=== PATIENT | male | born 1965 | race Caucasian/White ===

== ENCOUNTER 2017-06-22 17:29 | Emergency (ER) | payer MEDICARE, MEDICAID ==
[2017-06-22] MEDS ORDERED: ASPIRIN 81 MG TABLET, CHEWABLE PO ONE (17:43)
--- NOTE | 2017-06-22 17:44 | ER Document Report ---
ED Medical Screen (RME) - General Chief Complaint: Shortness Of Breath Stated Complaint: SHORTNESS OF BREATH TRAVEL OUTSIDE OF THE [place] IN LAST 30 DAYS: No - HPI Notes: 06/22/17 17:44 History of CHF progressive shortness of breath for 3 weeks now with productive cough yellow sputum - Related Data Allergies/Adverse Reactions: fluoxetine [From Prozac] Allergy (Verified 06/22/17 17:37) Past Medical History Renal/ Medical History: Denies: Hx Peritoneal Dialysis Review of Systems - Review of Systems Respiratory: Short of breath Physical Exam - Vital signs Vitals: Temp Pulse Resp BP Pulse Ox 98.3 F 107 H 18 142/62 H 95 06/22/17 17:31 06/22/17 17:31 06/22/17 17:31 06/22/17 17:31 06/22/17 17:31 - Respiratory Breath sounds: Rales, Rhonchi Course - Vital Signs Vital signs: Temp Pulse Resp BP Pulse Ox 98.3 F 107 H 18 142/62 H 95 06/22/17 17:31 06/22/17 17:31 06/22/17 17:31 06/22/17 17:31 06/22/17 17:31
[2017-06-22 18:10] LABS: ABSOLUTE BASOPHILS # (AUTO) 0.1 10^3/uL (0.0-0.2); ABSOLUTE EOSINOPHILS # (AUTO) 0.4 10^3/uL (0.0-0.6); ABSOLUTE LYMPHOCYTES (AUTO) 2.3 10^3/uL (0.5-4.7); ABSOLUTE MONOCYTES (AUTO) 0.6 10^3/uL (0.1-1.4); ABSOLUTE NEUT (AUTO) 3.1 10^3/uL (1.7-8.2); BASOPHILS % (AUTO) 1.2 % (0-2); EOSINOPHILS % (AUTO) 6.4 % (0-6); HEMATOCRIT 40.2 % (37.9-51.0); HGB HCT DIFFERENCE 1.8; LYMPHOCYTES % (AUTO) 35.2 % (13-45); MEAN CORPUSCULAR HEMOGLOBIN 32.1 pg (27.0-33.4); MEAN CORPUSCULAR HGB CONC 34.7 g/dL (32.0-36.0); MEAN CORPUSCULAR VOLUME 92 fl (80-97); MONOCYTES % (AUTO) 9.4 % (3-13); RED BLOOD COUNT 4.35 10^6/uL (4.35-5.55); RED CELL DISTRIBUTION WIDTH 14.3 % (11.5-14.0); SEGMENTED NEUTROPHILS % (AUTO) 47.8 % (42-78); WHITE BLOOD COUNT 6.5 10^3/uL (4.0-10.5)
[2017-06-22 18:28] LABS: ALANINE AMINOTRANSFERASE 79 U/L (21-72); ALBUMIN 3.9 g/dL (3.5-5.0); ALKALINE PHOSPHATASE 85 U/L (38-126); ANION GAP 12 (5-19); ASPARTATE AMINO TRANSFERASE 74 U/L (17-59); BILIRUBIN,DIRECT 0.4 mg/dL (0.0-0.4); BILIRUBIN,TOTAL 0.7 mg/dL (0.2-1.3); BLOOD UREA NITROGEN 23 mg/dL (7-20); CALCIUM 9.7 mg/dL (8.4-10.2); CARBON DIOXIDE 28 mmol/L (22-30); CHLORIDE 98 mmol/L (98-107); CREATINE KINASE 416 U/L (55-170); CREATININE RESULT 1.21 mg/dL (0.52-1.25); GLUCOSE 206 mg/dL (75-110); POTASSIUM 3.9 mmol/L (3.6-5.0); SODIUM 137.9 mmol/L (137-145); TOTAL PROTEIN 7.4 g/dL (6.3-8.2)
[2017-06-22 18:40] LABS: CREATINE KINASE MB 9.73 ng/mL (<4.55); TROPONIN I < 0.012 ng/mL
--- NOTE | 2017-06-22 19:27 | RADIOLOGY REPORT (SQ) ---
EXAM DESCRIPTION: CHEST PA/LAT COMPLETED DATE/TIME: 06/22/2017 7:12 pm REASON FOR STUDY: sob COMPARISON: None. NUMBER OF VIEWS: Two view. TECHNIQUE: Frontal and lateral radiographic views of the chest acquired. LIMITATIONS: None. FINDINGS: LUNGS AND PLEURA: No opacities, masses or pneumothorax. No pleural effusion. MEDIASTINUM AND HILAR STRUCTURES: No masses. No contour abnormalities. HEART AND VASCULAR STRUCTURES: Heart enlarged without failure. Aorta normal for age. BONES: No acute findings. HARDWARE: None in the chest. OTHER: No other significant finding. IMPRESSION: CARDIAC ENLARGEMENT WITHOUT FAILURE. TECHNICAL DOCUMENTATION: JOB ID: [id number] [employer]- All Rights Reserved
--- NOTE | 2017-06-22 19:37 | ER Document Report ---
ED General <CORNEL STERN - Last Filed: 06/22/17 19:43> - General Mode of Arrival: Wheelchair Information source: Patient TRAVEL OUTSIDE OF THE [place] IN LAST 30 DAYS: No - HPI Similar symptoms previously: Yes Recently seen / treated by doctor: No <YEIMYGRISELDA - Last Filed: 06/22/17 20:28> - General Chief Complaint: Shortness Of Breath Stated Complaint: SHORTNESS OF BREATH Time Seen by Provider: 06/22/17 17:35 Notes: Patient is a 52 year old male presenting to the emergency department for intermittent shortness of breath x3 weeks. Patient also complains of productive cough with yellow phlegm which occurs 4-5 times a day. Patient states his lower extremity edema is less than normal. Patient's PCP is in [place] and he still sees that provider since he moved here in October 2016 after his . Patient has a history of insulin dependent diabetes mellitus, hypertension, arthritis, CAD, COPD, depression, and had a IA in 2008 or 2009 with a stent placed. Patient does not have his medications or list of medicines with him but states he takes Lasix, Lisinopril, Lyrica, Novalog (50 units x3 per day), Levemir (60 units x3 per day), Percocet, arthritis medications, and inhalers x2 (steroid and Albuterol). Patient also has sleep apnea and uses BiPAP at night. Patient is a former smoker and states he drinks moonshine about 1-2 times per month. (GRISELDA GAFFNEY) - Related Data Allergies/Adverse Reactions: fluoxetine [From Prozac] Allergy (Verified 06/22/17 17:37) Past Medical History - General Information source: Patient - Social History Smoking Status: Former Smoker Cigarette use (# per day): No Chew tobacco use (# tins/day): No Smoking Education Provided: No Frequency of alcohol use: [place] x 1-2 times per month Drug Abuse: None Family History: None Patient has suicidal ideation: No Patient has homicidal ideation: No - Past Medical History Cardiac Medical History: Reports: Hx Congestive Heart Failure, Hx Coronary Artery Disease, Hx Heart Attack - x1 2008 or 2010, Hx Hypertension Pulmonary Medical History: Reports: Hx COPD Endocrine Medical History: Reports: 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 Musculoskeltal Medical History: Reports Hx Arthritis Psychiatric Medical History: Reports: Hx Depression Past Surgical History: Reports: Hx Cardiac Catheterization - w/ stent x1 (2008 or 2009) <GRISELDA GAFFNEY - Last Filed: 06/22/17 20:28> Review of Systems - Review of Systems Constitutional: No symptoms reported EENT: No symptoms reported Cardiovascular: No symptoms reported Respiratory: See HPI, Cough, Short of breath, Sputum Gastrointestinal: No symptoms reported Genitourinary: No symptoms reported Male Genitourinary: No symptoms reported Musculoskeletal: No symptoms reported Skin: No symptoms reported Hematologic/Lymphatic: No symptoms reported Neurological/Psychological: No symptoms reported -: Yes All other systems reviewed and negative <GRISELDA GAFFNEY - Last Filed: 06/22/17 20:28> Physical Exam <CORNEL STERN - Last Filed: 06/22/17 19:43> - Vital signs Interpretation: Normal <GRISELDA GAFFNEY - Last Filed: 06/22/17 20:28> - Vital signs Vitals: Temp Pulse Resp BP Pulse Ox 98.3 F 107 H 18 142/62 H 95 06/22/17 17:31 06/22/17 17:31 06/22/17 17:31 06/22/17 17:31 06/22/17 17:31 - Notes Notes: GENERAL: Alert, interacts well. No acute distress. HEAD: Normocephalic, atraumatic. EYES: Appear normal. Pupils equal, round, and reactive to light. ENT: Moist mucus membranes, tongue midline. NECK: Full range of motion. Supple. Trachea midline. LUNGS: Clear to auscultation bilaterally, no wheezes, rales, or rhonchi. No respiratory distress. HEART: Regular rate and rhythm. No murmurs, gallops, or rubs. ABDOMEN: Morbidly obese, non-tender. Non-distended. Normal bowel sounds. EXTREMITIES: Moves all 4 extremities spontaneously. Normal strength. Trace edema to the bilateral lower extremities. NEUROLOGICAL: Alert and oriented x3. Normal speech. No focal neurological deficits. GCS 15. PSYCH: Normal affect, normal mood. SKIN: Warm, dry, normal turgor. No rashes or lesions noted. (GRISELDA GAFFNEY) Course - Laboratory Result Diagrams: 06/22/17 17:55 06/22/17 17:55 - Diagnostic Test Radiology reviewed: Image reviewed, Reports reviewed - Chest x-ray shows cardiomegaly without failure or infiltrate - EKG Interpretation by Me EKG shows normal: Sinus rhythm, [place], Intervals. abnormal: QRS Complexes - Borderline anterior R-wave progression, ST-T Waves - Borderline anterolateral T abnormality Rate: Normal - 97 Rhythm: NSR Voltage: Decreased voltage, Throughout When compared to previous EKG there are: Previous EKG unavailable <CORNEL STERN - Last Filed: 06/22/17 19:43> - Laboratory Result Diagrams: 06/22/17 17:55 06/22/17 17:55 <GRISELDA GAFFNEY - Last Filed: 06/22/17 20:28> - Vital Signs Vital signs: Temp Pulse Resp BP Pulse Ox 98.3 F 107 H 16 139/84 H 96 06/22/17 17:31 06/22/17 17:31 06/22/17 19:16 06/22/17 19:16 06/22/17 19:16 - Laboratory Laboratory results interpreted by me: 06/22/17 06/22/17 06/22/17 17:55 17:55 17:55 RDW 14.3 H Plt Count 146 L Eosinophils % 6.4 H BUN 23 H Glucose 206 H AST 74 H ALT 79 H Creatine Kinase 416 H CK-MB (CK-2) 9.73 H Discharge <CORNEL STERN - Last Filed: 06/22/17 19:43> <GRISELDA GAFFNEY - Last Filed: 06/22/17 20:28> - Discharge Clinical Impression: Bronchitis Condition: Stable Disposition: HOME, SELF-CARE Additional Instructions: Bronchitis: You have acute bronchitis. This disease is an infection or inflammation of the air passageways in your lungs. Symptoms usually include cough, low grade fever, shortness of breath, and wheezing. The cough usually persists for a couple of weeks. Most cases of bronchitis get better without antibiotics. We prescribe antibiotics when we believe bacteria are damaging your airways, or if there's high risk the bronchitis will worsen into pneumonia. Increase your fluid intake. A cool mist humidifier may make your lungs more comfortable. An expectorant (cough medicine that loosens phlegm) can help. If you smoke, STOP!!! Recovery from bronchitis can be somewhat slow, but you should see improvement within a day or two. Repeated episodes of bronchitis may result in lung damage -- for example, chronic bronchitis, recurrent pneumonias, or emphysema. Call the doctor if you develop increasing fever, shortness of breath, chest pain, bloody sputum, or otherwise worsen. If you have not improved at all after several days, contact the physician. TAKE THE MEDICATION PRESCRIBED. FOLLOW UP WITH A LOCAL MEDICAL DOCTOR IF NOT IMPROVING. RETURN TO THE EMERGENCY ROOM IF ANY NEW OR WORSENING SYMPTOMS. Prescriptions: Doxycycline Hyclate 100 mg PO BID #20 tablet Scribe Attestation: 06/22/17 19:42 I personally performed the services described in the documentation, reviewed and edited the documentation which was dictated to the scribe in my presence, and it accurately records my words and actions. (CORNEL STERN) Scribe Documentation - Scribe Written by Adama:: Adama Tanner 06/22/2017 19:46 acting as scribe for :: Art <GRISELDA GAFFNEY - Last Filed: 06/22/17 20:28>
[2017-06-22] MEDS ORDERED: DOXYCYCLINE HYCLATE 100 MG TABLET PO ONE (19:45)
[2017-06-22 20:17] VITALS: BP 145/73
--- NOTE | 2017-06-22 22:02 | EKG REPORT ---
SEVERITY:- ABNORMAL ECG - SINUS RHYTHM LOW VOLTAGE THROUGHOUT CONSIDER INFERIOR INFARCT BORDERLINE R WAVE PROGRESSION, ANTERIOR LEADS BORDERLINE T ABNORMALITIES, ANT-LAT LEADS : Confirmed by: Javier Molina 22-Jun-2017 22:01:41
== END 2017-06-22 20:15 | disposition home or self-care (01) ==
LOC: ER 17:29
DX: J40 Bronchitis, not specified as acute or chronic (principal); R06.02 Shortness of breath; E10.9 Type 1 diabetes mellitus without complications; J44.9 Chronic obstructive pulmonary disease, unspecified; I50.9 Heart failure, unspecified; I25.10 Atherosclerotic heart disease of native coronary artery without angina pectoris; I11.0 Hypertensive heart disease with heart failure; Z79.4 Long term (current) use of insulin; Z87.891 Personal history of nicotine dependence; I25.2 Old myocardial infarction
CPT/HCPCS: 93005; 99285; 36415; 87070; 87205; 82553; 82550; 85025; 80053; 84484; 83880; 71020; 93010; A9270 ×2

== ENCOUNTER 2018-09-19 14:15 | Emergency (ER) | payer MEDICARE ==
[2018-09-19] MEDS ORDERED: KETOROLAC TROMETHAMINE INJ/PF 30 MG/1 ML SDV IM ONE (14:38)
--- NOTE | 2018-09-19 14:40 | ER Document Report ---
ED GI/ - General Chief Complaint: Flank Pain Stated Complaint: LEFT FLANK PAIN Time Seen by Provider: 09/19/18 14:35 Mode of Arrival: Ambulatory Information source: Patient Notes: History of Present Illness Time: [ ] Chief Complaint: [flank pain] [ ] History obtained from [patient] 53 years old male with a history of diabetes presents today with left flank pain, going on since yesterday. Associated with frequency of urination no dysuria denies any hematuria. Pain is constant with on and off exacerbation. Sharp in nature. No fever chills or other constitutional symptoms. Symptoms began: [today] Onset: [gradual] Timing: [intermittent] Quality: [``pain] Intensity: [severe] Location: [flank] Migration: [none] Radiation: [none] Mechanism: [none] Aggravating factors: [none] Relieving factors: [none] Denies significant traumatic injury Denies weakness, numbness, incontinence Denies IV drug use Denies trouble with urination Review of Systems All other systems negative as reviewed. CONSTITUTIONAL No fever. EYES No eye pain. ENT No URI symptoms, No sore throat, No ear pain. CARDIOVASCULAR No chest pain, No palpitations, No edema. RESPIRATORY No Cough, No SOB, No wheezing. GASTROINTESTINAL No abdominal pain, No diarrhea, No vomiting, No constipation, No melena, No rectal bleeding. GENITOURINARY No UTI symptoms, No bleeding. MUSCULOSKELETAL + flank pain. SKIN No Rash. NEUROLOGIC No Headache, No recent seizures, No paralysis, No parathesias. Physical Exam CONSTITUTIONAL Vital signs reviewed, comfortable, Alert and oriented X 3. Morbid obesity HEAD Atraumatic, Normal cephalic. EYES No discharge from eyes, Sclera are not injected, Extraocular muscles intact, Conjunctiva are normal. ENT Ears normal to inspection, Nose examination normal, Oropharynx normal, Mucous membranes pink, moist, normal in color. NECK Normal ROM, No jugular venous distention, No meningeal signs, No carotid bruit. RESPIRATORY/CHEST Chest is non-tender, Breath sounds normal, No respiratory distress. CARDIOVASCULAR RRR, Heart sounds normal. ABDOMEN Abdomen is non-tender, No masses, Bowel sounds normal, No distension, No peritoneal signs. BACK Left flank tenderness. Normal inspection. no focal bony tenderness, no CVA tenderness, no soft tissue tenderness, negative straight leg test bilaterally, bilateral 2+ knee deep tendon reflexes. UPPER EXTREMITY Inspection normal, No cyanosis/clubbing/edema, 2+ radial pulses. LOWER EXTREMITY Inspection normal, No cyanosis/clubbing/edema, 2+ femoral pulses. NEURO Motor exam normal, Sensory exam normal. SKIN Skin is warm and dry, No rash. PSYCHIATRIC Normal affect. TRAVEL OUTSIDE OF THE [place] IN LAST 30 DAYS: No - HPI Notes: 09/19/18 14:40 Dictated - Related Data Allergies/Adverse Reactions: fluoxetine [From Prozac] Allergy (Verified 09/19/18 14:17) Past Medical History - Social History Smoking Status: Never Smoker Cigarette use (# per day): No Chew tobacco use (# tins/day): No Smoking Education Provided: No Frequency of alcohol use: Rare Drug Abuse: None Lives with: Family Family History: None, Reviewed & Not Pertinent - Past Medical History Cardiac Medical History: Reports: Hx Congestive Heart Failure, Hx Coronary Artery Disease, Hx Heart Attack - x1 2008 or 2009, Hx Hypertension Pulmonary Medical History: Reports: Hx COPD Endocrine Medical History: Reports: 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 Renal/ Medical History: Denies: Hx Peritoneal Dialysis Musculoskeletal Medical History: Reports Hx Arthritis Psychiatric Medical History: Reports: Hx Depression Past Surgical History: Reports: Hx Cardiac Catheterization - w/ stent x1 (2008 or 2009) Review of Systems - Review of Systems Notes: Dictated Physical Exam - Vital signs Vitals: Temp Pulse Resp BP Pulse Ox 98.0 F 71 16 143/62 H 98 09/19/18 14:20 09/19/18 14:20 09/19/18 14:20 09/19/18 14:20 09/19/18 14:20 - Notes Notes: Dictated Course - Vital Signs Vital signs: Temp Pulse Resp BP Pulse Ox 98.0 F 71 16 143/62 H 98 09/19/18 14:20 09/19/18 14:20 09/19/18 14:20 09/19/18 14:20 09/19/18 14:20 - Laboratory Result Diagrams: 09/19/18 15:10 09/19/18 15:10 Laboratory results interpreted by me: 09/19/18 09/19/18 09/19/18 15:10 15:10 15:10 RBC 4.24 L RDW 14.5 H Plt Count 115 L Seg Neutrophils % 36.5 L Eosinophils % 9.9 H BUN 38 H Creatinine 1.41 H Est GFR (Non-Af Amer) 52 L Glucose 233 H AST 67 H ALT 77 H Urine Glucose (UA) 50 H Ur Leukocyte Esterase LARGE H - Diagnostic Test Radiology reviewed: Reports reviewed - Renal stone CT reported by radiologist as unremarkable. Discharge - Discharge Clinical Impression: Acute left flank pain UTI (urinary tract infection) Qualifiers: Urinary tract infection type: acute cystitis Hematuria presence: without hematuria Qualified Code(s): N30.00 - Acute cystitis without hematuria Condition: Fair Disposition: HOME, SELF-CARE Instructions: Urinary Tract Infection ([facility]) Prescriptions: Ciprofloxacin HCl [Cipro 500 mg Tablet] 500 mg PO BID #20 tablet
[2018-09-19 15:24] LABS: ABSOLUTE BASOPHILS # (AUTO) 0.1 10^3/uL (0.0-0.2); ABSOLUTE EOSINOPHILS # (AUTO) 0.6 10^3/uL (0.0-0.6); ABSOLUTE LYMPHOCYTES (AUTO) 2.6 10^3/uL (0.5-4.7); ABSOLUTE MONOCYTES (AUTO) 0.4 10^3/uL (0.1-1.4); ABSOLUTE NEUT (AUTO) 2.1 10^3/uL (1.7-8.2); BASOPHILS % (AUTO) 1.3 % (0-2); EOSINOPHILS % (AUTO) 9.9 % (0-6); HEMATOCRIT 39.9 % (37.9-51.0); HEMOGLOBIN 13.7 g/dL (13.5-17.0); MEAN CORPUSCULAR HEMOGLOBIN 32.4 pg (27.0-33.4); MEAN CORPUSCULAR HGB CONC 34.5 g/dL (32.0-36.0); MEAN CORPUSCULAR VOLUME 94 fl (80-97); MONOCYTES % (AUTO) 7.3 % (3-13); PLATELET COUNT 115 10^3/uL (150-450); RED BLOOD COUNT 4.24 10^6/uL (4.35-5.55); RED CELL DISTRIBUTION WIDTH 14.5 % (11.5-14.0); SEGMENTED NEUTROPHILS % (AUTO) 36.5 % (42-78); TOTAL CELLS COUNTED % (AUTO) 100 %; WHITE BLOOD COUNT 5.7 10^3/uL (4.0-10.5)
[2018-09-19 15:33] LABS: APPEARANCE,URINE CLEAR; BILIRUBIN,URINE NEGATIVE (NEGATIVE); COLOR,URINE YELLOW; GLUCOSE, URINE 50 mg/dL (NEGATIVE); KETONES,URINE NEGATIVE (NEGATIVE); LEUKOCYTE ESTERASE,URINE LARGE (NEGATIVE); NITRITE,URINE NEGATIVE (NEGATIVE); PROTEIN,URINE NEGATIVE (NEGATIVE); URINE SPECIFIC GRAVITY 1.014; UROBILINOGEN,URINE NEGATIVE mg/dL (<2.0)
[2018-09-19 15:39] LABS: ALANINE AMINOTRANSFERASE 77 U/L (21-72); ALBUMIN 3.8 g/dL (3.5-5.0); ALKALINE PHOSPHATASE 119 U/L (38-126); ANION GAP 9 (5-19); ASPARTATE AMINO TRANSFERASE 67 U/L (17-59); BILIRUBIN,DIRECT 0.2 mg/dL (0.0-0.4); BILIRUBIN,TOTAL 0.4 mg/dL (0.2-1.3); BLOOD UREA NITROGEN 38 mg/dL (7-20); CARBON DIOXIDE 27 mmol/L (22-30); CHLORIDE 102 mmol/L (98-107); GLUCOSE 233 mg/dL (75-110); POTASSIUM 4.7 mmol/L (3.6-5.0); SODIUM 137.8 mmol/L (137-145)
--- NOTE | 2018-09-19 15:44 | RADIOLOGY REPORT (SQ) ---
EXAM DESCRIPTION: CT LTD RENAL STONE PROTOCOL ON COMPLETED DATE/TIME: 09/19/2018 3:24 pm REASON FOR STUDY: Right flank pain COMPARISON: None. TECHNIQUE: CT scan of the abdomen and pelvis performed without intravenous or oral contrast. Images reviewed with lung, soft tissue, and bone windows. Reconstructed coronal and sagittal MPR images revi ewed. All images stored on PACS. All CT scanners at this facility use dose modulation, iterative reconstruction, and/or weight based d osing when appropriate to reduce radiation dose to as low as reasonably achievable (ALARA). [facility]: Dose Right [facility]: CareDose [facility]: Dose Right [facility]: Teradose 4D [facility]: Novariant RADIATION DOSE: CT Rad equipment meets quality standard of care and radiation dose reduction techniq ues were employed. CTDIvol: 19.2 mGy. DLP: 1094 mGy-cm.mGy. LIMITATIONS: None. FINDINGS: LOWER CHEST: No significant findings. No nodules or infiltrates. NON-CONTRASTED LIVER, SPLEEN, ADRENALS: Mild hepatosplenomegaly with fatty infiltration of the liver. No focal liver masses. No adrenal masses PANCREAS: No masses. No peripancreatic inflammatory changes. GALLBLADDER: No identified stones by CT criteria. No inflammatory changes to suggest cholecystitis. RIGHT KIDNEY AND URETER: No suspicious masses. Assessment limited by lack of IV contrast. No signif icant calcifications. No hydronephrosis or hydroureter. LEFT KIDNEY AND URETER: No suspicious masses. Assessment limited by lack of IV contrast. No signifi cant calcifications. No hydronephrosis or hydroureter. AORTA AND RETROPERITONEUM: No aneurysm. No retroperitoneal masses or adenopathy. BOWEL AND PERITONEAL CAVITY: No obvious masses or inflammatory changes. No free fluid. APPENDIX: Not identified. No right lower quadrant inflammatory change PELVIS, BLADDER, AND ABDOMINAL WALL:No abnormal masses. No free fluid. Bladder normal. BONES: Lower lumbar central stenosis from degenerative disc changes OTHER: No other significant finding. IMPRESSION: No CT findings to explain history of bilateral flank pain COMMENT: Quality ID # [id number]: Final reports with documentation of one or more dose reduction techniques (e.g., Automated exposure control, adjustment of the mA and/or kV according to patient size, use of iterative reconstruction technique) TECHNICAL DOCUMENTATION: JOB ID: [id number] [employer]- All Rights Reserved Reading location - IP/workstation name: [facility]
[2018-09-19 17:51] VITALS: BP 123/87
== END 2018-09-19 18:00 | disposition home or self-care (01) ==
LOC: ER 14:15
DX: N30.00 Acute cystitis without hematuria (principal); R10.9 Unspecified abdominal pain; J44.9 Chronic obstructive pulmonary disease, unspecified; E10.9 Type 1 diabetes mellitus without complications; Z79.4 Long term (current) use of insulin; I50.9 Heart failure, unspecified; I25.10 Atherosclerotic heart disease of native coronary artery without angina pectoris; I25.2 Old myocardial infarction
CPT/HCPCS: 99284; 96372; 36415; 85025; 80053; 81001; 76380; J1885

== ENCOUNTER 2019-02-22 20:09 | Emergency (ER) | payer MEDICARE, MEDICAID ==
[2019-02-22] MEDS ORDERED: ASPIRIN 81 MG TABLET, CHEWABLE PO ONE (20:40)
--- NOTE | 2019-02-22 20:40 | ER Document Report ---
ED Medical Screen (RME) - General Chief Complaint: Chest Pain > 30 Stated Complaint: DIFFICULTY BREATHING,RIGHT SIDED CHEST PAIN Time Seen by Provider: 02/22/19 20:35 Primary Care Provider: KIRK BEAULIEU MD [Primary Care Provider] - Follow up as needed Mode of Arrival: Wheelchair Information source: Patient Notes: Patient presents to the emergency department with complaints of midsternal chest pain with fluttering on the right side of his chest for the past week. Reports history of cardiac disease CHF stents. Patient reports he has had an upset stomach all week with cold sweats. Denies vomiting diarrhea. Reports use BiPAP. Reports he peripheral edema. I have greeted and performed a rapid initial assessment of this patient. A comprehensive ED assessment and evaluation of the patient, analysis of test results and completion of the medical decision making process will be conducted by additional ED providers. Dictation of this chart was performed using voice recognition software; therefore, there may be some unintended grammatical errors. TRAVEL OUTSIDE OF THE [place] IN LAST 30 DAYS: No - Related Data Allergies/Adverse Reactions: fluoxetine [From Prozac] Allergy (Verified 09/19/18 14:17) Past Medical History - Past Medical History Cardiac Medical History: Reports: Hx Congestive Heart Failure, Hx Coronary Artery Disease, Hx Heart Attack - x1 2008 or 2009, Hx Hypertension Pulmonary Medical History: Reports: Hx COPD Endocrine Medical History: Reports: 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 Renal/ Medical History: Denies: Hx Peritoneal Dialysis Musculoskeltal Medical History: Reports Hx Arthritis Psychiatric Medical History: Reports: Hx Depression Past Surgical History: Reports: Hx Cardiac Catheterization - w/ stent x1 (2008 or 2009) Physical Exam - Vital signs Vitals: Temp Pulse Resp BP Pulse Ox 98.0 F 80 22 H 117/51 L 95 02/22/19 20:16 02/22/19 20:16 02/22/19 20:16 02/22/19 20:16 02/22/19 20:16 Course - Vital Signs Vital signs: Temp Pulse Resp BP Pulse Ox 98.0 F 80 22 H 117/51 L 95 02/22/19 20:16 02/22/19 20:16 02/22/19 20:16 02/22/19 20:16 02/22/19 20:16 Doctor's Discharge - Discharge Referrals: KIRK BEAULIEU MD [Primary Care Provider] - Follow up as needed
[2019-02-22 21:06] LABS: ABSOLUTE BASOPHILS # (AUTO) 0.1 10^3/uL (0.0-0.2); ABSOLUTE EOSINOPHILS # (AUTO) 0.3 10^3/uL (0.0-0.6); ABSOLUTE MONOCYTES (AUTO) 0.7 10^3/uL (0.1-1.4); ABSOLUTE NEUT (AUTO) 4.1 10^3/uL (1.7-8.2); BASOPHILS % (AUTO) 0.7 % (0-2); EOSINOPHILS % (AUTO) 3.3 % (0-6); HEMATOCRIT 40.6 % (37.9-51.0); HEMOGLOBIN 13.6 g/dL (13.5-17.0); LYMPHOCYTES % (AUTO) 36.9 % (13-45); MEAN CORPUSCULAR HEMOGLOBIN 31.6 pg (27.0-33.4); MEAN CORPUSCULAR HGB CONC 33.6 g/dL (32.0-36.0); MEAN CORPUSCULAR VOLUME 94 fl (80-97); MONOCYTES % (AUTO) 8.4 % (3-13); PLATELET COUNT 152 10^3/uL (150-450); RED BLOOD COUNT 4.31 10^6/uL (4.35-5.55); SEGMENTED NEUTROPHILS % (AUTO) 50.7 % (42-78); TOTAL CELLS COUNTED % (AUTO) 100 %; WHITE BLOOD COUNT 8.1 10^3/uL (4.0-10.5)
[2019-02-22 21:20] LABS: ALANINE AMINOTRANSFERASE 30 U/L (21-72); ALBUMIN 4.2 g/dL (3.5-5.0); ALKALINE PHOSPHATASE 65 U/L (38-126); ANION GAP 13 (5-19); ASPARTATE AMINO TRANSFERASE 28 U/L (17-59); BILIRUBIN,DIRECT 0.3 mg/dL (0.0-0.4); BILIRUBIN,TOTAL 0.6 mg/dL (0.2-1.3); BLOOD UREA NITROGEN 53 mg/dL (7-20); CARBON DIOXIDE 24 mmol/L (22-30); CHLORIDE 105 mmol/L (98-107); CREATINE KINASE 317 U/L (55-170); GLUCOSE 85 mg/dL (75-110); LIPASE 166.2 U/L (23-300); POTASSIUM 4.1 mmol/L (3.6-5.0); SODIUM 142.3 mmol/L (137-145); TOTAL PROTEIN 7.8 g/dL (6.3-8.2)
--- NOTE | 2019-02-22 21:31 | RADIOLOGY REPORT (SQ) ---
XR CHEST 2 VIEWS HISTORY: Chest pain. COMPARISON: 06/22/2017 FINDINGS: The heart size is enlarged, unchanged from prior study. No pulmonary vascular congestion is seen. No consolidation, pleural effusion, or pneumothorax is seen. There are no acute bony findings. IMPRESSION: No evidence of acute cardiopulmonary disease.
--- NOTE | 2019-02-22 22:23 | ER Document Report ---
ED General - General Chief Complaint: Chest Pain > 30 Stated Complaint: DIFFICULTY BREATHING,RIGHT SIDED CHEST PAIN Time Seen by Provider: 02/22/19 20:35 Primary Care Provider: KIRK BEAULIEU MD [Primary Care Provider] - Follow up tomorrow Mode of Arrival: Wheelchair Notes: Patient is a 53-year-old morbidly obese male who presents the emergency department with a chief complaint of shortness of breath, chest pain, cold sweats, and diarrhea. He describes his chest pain as a fluttering feeling, similar to the feeling that he had when he had an DC in the early 1999. He states he started not feeling well about 2 weeks ago, but today started to have the fluttering feeling. Patient does have a history of CHF, COPD, neuropathy, degenerative joint disease, and diabetes. He states that he has been taking his medications as prescribed, but cannot recall all of his medications. He has history of a stent placement. He has not had a stress test or a cath since his DC in early . He states he also has not seen his primary care provider in the past 2 years. TRAVEL OUTSIDE OF THE [place] IN LAST 30 DAYS: No - Related Data Allergies/Adverse Reactions: fluoxetine [From Prozac] Allergy (Verified 09/19/18 14:17) Past Medical History - General Information source: Patient - Social History Smoking Status: Never Smoker Frequency of alcohol use: Occasional Drug Abuse: None Family History: None, Reviewed & Not Pertinent Patient has suicidal ideation: No Patient has homicidal ideation: No - Past Medical History Cardiac Medical History: Reports: Hx Congestive Heart Failure, Hx Coronary Artery Disease, Hx Heart Attack - x1 2008 or 2009, Hx Hypercholesterolemia, Hx Hypertension Pulmonary Medical History: Reports: Hx COPD Endocrine Medical History: Reports: 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 Renal/ Medical History: Denies: Hx Peritoneal Dialysis Musculoskeletal Medical History: Reports Hx Arthritis Psychiatric Medical History: Reports: Hx Depression Past Surgical History: Reports: Hx Cardiac Catheterization - w/ stent x1 (2008 or 2009) Review of Systems - Review of Systems Notes: REVIEW OF SYSTEMS: CONSTITUTIONAL : Denies recent illness. Denies recent unintentional weight loss. Denies fever, chills, or sweats. EENT: Denies eye, ear, throat, or mouth pain, discharge, or symptoms. Denies nasal or sinus congestion. CARDIOVASCULAR: See HPI RESPIRATORY: See HPI GASTROINTESTINAL: See HPI GENITOURINARY: Denies difficulty urinating, burning, blood in urine, urgency or frequency. MUSCULOSKELETAL: Denies neck and back pain. Denies joint pain or swelling. SKIN: Denies rash, itchiness, or lesions HEMATOLOGIC : Denies easy bruising or bleeding. LYMPHATIC: Denies swollen, painful, enlarged glands. NEUROLOGICAL: Denies no numbness or tingling denies weakness. Denies headache. Denies altered mental status. Denies alteration in speech. PSYCHIATRIC: Denies stress, anxiety, alteration in sleep patterns, or depression. All other systems reviewed and negative. Physical Exam - Vital signs Vitals: Temp Pulse Resp BP Pulse Ox 98.0 F 80 22 H 117/51 L 95 02/22/19 20:16 02/22/19 20:16 02/22/19 20:16 02/22/19 20:16 02/22/19 20:16 - Notes Notes: PHYSICAL EXAMINATION: GENERAL: Morbidly obese, no acute distress. HEAD: Normocephalic, atraumatic. EYES: PERRL, conjunctiva normal, all extraocular movements intact, sclera nonicteric ENT: Moist mucous membranes. NECK: Supple, no noticeable swelling, redness, rash. Normal range of motion. LUNGS: Equal breath sounds bilaterally and clear to auscultation. No wheezes rales or rhonchi. CARDIOVASCULAR: S1-S2, regular rate, regular rhythm. Radial pulses 2+, normal. ABDOMEN: Normoactive bowel sounds. Soft, nontender, no guarding, no rebound tenderness, and no masses palpated. EXTREMITIES: Normal strength and range of motion, no pitting or edema. No cyanosis. NEUROLOGICAL: Moves all extremities upon command. Strength 5/5 in all extremities. PSYCH: Normal mood, normal affect. SKIN: Warm, dry. No rash, lesions, ulcerations noted. Normal skin turgor. Course - Re-evaluation Re-evalutation: 02/22/19 21:45 Patient's initial troponin is 0.14. I am concerned due to the patient's risk factors that he may be having a cardiac event. I have spoke to him about his risk factors and he states that he does not want to stay because he has some things to take care of at home. I have discussed with him that if he does not state that he may . He states that he is okay with that, as he does not have any immediate family in town. He is willing to pay for a second troponin and have a BNP drawn. I discussed all risks and benefits with the patient. 02/22/19 23:56 I have spoke to the patient again and he is adamant about not being admitted to the hospital. I discussed the risk factors. And told him he would be leaving AGAINST MEDICAL ADVICE. He is aware of the risks of leaving. - Vital Signs Vital signs: Temp Pulse Resp BP Pulse Ox 98.0 F 80 18 152/60 H 97 02/22/19 20:16 02/22/19 20:16 02/23/19 00:02 02/23/19 00:02 02/23/19 00:02 - Laboratory Result Diagrams: 02/22/19 20:55 02/22/19 20:55 Laboratory results interpreted by me: 02/22/19 02/22/19 20:55 20:55 RBC 4.31 L RDW 15.0 H BUN 53 H Creatinine 2.46 H Est GFR ( Amer) 33 L Est GFR (Non-Af Amer) 27 L Creatine Kinase 317 H - EKG Interpretation by Me Additional EKG results interpreted by me: 02/22/19 His rhythm with first-degree AV block. NE 224; QRS 110; QT 384; QTC 438. No ST elevations or depressions noted. No significant change from previous EKG done on 06/22/2017. Discharge - Discharge Clinical Impression: Shortness of breath Chest pain Qualifiers: Chest pain type: other chest pain Qualified Code(s): R07.89 - Other chest pain Diarrhea Qualifiers: Diarrhea type: unspecified type Qualified Code(s): R19.7 - Diarrhea, unspecified Condition: Stable Disposition: AGAINST MEDICAL ADVICE Additional Instructions: You are seen today in the emergency department for chest pain, diarrhea, shortness of breath, cold sweats. You are choosing to leave AGAINST MEDICAL ADVICE. I highly recommend that you admitted into the hospital for further cardiac studies, but you do not want to be hospitalized. There is a possibility you could . We have discussed her risk factors and they are high for a heart attack. If you develop chest pain, shortness of breath, difficulty breathing, or have any symptoms that are worrisome to you, please return to the emergency department immediately. Please see your master sheet clerk this week. See your primary care provider tomorrow. Referrals: KIRK BEAULIEU MD [Primary Care Provider] - Follow up tomorrow
--- NOTE | 2019-02-22 23:45 | EKG REPORT ---
SEVERITY:- ABNORMAL ECG - SINUS RHYTHM FIRST DEGREE AV BLOCK LOW VOLTAGE THROUGHOUT CONSIDER INFERIOR INFARCT BORDERLINE R WAVE PROGRESSION, ANTERIOR LEADS NO CHANGE FROM 06/22/17 EKG. : Confirmed by: Hipolito Wells MD 22-Feb-2019 23:45:23
[2019-02-23 01:28] VITALS: BP 156/88
== END 2019-02-23 01:28 | disposition left against medical advice (07) ==
LOC: ER 20:09
DX: R07.9 Chest pain, unspecified (principal); J44.9 Chronic obstructive pulmonary disease, unspecified; R06.02 Shortness of breath; R61 Generalized hyperhidrosis; R19.7 Diarrhea, unspecified; I44.0 Atrioventricular block, first degree; I25.2 Old myocardial infarction; E11.40 Type 2 diabetes mellitus with diabetic neuropathy, unspecified; I25.10 Atherosclerotic heart disease of native coronary artery without angina pectoris; I10 Essential (primary) hypertension; E66.01 Morbid (severe) obesity due to excess calories; Z95.5 Presence of coronary angioplasty implant and graft; Z88.8 Allergy status to other drugs, medicaments and biological substances; Z53.29 Procedure and treatment not carried out because of patient's decision for other reasons
CPT/HCPCS: 93005; 99285; 36415; 82550; 83690; 83735; 85025; 80053; 84484; 83880; 71046; 93010; A9270

== ENCOUNTER 2019-04-28 14:30 | Inpatient (IN) | payer MEDICARE, MEDICAID ==
[2019-04-28] MEDS ORDERED: ASPIRIN 81 MG TABLET, CHEWABLE PO ONE (15:14)
--- NOTE | 2019-04-28 15:14 | ER Document Report ---
ED Medical Screen (RME) - General Chief Complaint: Shortness Of Breath Stated Complaint: DIFFICULTY BREATHING Time Seen by Provider: 04/28/19 15:07 Primary Care Provider: KIRK BEAULIEU MD [Primary Care Provider] - Follow up as needed Mode of Arrival: Wheelchair Information source: Patient Notes: Patient is a 54-year-old male with a history of CHF, COPD and heart attacks with multiple stents placed who presents to the ER today for shortness of breath that has been "going on for a while" but worsened a few days ago, worse with getting up and walking around. He denies any swelling to his legs, states that he has been taking his Lasix. Patient has tried his inhalers for COPD but states that it has not been helping. He describes chest pain as a "tightness" in the center of his chest. He states the chest pain is "not bad." He did take one baby aspirin today. TRAVEL OUTSIDE OF THE [place] IN LAST 30 DAYS: No - Related Data Allergies/Adverse Reactions: fluoxetine [From Prozac] Allergy (Verified 04/28/19 14:33) Past Medical History - General Information source: Patient - Past Medical History Cardiac Medical History: Reports: Hx Congestive Heart Failure, Hx Coronary Artery Disease, Hx Heart Attack - x1 2008 or 2010, Hx Hypercholesterolemia, Hx Hypertension Pulmonary Medical History: Reports: Hx COPD Endocrine Medical History: Reports: 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 Renal/ Medical History: Denies: Hx Peritoneal Dialysis Musculoskeltal Medical History: Reports Hx Arthritis Psychiatric Medical History: Reports: Hx Depression Past Surgical History: Reports: Hx Cardiac Catheterization - w/ stent x1 (2008 or 2009) Review of Systems - Review of Systems Cardiovascular: See HPI Respiratory: See HPI Physical Exam - Vital signs Vitals: Temp Pulse Resp BP Pulse Ox 98.5 F 57 L 19 105/71 96 04/28/19 14:39 04/28/19 14:39 04/28/19 14:39 04/28/19 14:39 04/28/19 14:39 - Notes Notes: PHYSICAL EXAMINATION: GENERAL: Well-appearing and in no acute distress. LUNGS: CTAB and equal. No wheezes rales or rhonchi. HEART: Regular rate and rhythm without murmurs Course - Vital Signs Vital signs: Temp Pulse Resp BP Pulse Ox 98.5 F 57 L 19 105/71 96 07/23/19 14:39 04/28/19 14:39 04/28/19 14:39 04/28/19 14:39 04/28/19 14:39 Doctor's Discharge - Discharge Referrals: KIRK BEAULIEU MD [Primary Care Provider] - Follow up as needed
[2019-04-28 16:07] LABS: ABSOLUTE BASOPHILS # (AUTO) 0.1 10^3/uL (0.0-0.2); ABSOLUTE EOSINOPHILS # (AUTO) 0.2 10^3/uL (0.0-0.6); ABSOLUTE LYMPHOCYTES (AUTO) 2.2 10^3/uL (0.5-4.7); ABSOLUTE MONOCYTES (AUTO) 0.5 10^3/uL (0.1-1.4); BASOPHILS % (AUTO) 0.8 % (0-2); EOSINOPHILS % (AUTO) 2.2 % (0-6); HEMATOCRIT 42.8 % (37.9-51.0); HEMOGLOBIN 14.2 g/dL (13.5-17.0); LYMPHOCYTES % (AUTO) 32.1 % (13-45); MEAN CORPUSCULAR HEMOGLOBIN 30.9 pg (27.0-33.4); MEAN CORPUSCULAR HGB CONC 33.3 g/dL (32.0-36.0); MEAN CORPUSCULAR VOLUME 93 fl (80-97); MONOCYTES % (AUTO) 6.8 % (3-13); PLATELET COUNT 152 10^3/uL (150-450); RED BLOOD COUNT 4.61 10^6/uL (4.35-5.55); SEGMENTED NEUTROPHILS % (AUTO) 58.1 % (42-78); TOTAL CELLS COUNTED % (AUTO) 100 %; WHITE BLOOD COUNT 6.9 10^3/uL (4.0-10.5)
[2019-04-28 16:25] LABS: ANION GAP 10 (5-19); BLOOD UREA NITROGEN 23 mg/dL (7-20); CALCIUM 8.8 mg/dL (8.4-10.2); CARBON DIOXIDE 23 mmol/L (22-30); CHLORIDE 106 mmol/L (98-107); CREATINE KINASE 270 U/L (55-170); GLUCOSE 116 mg/dL (75-110); POTASSIUM 4.4 mmol/L (3.6-5.0)
[2019-04-28] MEDS ORDERED: DILTIAZEM HCL INJ 25 MG/5 ML VIAL ONE (16:27)
--- NOTE | 2019-04-28 16:29 | RADIOLOGY REPORT (SQ) ---
EXAM DESCRIPTION: CHEST 2 VIEWS COMPLETED DATE/TIME: 04/28/2019 3:32 pm REASON FOR STUDY: sob, cp COMPARISON: 02/22/2019 TECHNIQUE: Frontal and lateral radiographic views of the chest acquired. NUMBER OF VIEWS: Two view. LIMITATIONS: None. FINDINGS: LUNGS AND PLEURA: No pneumothorax. No consolidation. Small right pleural effusion. MEDIASTINUM AND HILAR STRUCTURES: Stable. HEART AND VASCULAR STRUCTURES: Stable. BONES: No acute findings. HARDWARE: None in the chest. OTHER: No other significant finding. IMPRESSION: No consolidation. Small right pleural effusion. TECHNICAL DOCUMENTATION: JOB ID: [id number] [place]-72 2010 [employer]- All Rights Reserved Reading location - IP/workstation name: [employer]
[2019-04-28] MEDS ORDERED: DILTIAZEM HCL INJ 25 MG/5 ML VIAL IV ONE (16:32)
[2019-04-28 16:36] LABS: CREATINE KINASE MB 7.38 ng/mL (<4.55)
[2019-04-28 16:37] LABS: TROPONIN I < 0.012 ng/mL
[2019-04-28] MEDS: DILTIAZEM HCL/D5W 125 MG/125 ML RTUINJ IV PRN (16:45)
[2019-04-28 19:05] LABS: ALANINE AMINOTRANSFERASE 26 U/L (21-72); ALBUMIN 4.1 g/dL (3.5-5.0); ALKALINE PHOSPHATASE 77 U/L (38-126); ASPARTATE AMINO TRANSFERASE 24 U/L (17-59); BILIRUBIN,DIRECT 0.4 mg/dL (0.0-0.4); BILIRUBIN,TOTAL 0.9 mg/dL (0.2-1.3); INTERNATIONAL RATION (INR) 1.16; PARTIAL THROMBOPLASTIN TIME 29.3 SEC (23.5-35.8); PROTHROMBIN TIME 14.9 SEC (11.4-15.4); TOTAL PROTEIN 7.5 g/dL (6.3-8.2)
[2019-04-28 19:36] LABS: FREE T3 3.9 pg/mL (2.77-5.27); FREE T4 (FREE THYROXINE) 1.45 ng/dL (0.78-2.19)
[2019-04-28] MEDS ORDERED: NORMAL SALINE 500 ML IV ONE (19:41)
[2019-04-28 19:50] LABS: THYROID STIMULATING HORMONE 2.2 uIU/mL (0.47-4.68)
[2019-04-28] MEDS ORDERED: ENOXAPARIN SODIUM INJ 150 MG/1 ML DISP.SYRIN SUBCUT ONE (19:54)
[2019-04-28] MEDS ORDERED: DIGOXIN INJ 0.5 MG/2 ML AMPULE IV ONE (20:51)
--- NOTE | 2019-04-28 20:52 | ER Document Report ---
Entered by TESSA KILGORE SCRIBE 04/28/19 1829 Acting as scribe for:NORAH HENRY DO ED General - General Chief Complaint: Shortness Of Breath Stated Complaint: DIFFICULTY BREATHING Time Seen by Provider: 04/28/19 15:07 Primary Care Provider: KIRK BEAULIEU MD [Primary Care Provider] - Follow up as needed Mode of Arrival: Wheelchair Notes: Patient is a 54-year-old male with history of COPD and CHF presenting to the emergency department complaining of shortness of breath. Patient states he has been experiencing difficulty breathing for the last few days, and is only gotten worse and feels like a tightness or a squeezing sensation like there is a bowl of Jell-O around his chest. Patient denies using any oxygen at home or having history of CVA. Does admit to using BiPAP at night. Denies any history of atrial fibrillation. TRAVEL OUTSIDE OF THE [place] IN LAST 30 DAYS: No - Related Data Allergies/Adverse Reactions: fluoxetine [From [employer]] Allergy (Verified 04/28/19 14:33) Past Medical History - General Information source: Patient - Social History Smoking Status: Never Smoker Cigarette use (# per day): No Chew tobacco use (# tins/day): No Frequency of alcohol use: None Drug Abuse: None Family History: None, Reviewed & Not Pertinent Patient has suicidal ideation: No Patient has homicidal ideation: No - Past Medical History Cardiac Medical History: Reports: Hx Congestive Heart Failure, Hx Coronary Artery Disease, Hx Heart Attack - x1 2008 or 2010, Hx Hypercholesterolemia, Hx Hypertension Pulmonary Medical History: Reports: Hx COPD Endocrine Medical History: Reports: 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 Respiratory: See HPI, Short of breath Gastrointestinal: No symptoms reported Genitourinary: No symptoms reported Male Genitourinary: No symptoms reported Musculoskeletal: No symptoms reported Skin: No symptoms reported Hematologic/Lymphatic: No symptoms reported Neurological/Psychological: No symptoms reported -: Yes All other systems reviewed and negative Physical Exam - Vital signs Vitals: Temp Pulse Resp BP Pulse Ox 98.5 F 57 L 19 105/71 96 04/28/19 14:39 04/28/19 14:39 04/28/19 14:39 04/28/19 14:39 04/28/19 14:39 Notes: Initial heart rate of 57 appears to be entered in error. Patient has never been in a normal sinus rhythm at a normal rate since he arrived. - Notes Notes: PHYSICAL EXAM GENERAL: Alert, interacts well. No acute distress. Morbidly obese. HEAD: Normocephalic, atraumatic. EYES: Pupils equal, round, and reactive to light. Extraocular movements intact. ENT: Oral mucosa moist, tongue midline. NECK: Full range of motion. Supple. Trachea midline. LUNGS: Clear to auscultation bilaterally, no wheezes, rales, or rhonchi. No respiratory distress. HEART: Faint irregularly irregular, tachycardic. No murmurs, gallops, or rubs. ABDOMEN: Soft, non-tender. Non-distended. Bowel sounds present in all 4 quadrants. No guarding, rigidity, or rebound. EXTREMITIES: Moves all 4 extremities spontaneously. No edema, radial and dorsalis pedis pulses 2/4 bilaterally. No cyanosis. NEUROLOGICAL: Alert and oriented x3. Normal speech. Biceps and patellar DTRs 2+ bilaterally. PSYCH: Normal affect, normal mood. SKIN: Warm, dry, normal turgor. No pallor. Course - Re-evaluation Re-evalutation: 04/28/19 19:45 CBC unremarkable, INR slightly prolonged at 1.16, CMP shows mild bump in the creatinine to 1.34, slight elevation of the BUN to 23, CK and CK-MB are both elevated but troponin is normal, chest x-ray shows small right pleural effusion but no signs of congestive heart failure, EKG does not show a STEMI. EKG on arrival showed A. fib with rapid ventricular response, patient given a bolus of Cardizem and started on a drip of 5 mg, this was eventually titrated up to 20 mg. Patient is tolerating this well, however his heart rate still remains tachycardic ranging between 106 and 130, blood pressure is currently 129/83. Patient did have a hypotensive episode however this was immediately after sitting up and then it resolved, this appears to have been orthostatic in nature. Patient denies any history of atrial fibrillation. This appears to be new onset A. fib with RVR. Will discuss with the hospitalist for admission. 04/28/19 19:46 Patient does state that he feels better while wearing oxygen, patient has not been hypoxic while he is been here, I was able to turn his oxygen completely off while leaving the nasal cannula on and the patient states he feels much better while wearing the nasal cannula. This is obviously placebo effect as he has not been hypoxic and is not actually receiving any additional oxygen via nasal cannula. Patient does use either CPAP or BiPAP at home, patient states he uses "BiPAP at 60" at home. We will attempt to clarify this. 04/28/19 20:51 Patient has been given a dose of digoxin. Discussed with Dr. Beaulieu, given an additional dose of Lovenox and will be admitted to Dr. Beaulieu service. - Vital Signs Vital signs: Temp Pulse Resp BP Pulse Ox 98.5 F 57 L 26 H 115/78 92 04/28/19 14:39 04/28/19 14:39 04/28/19 18:01 04/28/19 18:01 04/28/19 18:01 - Laboratory Result Diagrams: 04/28/19 15:40 04/28/19 15:40 Laboratory results interpreted by me: 04/28/19 04/28/19 15:40 15:40 BUN 23 H Creatinine 1.34 H Est GFR (Non-Af Amer) 55 L Glucose 116 H Creatine Kinase 270 H CK-MB (CK-2) 7.38 H - EKG Interpretation by Me Additional EKG results interpreted by me: 04/28/19 19:46 EKG shows atrial fibrillation at a rate of 146, rapid ventricular response, low voltage, poor R wave progression, no ST segment elevations or depressions per my interpretation. Critical Care Note - Critical Care Note Total time excluding time spent on procedures (mins): 60 Discharge - Discharge Clinical Impression: New onset atrial fibrillation, Atrial fibrillation with RVR, Morbid obesity Condition: Serious Disposition: ADMITTED INPATIENT Admitting Provider: Sonny Unit Admitted: [facility] Referrals: KIRK BEAULIEU MD [Primary Care Provider] - Follow up as needed I personally performed the services described in the documentation, reviewed and edited the documentation which was dictated to the scribe in my presence, and it accurately records my words and actions.
--- NOTE | 2019-04-28 23:16 | EKG REPORT ---
SEVERITY:- ABNORMAL ECG - ATRIAL FIBRILLATION LOW VOLTAGE THROUGHOUT BORDERLINE R WAVE PROGRESSION, ANTERIOR LEADS PROLONGED QT INTERVAL : Confirmed by: Javier Molina 28-Apr-2019 23:15:30
[2019-04-29] MEDS: DILTIAZEM HCL/D5W 125 MG/125 ML RTUINJ IV PRN ×4 (01:43→23:42)
[2019-04-29] MEDS ORDERED: DEXTROSE 40% GEL 15 GM TUBE PO PRN ×2 (08:12)
[2019-04-29] MEDS ORDERED: GLUCAGON,HUMAN RECOMB 1 MG INJ IM PRN (08:12)
[2019-04-29] MEDS ORDERED: DEXTROSE 50%-WATER 25 GM/50 ML DISP.SYRIN IV PRN ×2 (08:12)
[2019-04-29] MEDS ORDERED: DIGOXIN INJ 0.5 MG/2 ML AMPULE IV ONE ×2 (09:00→18:45)
[2019-04-29] MEDS: APIXABAN 5 MG TABLET PO SCH ×2 (09:26→17:36)
[2019-04-29] MEDS ORDERED: DILTIAZEM HCL INJ 25 MG/5 ML VIAL IV ONE (11:02)
[2019-04-29 12:32] LABS: APPEARANCE,URINE CLEAR; BILIRUBIN,URINE NEGATIVE (NEGATIVE); COLOR,URINE YELLOW; GLUCOSE, URINE NEGATIVE (NEGATIVE); KETONES,URINE TRACE mg/dL (NEGATIVE); LEUKOCYTE ESTERASE,URINE LARGE (NEGATIVE); NITRITE,URINE NEGATIVE (NEGATIVE); PROTEIN,URINE NEGATIVE (NEGATIVE); UROBILINOGEN,URINE NEGATIVE mg/dL (<2.0)
[2019-04-29] MEDS: INSULIN LISPRO 100 UNIT/ML 3 ML VIAL SUBCUT SCH ×3 (13:31→22:43)
[2019-04-29] MEDS ORDERED: NITROGLYCERIN 0.4 MG/TAB 25 TAB/BOTTLE SL PRN (18:21)
[2019-04-29] MEDS ORDERED: (PENDING PHARMACY ID) (Levalbuterol Tartrate [Levalbuterol Tartrate Hfa] 1 PUFF) IH PRN (18:21)
--- NOTE | 2019-04-29 19:02 | PDOC H&P ---
History of Present Illness Admission Date/PCP: 04/28/19 21:05 KIRK OSUNKOYA Patient complains of: Difficulty with breathing History of Present Illness: DAVID PHILLIPS is a 54 year old male patient known to my practice who [presented to the ED with few days history of progressive difficulty with breathing. He denied any definite chest pain but reported feeling of heaviness and tightness in his chest that prompted his ED visit. He denied any radiation of uneasy sensation in this upper extremities. No palpitation, diaphoresis, nausea or vomiting. He denied any fever or chills. No cigarette smoking, alcohol abuse or illicit drug usage. His initial evaluation in the E was significant for atrial fibrillation with rapid ventricular rate. He was managed with IV Cardizem bolus and eventually started on infusion drip therapy. He had IV Digoxin administration with slight improvement in his heart rate. There was associated difficulty with breathing that improved with CPAP support. Patient has history of SAMY and claimed compliance with BiPAP usage at home. His morbidities include Congestive Heart Failure, Coronary Artery Disease, old Myocardial infarction, Hypertension, Hyperlipidemia, COPD, Diabetes Mellitus Type 2, Osteoarthritis, and Depression. Past Medical History Cardiac Medical History: Reports: Congestive Heart Failure, Coronary Artery Disease, Myocardial Infarction - x1 2008 or 2009, Hyperlipidema, Hypertension Pulmonary Medical History: Reports: Chronic Obstructive Pulmonary Disease (COPD) Endocrine Medical History: Reports: Diabetes Mellitus Type 2 - insulin-dependent Musculoskeltal Medical History: Reports: Arthritis Psychiatric Medical History: Reports: Depression Past Surgical History Past Surgical History: Reports: Cardiac Catheterization - w/ stent x1 (2008 or 2009) Social History Smoking Status: Never Smoker - Advance Directive Resuscitation Status: Full Code Family History Family History: None, Reviewed & Not Pertinent Parental Family History Reviewed: Yes Children Family History Reviewed: Yes Sibling(s) Family History Reviewed.: Yes Medication/Allergy Home Medications: Allopurinol [Zyloprim 300 mg Tablet] 300 mg PO DAILY 04/29/19 Amlodipine Besylate [Norvasc 5 mg Tablet] 5 mg PO Q12 04/29/19 Aspirin [Ecotrin 81 mg EC Tablet] 81 mg PO DAILY 04/29/19 Clopidogrel Bisulfate [Plavix 75 mg Tablet] 75 mg PO DAILY 04/29/19 Colchicine [Colchicine 0.6 mg Tablet] 0.6 mg PO Q12 04/29/19 Dulaglutide [Trulicity] 1.5 mg SQ MO@1000 04/29/19 Insulin Aspart [Novolog Flexpen] 50 units SQ DAILY@1500 04/29/19 Insulin Detemir [Levemir] 60 unit SQ DAILY@1500 04/29/19 Irbesartan 150 mg PO DAILY 04/29/19 Levalbuterol Tartrate [Levalbuterol Tartrate Hfa] 1 puff IH Q6HP PRN 04/29/19 Lisinopril/Hydrochlorothiazide [Lisinopril-Hctz 10-12.5 mg Tab] 1 tab PO DAILY 04/29/19 Metoprolol Tartrate [Lopressor 25 mg Tablet] 25 mg PO Q12 04/29/19 Nitroglycerin [Nitrostat 0.4 mg (1/150 Gr) Tabs 25/Bottle] 1 tab SL Q5MP PRN MDD 3 tabs 04/29/19 Pregabalin [Lyrica 100 mg Capsule] 100 mg PO Q12 04/29/19 Spironolactone [Aldactone 25 mg Tablet] 25 mg PO DAILY 04/29/19 Umeclidinium Brm/Vilanterol Tr [Anoro Ellipta 62.5-25 Mcg INH] 1 puff IH DAILY 04/29/19 Allergies/Adverse Reactions: fluoxetine [From Prozac] Allergy (Verified 04/28/19 14:33) Review of Systems Constitutional: ABSENT: chills, fever(s), headache(s), weight gain, weight loss Eyes: ABSENT: visual disturbances Ears: ABSENT: hearing changes Nose, Mouth, and Throat: ABSENT: as per HPI, headache(s), mouth pain, sore throat, vertigo, other Cardiovascular: PRESENT: dyspnea on exertion Respiratory: PRESENT: dyspnea Gastrointestinal: ABSENT: abdominal pain, constipation, diarrhea, hematemesis, hematochezia, nausea, vomiting Musculoskeletal: ABSENT: joint swelling Integumentary: ABSENT: rash, wounds Neurological: ABSENT: abnormal gait, abnormal speech, confusion, dizziness, focal weakness, syncope Psychiatric: ABSENT: anxiety, depression, homidical ideation, suicidal ideation Endocrine: ABSENT: cold intolerance, heat intolerance, polydipsia, polyuria Hematologic/Lymphatic: ABSENT: easy bleeding, easy bruising, lymphadenopathy Allergic/Immunologic: ABSENT: seasonal rhinorrhea Physical Exam Vital Signs: Temp Pulse Resp BP Pulse Ox 97.7 F 119 H 23 H 114/63 96 04/29/19 04:53 04/29/19 04:53 04/29/19 07:23 04/29/19 07:31 04/29/19 07:31 Intake & Output 04/28/19 04/29/19 04/30/19 06:59 06:59 06:59 Intake Total 672 Balance 672 Weight 175.087 kg General appearance: PRESENT: mild distress - on supplemental oxygen via nasal cannula while awake and CPAP support while sleeping, morbidly obese Head exam: PRESENT: atraumatic, normocephalic Eye exam: PRESENT: conjunctiva pink, EOMI, PERRLA. ABSENT: scleral icterus Ear exam: PRESENT: normal external ear exam Mouth exam: PRESENT: moist Teeth exam: PRESENT: poor dentation Throat exam: ABSENT: post pharyngeal erythema, tonsillar erythema, tonsillar exudate, tonsillogmegaly, other Neck exam: PRESENT: full ROM. ABSENT: carotid bruit, JVD, lymphadenopathy, thyromegaly Respiratory exam: PRESENT: clear to auscultation laura, decreased breath sounds - at lung bases Cardiovascular exam: PRESENT: irregular rhythm, +S1, +S2, tachycardia. ABSENT: diastolic murmur, systolic murmur Pulses: PRESENT: +2 pedal pulses bilateral Vascular exam: ABSENT: pallor GI/Abdominal exam: PRESENT: normal bowel sounds, soft. ABSENT: distended, guarding, mass, organolmegaly, rebound, tenderness Rectal exam: PRESENT: deferred Extremities exam: ABSENT: pedal edema Musculoskeletal exam: PRESENT: deformity - relarted to multiple joints involvment with arthritis. ABSENT: tenderness Neurological exam: PRESENT: alert, awake, oriented to person, oriented to place, oriented to time, oriented to situation, CN II-XII grossly intact. ABSENT: motor sensory deficit Psychiatric exam: PRESENT: appropriate affect, normal mood. ABSENT: homicidal ideation, suicidal ideation Skin exam: PRESENT: dry, warm Results Laboratory Results: 04/28/19 15:40 04/28/19 15:40 04/28/19 04/28/19 04/28/19 15:40 15:40 15:40 WBC 6.9 RBC 4.61 Hgb 14.2 Hct 42.8 MCV 93 MCH 30.9 MCHC 33.3 RDW 14.0 Plt Count 152 Seg Neutrophils % 58.1 Lymphocytes % 32.1 Monocytes % 6.8 Eosinophils % 2.2 Basophils % 0.8 Absolute Neutrophils 4.0 Absolute Lymphocytes 2.2 Absolute Monocytes 0.5 Absolute Eosinophils 0.2 Absolute Basophils 0.1 Sodium 139.3 Potassium 4.4 Chloride 106 Carbon Dioxide 23 Anion Gap 10 BUN 23 H Creatinine 1.34 H Est GFR ( Amer) > 60 Est GFR (Non-Af Amer) 55 L Glucose 116 H Calcium 8.8 Total Bilirubin 0.9 AST 24 ALT 26 Alkaline Phosphatase 77 Total Protein 7.5 Albumin 4.1 TSH Free T4 Free T3 pg/mL 04/28/19 15:40 WBC RBC Hgb Hct MCV MCH MCHC RDW Plt Count Seg Neutrophils % Lymphocytes % Monocytes % Eosinophils % Basophils % Absolute Neutrophils Absolute Lymphocytes Absolute Monocytes Absolute Eosinophils Absolute Basophils Sodium Potassium Chloride Carbon Dioxide Anion Gap BUN Creatinine Est GFR ( Amer) Est GFR (Non-Af Amer) Glucose Calcium Total Bilirubin AST ALT Alkaline Phosphatase Total Protein Albumin TSH 2.20 Free T4 1.45 Free T3 pg/mL 3.90 04/28/19 04/28/19 15:40 15:40 Creatine Kinase 270 H CK-MB (CK-2) 7.38 H Troponin I < 0.012 Impressions: Chest X-Ray 04/28/19 15:08 IMPRESSION: No consolidation. Small right pleural effusion. Assessment & Plan - Diagnosis (1) Atrial fibrillation with RVR Is this a current diagnosis for this admission?: Yes Plan: See admitting attending physician orders for details of care plan. (2) HTN (hypertension) Qualifiers: Hypertension type: essential hypertension Qualified Code(s): I10 - Essential (primary) hypertension Is this a current diagnosis for this admission?: Yes Plan: See admitting attending physician orders for details of care plan. (3) Type 2 diabetes mellitus with obesity Is this a current diagnosis for this admission?: Yes Plan: See admitting attending physician orders for details of care plan. (4) HLD (hyperlipidemia) Qualifiers: Hyperlipidemia type: unspecified Qualified Code(s): E78.5 - Hyperlipidemia, unspecified Is this a current diagnosis for this admission?: Yes Plan: See admitting attending physician orders for details of care plan. (5) CAD S/P percutaneous coronary angioplasty Is this a current diagnosis for this admission?: Yes Plan: See admitting attending physician orders for details of care plan. (6) Old [place] (myocardial infarction) Is this a current diagnosis for this admission?: Yes Plan: See admitting attending physician orders for details of care plan. (7) Osteoarthritis involving multiple joints on both sides of body Is this a current diagnosis for this admission?: Yes Plan: See admitting attending physician orders for details of care plan. 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 (9) SAMY and COPD overlap syndrome Is this a current diagnosis for this admission?: Yes Plan: See admitting attending physician orders for details of care plan. (10) SAMY on CPAP Is this a current diagnosis for this admission?: Yes Plan: See admitting attending physician orders for details of care plan. (11) Morbid obesity with BMI of 50.0-59.9, adult Is this a current diagnosis for this admission?: Yes Plan: See admitting attending physician orders for details of care plan. - Time Time Spent: 50 to 70 Minutes Medications reviewed and adjusted accordingly: Yes Anticipated discharge: Home with Homehealth Within: Other - Inpatient Certification Based on my medical assessment, after consideration of the patient's comorbidities, presenting symptoms, or acuity I expect that the services needed warrant INPATIENT care.: Yes I certify that my determination is in accordance with my understanding of Medicare's requirements for reasonable and necessary INPATIENT services [42 CFR 412.3e].: Yes Medical Necessity: Significant Comorbidiites Make Outpatient Treatment Too Risky, Need Close Monitoring Due to Risk of Patient Decompensation, Need For Continuous Telemetry Monitoring, Need for Nebulizer Therapy and Monitoring of Response, Risk of Complication if Not Cared For in Hospital, Risk of Diagnosis Which Will Require Inpatient Eval/Care/Monitoring Post Hospital Care: D/C [employer] Worker Documentation - Plan Summary Plan Summary: See admitting attending physician orders for details of care plan.
[2019-04-29] MEDS: METOPROLOL TARTRATE 25 MG TABLET PO SCH (21:11)
[2019-04-29] MEDS: PREGABALIN 100 MG CAPSULE PO SCH (21:12)
[2019-04-29] MEDS ORDERED: COLCHICINE 0.6 MG TABLET PO SCH (22:00)
[2019-04-30] MEDS: DILTIAZEM HCL/D5W 125 MG/125 ML RTUINJ IV PRN ×2 (00:02→00:33)
[2019-04-30] MEDS: INSULIN LISPRO 100 UNIT/ML 3 ML VIAL SUBCUT SCH ×4 (08:28→21:02)
[2019-04-30] MEDS: METOPROLOL TARTRATE 25 MG TABLET PO SCH ×2 (09:42→21:09)
[2019-04-30] MEDS: ALLOPURINOL 300 MG TABLET PO SCH (09:42)
[2019-04-30] MEDS: ASPIRIN 81 MG TABLET, ENT COATED PO SCH (09:42)
[2019-04-30] MEDS: APIXABAN 5 MG TABLET PO SCH ×2 (09:42→17:12)
[2019-04-30] MEDS: SPIRONOLACTONE 25 MG TABLET PO SCH (09:43)
[2019-04-30] MEDS: PREGABALIN 100 MG CAPSULE PO SCH ×2 (09:43→21:10)
[2019-04-30] MEDS ORDERED: INSULIN DETEMIR 60 UNIT SQ SCH (15:00)
[2019-04-30] MEDS ORDERED: INSULIN GLARGINE,HUM.REC.ANLOG 1,000 UNIT/10 ML VIAL SUBCUT SCH ×2 (15:00→22:00)
[2019-04-30] MEDS: DILTIAZEM HCL 60 MG TABLET PO SCH (18:45)
--- NOTE | 2019-04-30 22:33 | PDOC PROGRESS REPORT ---
Subjective Progress Note for:: 04/30/19 Subjective:: No chest pain. Remain on supplemental oxygen via nasal cannula and CPAP support while sleeping. No nausea, vomiting, or abdominal pain. No fever or chills. monitor technician continue to display atrial fibrillation with rapid ventricular rate but improving on IV Cardizem infusion. Reason For Visit: ATRIAL FIBRILLATION WITH RVR,SAMY,DM TYPE,HTN,HLD Physical Exam Vital Signs: Temp Pulse Resp BP Pulse Ox 98.4 F 83 16 124/79 100 04/30/19 03:49 04/30/19 06:00 04/30/19 03:49 04/30/19 06:00 04/30/19 04:26 Intake & Output 04/29/19 04/30/19 05/01/19 06:59 06:59 06:59 Intake Total 672 913 Balance 672 913 Weight 175.087 kg 175 kg General appearance: PRESENT: no acute distress, morbidly obese Head exam: PRESENT: atraumatic, normocephalic Eye exam: PRESENT: conjunctiva pink. ABSENT: scleral icterus Ear exam: PRESENT: TM's normal bilaterally Mouth exam: PRESENT: moist Teeth exam: PRESENT: poor dentation Respiratory exam: PRESENT: clear to auscultation laura, decreased breath sounds - at lung bases Cardiovascular exam: PRESENT: irregular rhythm, +S1, +S2. ABSENT: diastolic murmur, systolic murmur Vascular exam: ABSENT: pallor GI/Abdominal exam: PRESENT: normal bowel sounds, soft. ABSENT: distended, guarding, mass, organolmegaly, rebound, tenderness Extremities exam: ABSENT: pedal edema Neurological exam: PRESENT: alert, awake, oriented to person, oriented to place, oriented to time, oriented to situation, CN II-XII grossly intact. ABSENT: motor sensory deficit Psychiatric exam: PRESENT: appropriate affect, normal mood. ABSENT: homicidal ideation, suicidal ideation Skin exam: PRESENT: dry, warm Results Laboratory Results: 04/28/19 15:40 04/28/19 15:40 04/29/19 12:20 Urine Color YELLOW Urine Appearance CLEAR Urine pH 5.0 Ur Specific [place] 1.020 Urine Protein NEGATIVE Urine Glucose (UA) NEGATIVE Urine Ketones TRACE H Urine Blood SMALL H Urine Nitrite NEGATIVE Ur Leukocyte Esterase LARGE H Urine WBC (Auto) 21 Urine RBC (Auto) 1 04/28/19 04/28/19 15:40 15:40 Creatine Kinase 270 H CK-MB (CK-2) 7.38 H Troponin I < 0.012 Impressions: Chest X-Ray 04/28/19 15:08 IMPRESSION: No consolidation. Small right pleural effusion. Assessment & Plan - Diagnosis (1) Atrial fibrillation with RVR Is this a current diagnosis for this admission?: Yes (2) HTN (hypertension) Qualifiers: Hypertension type: essential hypertension Qualified Code(s): I10 - Essenti al (primary) hypertension Is this a current diagnosis for this admission?: Yes (3) Type 2 diabetes mellitus with obesity Is this a current diagnosis for this admission?: Yes (4) HLD (hyperlipidemia) Qualifiers: Hyperlipidemia type: unspecified Qualified Code(s): E78.5 - Hyperlipidemia, unspecified Is this a current diagnosis for this admission?: Yes (5) CAD S/P percutaneous coronary angioplasty Is this a current diagnosis for this admission?: Yes (6) Old [place] (myocardial infarction) Is this a current diagnosis for this admission?: Yes (7) Osteoarthritis involving multiple joints on both sides of body Is this a current diagnosis for this admission?: Yes (8) 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 Is this a current diagnosis for this admission?: Yes (9) SAMY and COPD overlap syndrome Is this a current diagnosis for this admission?: Yes (10) SAMY on CPAP Is this a current diagnosis for this admission?: Yes (11) Morbid obesity with BMI of 50.0-59.9, adult Is this a current diagnosis for this admission?: Yes - Time Time Spent with patient: 25-34 minutes Medications reviewed and adjusted accordingly: Yes Anticipated discharge: Home with Homehealth Within: Other - Inpatient Certification Based on my medical assessment, after consideration of the patient's comorbidities, presenting symptoms, or acuity I expect that the services needed warrant INPATIENT care.: Yes I certify that my determination is in accordance with my understanding of Medicare's requirements for reasonable and necessary INPATIENT services [42 CFR 412.3e].: Yes Medical Necessity: Significant Comorbidiites Make Outpatient Treatment Too Risky, Need Close Monitoring Due to Risk of Patient Decompensation, Need For Continuous Telemetry Monitoring, Risk of Complication if Not Cared For in Hospital, Risk of Diagnosis Which Will Require Inpatient Eval/Care/Monitoring 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 Continue Eliquis 5 mg po bid. Maintain on all other current medication management. His recent Lexiscan stress test completed at this facility revealed LVEF in excess of 40 % without induced ischemic response.
[2019-05-01] MEDS: DILTIAZEM HCL 60 MG TABLET PO SCH ×4 (00:39→17:35)
[2019-05-01 06:47] LABS: ABSOLUTE EOSINOPHILS # (AUTO) 0.3 10^3/uL (0.0-0.6); ABSOLUTE LYMPHOCYTES (AUTO) 2.1 10^3/uL (0.5-4.7); ABSOLUTE MONOCYTES (AUTO) 0.4 10^3/uL (0.1-1.4); ABSOLUTE NEUT (AUTO) 2.8 10^3/uL (1.7-8.2); BASOPHILS % (AUTO) 0.8 % (0-2); EOSINOPHILS % (AUTO) 5.5 % (0-6); HEMATOCRIT 38.4 % (37.9-51.0); HEMOGLOBIN 13.1 g/dL (13.5-17.0); LYMPHOCYTES % (AUTO) 36.5 % (13-45); MEAN CORPUSCULAR HEMOGLOBIN 31.3 pg (27.0-33.4); MEAN CORPUSCULAR VOLUME 92 fl (80-97); MONOCYTES % (AUTO) 7.5 % (3-13); PLATELET COUNT 131 10^3/uL (150-450); RED BLOOD COUNT 4.18 10^6/uL (4.35-5.55); RED CELL DISTRIBUTION WIDTH 13.9 % (11.5-14.0); SEGMENTED NEUTROPHILS % (AUTO) 49.7 % (42-78); TOTAL CELLS COUNTED % (AUTO) 100 %; WHITE BLOOD COUNT 5.6 10^3/uL (4.0-10.5)
[2019-05-01 07:11] LABS: ALANINE AMINOTRANSFERASE 26 U/L (21-72); ALBUMIN 3.6 g/dL (3.5-5.0); ALKALINE PHOSPHATASE 75 U/L (38-126); ANION GAP 8 (5-19); ASPARTATE AMINO TRANSFERASE 26 U/L (17-59); BILIRUBIN,DIRECT 0.3 mg/dL (0.0-0.4); BILIRUBIN,TOTAL 0.6 mg/dL (0.2-1.3); BLOOD UREA NITROGEN 15 mg/dL (7-20); CALCIUM 8.7 mg/dL (8.4-10.2); CARBON DIOXIDE 25 mmol/L (22-30); CHLORIDE 107 mmol/L (98-107); CHOLESTEROL 191.47 mg/dL (0-200); GLUCOSE 119 mg/dL (75-110); POTASSIUM 4.2 mmol/L (3.6-5.0); TOTAL PROTEIN 6.9 g/dL (6.3-8.2); TRIGLYCERIDES 123 mg/dL (<150)
[2019-05-01 07:22] LABS: DIRECT LDL 135 mg/dL (<100)
[2019-05-01] MEDS: INSULIN LISPRO 100 UNIT/ML 3 ML VIAL SUBCUT SCH ×3 (08:48→17:31)
[2019-05-01] MEDS: METOPROLOL TARTRATE 25 MG TABLET PO SCH (09:20)
[2019-05-01] MEDS: APIXABAN 5 MG TABLET PO SCH ×2 (09:20→17:35)
[2019-05-01] MEDS: SPIRONOLACTONE 25 MG TABLET PO SCH (09:20)
[2019-05-01] MEDS: ALLOPURINOL 300 MG TABLET PO SCH (09:20)
[2019-05-01] MEDS: PREGABALIN 100 MG CAPSULE PO SCH (09:20)
[2019-05-01] MEDS: ASPIRIN 81 MG TABLET, ENT COATED PO SCH (09:20)
--- NOTE | 2019-05-01 17:09 | PDOC DISCHARGE SUMMARY ---
General - Admit/Disc Date/PCP Admission Date/Primary Care Provider: 04/28/19 21:05 KIRK BRITTNEE Discharge Date: 05/01/19 - Discharge Diagnosis (1) Atrial fibrillation with RVR Is this a current diagnosis for this admission?: Yes (2) HTN (hypertension) Is this a current diagnosis for this admission?: Yes (3) Type 2 diabetes mellitus with obesity Is this a current diagnosis for this admission?: Yes (4) HLD (hyperlipidemia) Is this a current diagnosis for this admission?: Yes (5) CAD S/P percutaneous coronary angioplasty Is this a current diagnosis for this admission?: Yes (6) Old [place] (myocardial infarction) Is this a current diagnosis for this admission?: Yes (7) Osteoarthritis involving multiple joints on both sides of body Is this a current diagnosis for this admission?: Yes (8) 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 Is this a current diagnosis for this admission?: Yes (9) SAMY and COPD overlap syndrome Is this a current diagnosis for this admission?: Yes (10) SAMY on CPAP Is this a current diagnosis for this admission?: Yes (11) Morbid obesity with BMI of 50.0-59.9, adult Is this a current diagnosis for this admission?: Yes - Additional Information Resuscitation Status: Full Code Prescriptions: Apixaban [Eliquis 5 mg Tablet] 5 mg PO BID #60 tablet Diltiazem HCl [Diltiazem 24Hr ER] 240 mg PO DAILY #30 cap.er.24h Home Medications: Allopurinol [Zyloprim 300 mg Tablet] 300 mg PO DAILY 04/29/19 Aspirin [Ecotrin 81 mg EC Tablet] 81 mg PO DAILY 04/29/19 Colchicine [Colchicine 0.6 mg Tablet] 0.6 mg PO Q12 04/29/19 Dulaglutide [Trulicity] 1.5 mg SQ MO@1000 04/29/19 Insulin Detemir [Levemir] 60 unit SQ DAILY@1500 04/29/19 Irbesartan 150 mg PO DAILY 04/29/19 Levalbuterol Tartrate [Levalbuterol Tartrate Hfa] 1 puff IH Q6HP PRN 04/29/19 Metoprolol Tartrate [Lopressor 25 mg Tablet] 25 mg PO Q12 04/29/19 Nitroglycerin [Nitrostat 0.4 mg (1/150 Gr) Tabs 25/Bottle] 1 tab SL Q5MP PRN MDD 3 tabs 04/29/19 Pregabalin [Lyrica 100 mg Capsule] 100 mg PO Q12 04/29/19 Spironolactone [Aldactone 25 mg Tablet] 25 mg PO DAILY 04/29/19 Umeclidinium Brm/Vilanterol Tr [Anoro Ellipta 62.5-25 Mcg INH] 1 puff IH DAILY 04/29/19 Apixaban [Eliquis 5 mg Tablet] 5 mg PO BID #60 tablet 05/01/19 Diltiazem HCl [Diltiazem 24Hr ER] 240 mg PO DAILY #30 cap.er.24h 05/01/19 Insulin Aspart [Novolog Flexpen] 50 units SQ TID #3 pkt 05/01/19 History of Present Illness Patient complains of: Difficulty with breathing History of Present Illness: DAVID PHILLIPS is a 54 year old male patient known to my practice who [presented to the ED with few days history of progressive difficulty with breathing. He denied any definite chest pain but reported feeling of heaviness and tightness in his chest that prompted his ED visit. He denied any radiation of uneasy sensation in this upper extremities. No palpitation, diaphoresis, nausea or vomiting. He denied any fever or chills. No cigarette smoking, alcohol abuse or illicit drug usage. His initial evaluation in the E was significant for atrial fibrillation with rapid ventricular rate. He was managed with IV Cardizem bolus and eventually started on infusion drip therapy. He had IV Digoxin administration with slight improvement in his heart rate. There was associated difficulty with breathing that improved with CPAP support. Patient has history of SAMY and claimed compliance with BiPAP usage at home. His morbidities include Diabetes Mellitus Type 2, Hypertension, Hyperlipidemia, Congestive Heart Failure, Coronary Artery Disease, old Myocardial infarction, COPD, Osteoa rthritis, and Depression. Hospital Course Hospital Course: Patient was admitted as case of new onset Atrial Fibrillation with rapid ventricular rate. he was initially treated with Lovenox in the ED and IV Cardizem infusion as well as several doses of IV Digoxin for rate control. He was eventually restarted on his home medication including oral metoprolol. He transition to oral Cardizem therapy and have remained in acceptable heart rate range. he was started on Eliquis for anticoagulation and he will remain on same. He will be discharged home today and follow up in the office as instructed upon discharge. Physical Exam Vital Signs: Temp Pulse Resp BP Pulse Ox 97.6 F 115 H 17 122/67 96 05/01/19 12:28 05/01/19 14:00 05/01/19 12:28 05/01/19 12:28 05/01/19 16:00 Intake & Output 04/30/19 05/01/19 05/02/19 06:59 06:59 06:59 Intake Total 913 1045 720 Output Total 500 Balance 913 545 720 Weight 175 kg 173 kg Physical Exam: General appearance: PRESENT: no acute distress, morbidly obese Head exam: PRESENT: atraumatic, normocephalic Eye exam: PRESENT: conjunctiva pink. ABSENT: pallor, scleral icterus Ear exam: PRESENT: TM's normal bilaterally Mouth exam: PRESENT: moist Teeth exam: PRESENT: poor dentition Respiratory exam: PRESENT: clear to auscultation laura, decreased breath sounds - at lung bases Cardiovascular exam: PRESENT: irregular rhythm, +S1, +S2. ABSENT: diastolic murmur, systolic murmur GI/Abdominal exam: PRESENT: normal bowel sounds, soft. ABSENT: distended, guarding, mass, organomegaly, rebound, tenderness Extremities exam: ABSENT: pedal edema Neurological exam: PRESENT: alert, awake, oriented to person, oriented to place, oriented to time, oriented to situation, CN II-XII grossly intact. ABSENT: motor sensory deficit Psychiatric exam: PRESENT: appropriate affect, normal mood. ABSENT: homicidal ideation, suicidal ideation Skin exam: PRESENT: dry, warm Results Laboratory Results: 05/01/19 06:14 05/01/19 06:14 05/01/19 05/01/19 06:14 06:14 WBC 5.6 RBC 4.18 L Hgb 13.1 L Hct 38.4 MCV 92 MCH 31.3 MCHC 34.0 RDW 13.9 Plt Count 131 L Seg Neutrophils % 49.7 Lymphocytes % 36.5 Monocytes % 7.5 Eosinophils % 5.5 Basophils % 0.8 Absolute Neutrophils 2.8 Absolute Lymphocytes 2.1 Absolute Monocytes 0.4 Absolute Eosinophils 0.3 Absolute Basophils 0.0 Sodium 139.9 Potassium 4.2 Chloride 107 Carbon Dioxide 25 Anion Gap 8 BUN 15 Creatinine 1.08 Est GFR ( Amer) > 60 Est GFR (Non-Af Amer) > 60 Glucose 119 H Calcium 8.7 Total Bilirubin 0.6 AST 26 ALT 26 Alkaline Phosphatase 75 Total Protein 6.9 Albumin 3.6 Triglycerides 123 Cholesterol 191.47 LDL Cholesterol Direct 135 H VLDL Cholesterol 25.0 HDL Cholesterol 30 L 04/28/19 04/28/19 15:40 15:40 Creatine Kinase 270 H CK-MB (CK-2) 7.38 H Troponin I < 0.012 Impressions: Chest X-Ray 04/28/19 15:08 IMPRESSION: No consolidation. Small right pleural effusion. Qualifiers - * PATIENT BEING DISCHARGED WITH ANY OF THE FOLLOWING DIAGNOSIS: No Acute Heart Failure - Is this a Heart Failure Patient?: No Plan Discharge Plan: D/C home today. Follow up in the office as instructed upon discharge.
[2019-05-01 17:57] VITALS: BP 134/71
--- NOTE | 2019-06-16 20:54 | Progress Note ---
Provider Note Provider Note: Diagnosis clarification on atrial fibrillation: New onset Atrial Fibrillation.
== END 2019-05-01 18:33 | disposition home or self-care (01) | DRG 309 ==
LOC: ER 14:30 → EH 21:05 → 3S 04-29 12:36
PROVIDERS: ADMIT Internal Medicine Geriatric Medicine; ATTEND Internal Medicine Geriatric Medicine
PROC: 5A09457 Assistance with Respiratory Ventilation, 24-96 Consecutive Hours, Continuous Positive Airway Pressure (ICD-10-PCS; principal; 2019-04-28)
DX: I48.91 Unspecified atrial fibrillation (principal); Z68.43 Body mass index [BMI] 50.0-59.9, adult; G47.33 Obstructive sleep apnea (adult) (pediatric); E11.9 Type 2 diabetes mellitus without complications; E78.5 Hyperlipidemia, unspecified; I25.10 Atherosclerotic heart disease of native coronary artery without angina pectoris; M15.3 Secondary multiple arthritis; M1A.9XX0 Chronic gout, unspecified, without tophus (tophi); J44.9 Chronic obstructive pulmonary disease, unspecified; E66.01 Morbid (severe) obesity due to excess calories; F32.9 Major depressive disorder, single episode, unspecified; I10 Essential (primary) hypertension; E78.00 Pure hypercholesterolemia, unspecified; I25.2 Old myocardial infarction; Z79.899 Other long term (current) drug therapy; Z79.82 Long term (current) use of aspirin; Z79.4 Long term (current) use of insulin; Z95.5 Presence of coronary angioplasty implant and graft; Z88.8 Allergy status to other drugs, medicaments and biological substances
CPT/HCPCS: 36415; 71046; 80048; 80053; 80061; 80076; 81001; 82550; 82553; 82962; 83036; 84439; 84443; 84481; 84484; 85025; 85610; 85730; 93005; 93010; 94660; 96365; 96366; 99291; J1160; J1650; J1815; J3490; J7040

== ENCOUNTER 2019-05-16 19:48 | Inpatient (IN) | payer MEDICAID, MEDICARE ==
[2019-05-16] MEDS ORDERED: ASPIRIN 81 MG TABLET, CHEWABLE PO ONE (20:13)
--- NOTE | 2019-05-16 20:42 | ER Document Report ---
ED Respiratory Problem - General Chief Complaint: Breathing Difficulty Stated Complaint: SHORTNESS OF BREATH Time Seen by Provider: 05/16/19 20:12 Primary Care Provider: KIRK BEAULIEU MD [Primary Care Provider] - Follow up as needed Notes: Patient is a 54-year-old male morbidly obese presents to the emergency dep artment for respiratory distress. Patient was recently diagnosed with atrial fibrillation rapid ventricular rate on 04/28/2019. He was admitted to ICU and inevitably discharged on 05/01/2019. Patient states he was placed on Eliquis, Cardizem, spironolactone upon his discharge. Patient states he was unable to get his spironolactone filled but is recently gotten it filled and started taking on Saturday. States he is taken 1 dose Saturday and 1 dose on Saturday. Patient states he is continue with generalized respiratory distress since his discharge. States it is worse upon exertion and when he tries to talk in long sentences. Patient also was initially complaining of a generalized tightness in the center of his chest. Upon my examination patient was currently sitting on the side of the bed. He does have oxygen in place via nasal cannula 2 L/min. Patient states he overall feels a lot better on oxygen. Patient voices concern that he wants to go home on oxygen but his doctor will not let him. States he no longer has any chest tightness. States the only time he becomes short of breath is when he exerts himself. Patient states he also felt as on the hospital he was urinating more. States he had a bedside commode which made it easier for him to urinate. Patient voices that he would like a bedside commode at home. Patient is denying any fevers, nausea, vomiting, abdominal pain, dysuria. Patient does have a home health nurse who told him that "your lungs are full of fluid." On patient's discharge paperwork there is a handwritten note that patient takes Lasix 40 mg daily. Patient is unsure if he still takes Lasix. States he did take it at one time and now takes "whatever is on that paper." Medications: Spironolactone, Eliquis, Cardizem, NovoLog, metoprolol, nitrog lycerin, colchicine Allergies: Prozac TRAVEL OUTSIDE OF THE [place] IN LAST 30 DAYS: No - Related Data Allergies/Adverse Reactions: fluoxetine [From Prozac] Allergy (Verified 04/28/19 14:33) Past Medical History - General Information source: Patient - Social History Smoking Status: Never Smoker Chew tobacco use (# tins/day): No Frequency of alcohol use: None Drug Abuse: None Family History: None, Reviewed & Not Pertinent Patient has suicidal ideation: No Patient has homicidal ideation: No - Past Medical History Cardiac Medical History: Reports: Hx Congestive Heart Failure, Hx Coronary Artery Disease, Hx Heart Attack - x1 2008 or 2009, Hx Hypercholesterolemia, Hx Hypertension Pulmonary Medical History: Reports: Hx COPD Endocrine Medical History: Reports: 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, Hx Diabetes Mellitus Type 2 - insulin-dependent Renal/ Medical History: Denies: Hx Peritoneal Dialysis Musculoskeletal Medical History: Reports Hx Arthritis Psychiatric Medical History: Reports: Hx Depression Past Surgical History: Reports: Hx Cardiac Catheterization - w/ stent x1 (2008 or 2009) Review of Systems - Review of Systems Constitutional: denies: Fever EENT: No symptoms reported Cardiovascular: See HPI Respiratory: See HPI Gastrointestinal: See HPI Genitourinary: See HPI Male Genitourinary: No symptoms reported Musculoskeletal: No symptoms reported Skin: No symptoms reported Hematologic/Lymphatic: No symptoms reported Neurological/Psychological: No symptoms reported Physical Exam - Vital signs Vitals: Resp Pulse Ox 30 H 96 05/16/19 19:56 05/16/19 19:56 - Notes Notes: GENERAL: Morbidly obese, alert, interacts well. No acute distress at rest. HEAD: Normocephalic, atraumatic. EYES: Pupils equal, round, and reactive to light. Extraocular movements intact. ENT: Oral mucosa moist, tongue midline. NECK: Full range of motion. Supple. Trachea midline. LUNGS: Clear to auscultation bilaterally apices. no wheezes, rales, or rhonchi. Diminished bilateral bases. No respiratory distress noted at rest. When josé luis ent starts speaking he becomes tachypneic. HEART: Irregular rate and rhythm ranging from 90-116. ABDOMEN: Soft, non-tender. Non-distended. Bowel sounds present in all 4 quadrants. EXTREMITIES: Moves all 4 extremities spontaneously. No edema, normal radial and dorsalis pedis pulses bilaterally. No cyanosis. BACK: no cervical, thoracic, lumbar midline tenderness. No saddle anesthesia, normal distal neurovascular exam. NEUROLOGICAL: Alert and oriented x3. Normal speech. cranial nerves II through X II grossly intact PSYCH: Normal affect, normal mood. SKIN: Warm, dry, normal turgor. Course - Re-evaluation Re-evalutation: 05/16/19 23:03 Laboratory 05/16/19 05/16/19 05/16/19 20:20 20:53 20:53 WBC 6.3 RBC 4.22 L Hgb 12.9 L Hct 39.0 MCV 93 MCH 30.6 MCHC 33.1 RDW 13.8 Plt Count 143 L Seg Neutrophils % 71.8 Lymphocytes % 17.9 Monocytes % 6.5 Eosinophils % 2.9 Basophils % 0.9 Absolute Neutrophils 4.5 Absolute Lymphocytes 1.1 Absolute Monocytes 0.4 Absolute Eosinophils 0.2 Absolute Basophils 0.1 PT 16.4 H INR 1.32 Sodium Potassium Chloride Carbon Dioxide Anion Gap BUN Creatinine Est GFR ( Amer) Est GFR (Non-Af Amer) Glucose Lactic Acid Calcium Total Bilirubin Direct Bilirubin Neonat Total Bilirubin Neonat Direct Bilirubin Neonat Indirect Bili AST ALT Alkaline Phosphatase Creatine Kinase CK-MB (CK-2) Troponin I NT-Pro-B Natriuret Pep Total Protein Albumin Urine Color YELLOW Urine Appearance CLOUDY Urine pH 5.0 Ur Specific [place] 1.021 Urine Protein 30 H Urine Glucose (UA) NEGATIVE Urine Ketones NEGATIVE Urine Blood MODERATE H Urine Nitrite NEGATIVE Urine Bilirubin NEGATIVE Urine Urobilinogen NEGATIVE Ur Leukocyte Esterase LARGE H Urine WBC (Auto) >182 Urine RBC (Auto) 22 Urine WBC Clumps FEW Squamous Epi Cells Auto 1 Urine Mucus (Auto) RARE Urine Ascorbic Acid NEGATIVE 05/16/19 05/16/19 05/16/19 20:53 20:53 21:46 WBC RBC Hgb Hct MCV MCH MCHC RDW Plt Count Seg Neutrophils % Lymphocytes % Monocytes % Eosinophils % Basophils % Absolute Neutrophils Absolute Lymphocytes Absolute Monocytes Absolute Eosinophils Absolute Basophils PT INR Sodium 138.9 Potassium 4.4 Chloride 104 Carbon Dioxide 25 Anion Gap 10 BUN 21 H Creatinine 1.17 Est GFR ( Amer) > 60 Est GFR (Non-Af Amer) > 60 Glucose 167 H Lactic Acid 1.1 Calcium 9.0 Total Bilirubin 0.6 Direct Bilirubin 0.3 Neonat Total Bilirubin Not Reportable Neonat Direct Bilirubin Not Reportable Neonat Indirect Bili Not Reportable AST 30 ALT 24 Alkaline Phosphatase 108 Creatine Kinase 274 H CK-MB (CK-2) 6.65 H Troponin I < 0.012 NT-Pro-B Natriuret Pep 1750 H Total Protein 7.4 Albumin 4.1 Urine Color Urine Appearance Urine pH Ur Specific [place] Urine Protein Urine Glucose (UA) Urine Ketones Urine Blood Urine Nitrite Urine Bilirubin Urine Urobilinogen Ur Leukocyte Esterase Urine WBC (Auto) Urine RBC (Auto) Urine WBC Clumps Squamous Epi Cells Auto Urine Mucus (Auto) Urine Ascorbic Acid Chest X-Ray 05/16/19 20:13 IMPRESSION: Cardiomegaly, pleural effusions and pulmonary edema. I have discussed this case with my attending Dr. Whipple who is suggesting one SL nitro and starting the pt. on BIPAP. Patient is Evangelista been given 40 mg of IV Lasix and initial dose of antibiotics for urinary tract infection. Urine sent for culture. Patient's chest x-ray is significantly worse from patient's recent admission to the hospital with bilateral pleural effusions and pulmonary congestion. BNP went from 51 to 1750. Patient has remained at 97% room air. Nasal cannula was kept in place for patient's comfort but oxygen was stopped by myself. Patient's heart rate on the monitor reads anywhere from 90-113 atrial fibrillation. EKG shows atrial fibrillation rate of 118, no ST segment elevations or depressions noted. I discussed this case with admitting hospitalist Dr. Hayes. He is wishing for an ABG at this time and also suggesting another 20 mg of IV Lasix. We have discussed admitting the patient to [facility] for continued care. Dr. Hayes is the accepting physician. - Vital Signs Vital signs: Temp Pulse Resp BP Pulse Ox 97.9 F 18 125/84 97 05/16/19 20:00 05/16/19 20:01 05/16/19 20:00 05/16/19 20:13 - Laboratory Result Diagrams: 05/16/19 20:53 05/16/19 20:53 Laboratory results interpreted by me: 05/16/19 05/16/19 05/16/19 20:20 20:53 20:53 RBC 4.22 L Hgb 12.9 L Plt Count 143 L PT 16.4 H BUN Glucose Creatine Kinase CK-MB (CK-2) NT-Pro-B Natriuret Pep Urine Protein 30 H Urine Blood MODERATE H Ur Leukocyte Esterase LARGE H 05/16/19 05/16/19 20:53 20:53 RBC Hgb Plt Count PT BUN 21 H Glucose 167 H Creatine Kinase 274 H CK-MB (CK-2) 6.65 H NT-Pro-B Natriuret Pep 1750 H Urine Protein Urine Blood Ur Leukocyte Esterase Discharge - Discharge Clinical Impression: Pleural effusion due to CHF (congestive heart failure) Congestive heart failure (CHF) Qualifiers: Heart failure type: unspecified Heart failure chronicity: unspecified Qualified Code(s): I50.9 - Heart failure, unspecified Condition: Stable Disposition: ADMITTED INPATIENT Admitting Provider: Hayes Unit Admitted: IMCU Referrals: KIRK BEAULIEU MD [Primary Care Provider] - Follow up as needed
[2019-05-16 21:01] LABS: ABSOLUTE BASOPHILS # (AUTO) 0.1 10^3/uL (0.0-0.2); ABSOLUTE EOSINOPHILS # (AUTO) 0.2 10^3/uL (0.0-0.6); ABSOLUTE LYMPHOCYTES (AUTO) 1.1 10^3/uL (0.5-4.7); ABSOLUTE MONOCYTES (AUTO) 0.4 10^3/uL (0.1-1.4); ABSOLUTE NEUT (AUTO) 4.5 10^3/uL (1.7-8.2); BASOPHILS % (AUTO) 0.9 % (0-2); EOSINOPHILS % (AUTO) 2.9 % (0-6); HEMOGLOBIN 12.9 g/dL (13.5-17.0); LYMPHOCYTES % (AUTO) 17.9 % (13-45); MEAN CORPUSCULAR HEMOGLOBIN 30.6 pg (27.0-33.4); MEAN CORPUSCULAR HGB CONC 33.1 g/dL (32.0-36.0); MEAN CORPUSCULAR VOLUME 93 fl (80-97); MONOCYTES % (AUTO) 6.5 % (3-13); PLATELET COUNT 143 10^3/uL (150-450); RED BLOOD COUNT 4.22 10^6/uL (4.35-5.55); RED CELL DISTRIBUTION WIDTH 13.8 % (11.5-14.0); SEGMENTED NEUTROPHILS % (AUTO) 71.8 % (42-78); TOTAL CELLS COUNTED % (AUTO) 100 %; WHITE BLOOD COUNT 6.3 10^3/uL (4.0-10.5)
[2019-05-16 21:20] LABS: APPEARANCE,URINE CLOUDY; BILIRUBIN,URINE NEGATIVE (NEGATIVE); COLOR,URINE YELLOW; GLUCOSE, URINE NEGATIVE (NEGATIVE); KETONES,URINE NEGATIVE (NEGATIVE); LEUKOCYTE ESTERASE,URINE LARGE (NEGATIVE); NITRITE,URINE NEGATIVE (NEGATIVE); PROTEIN,URINE 30 mg/dL (NEGATIVE); URINE SPECIFIC GRAVITY 1.021; UROBILINOGEN,URINE NEGATIVE mg/dL (<2.0)
--- NOTE | 2019-05-16 21:21 | RADIOLOGY REPORT (SQ) ---
EXAM DESCRIPTION: XR CHEST 1 VIEW COMPLETED DATE/TME: 05/16/2019 20:13 CLINICAL HISTORY: 54 years, Male, SOB COMPARISON: EXAM DESCRIPTION: CLINICAL HISTORY: SOB COMPARISON: 06/22/2017 FINDINGS: Single view of the chest is submitted. Cardiac silhouette is markedly enlarged. There is bilateral pulmonary edema with atelectasis at both lung bases and bilateral pleural effusions. Habitus significantly limits detail. IMPRESSION: Cardiomegaly, pleural effusions and pulmonary edema.
[2019-05-16 21:22] LABS: ALBUMIN 4.1 g/dL (3.5-5.0); ALKALINE PHOSPHATASE 108 U/L (38-126); ANION GAP 10 (5-19); ASPARTATE AMINO TRANSFERASE 30 U/L (17-59); BILIRUBIN,DIRECT 0.3 mg/dL (0.0-0.4); BILIRUBIN,TOTAL 0.6 mg/dL (0.2-1.3); BLOOD UREA NITROGEN 21 mg/dL (7-20); CARBON DIOXIDE 25 mmol/L (22-30); CHLORIDE 104 mmol/L (98-107); CREATINE KINASE 274 U/L (55-170); GLUCOSE 167 mg/dL (75-110); POTASSIUM 4.4 mmol/L (3.6-5.0); TOTAL PROTEIN 7.4 g/dL (6.3-8.2)
[2019-05-16 21:23] LABS: INTERNATIONAL RATION (INR) 1.32; PROTHROMBIN TIME 16.4 SEC (11.4-15.4)
[2019-05-16] MEDS ORDERED: FUROSEMIDE INJ/PF 40 MG/4 ML SDV IV ONE ×2 (21:30→23:00)
[2019-05-16] MEDS ORDERED: CEFTRIAXONE 1 GM/D5W RTU 1 GM/50 ML RTUPB IV ONE ×2 (21:31→22:04)
[2019-05-16 21:34] LABS: CREATINE KINASE MB 6.65 ng/mL (<4.55); NT PRO BNP 1750 pg/mL (5-900); TROPONIN I < 0.012 ng/mL
[2019-05-16] MEDS ORDERED: NITROGLYCERIN 0.4 MG/TAB 25 TAB/BOTTLE SL ONE (22:45)
[2019-05-16] MEDS ORDERED: IPRATROPIUM/ALBUTEROL 0.5-2.5 MG/3 ML AMPUL NEB PRN (22:56)
[2019-05-16] MEDS ORDERED: ACETAMINOPHEN 325 MG TABLET PO PRN (22:56)
[2019-05-16] MEDS ORDERED: DEXTROSE 50%-WATER 25 GM/50 ML DISP.SYRIN IV PRN ×2 (23:05)
[2019-05-16] MEDS ORDERED: GLUCAGON,HUMAN RECOMB 1 MG INJ IM PRN (23:05)
[2019-05-16] MEDS ORDERED: DEXTROSE 40% GEL 15 GM TUBE PO PRN ×2 (23:05)
[2019-05-17] MEDS ORDERED: NITROGLYCERIN 0.4 MG/TAB 25 TAB/BOTTLE SL PRN (02:18)
[2019-05-17] MEDS ORDERED: DILTIAZEM HCL 120 MG CAP.SR.24H PO PRN (02:47)
[2019-05-17] MEDS ORDERED: METOPROLOL TARTRATE 50 MG TABLET PO ONE (03:00)
--- NOTE | 2019-05-17 03:09 | PDOC H&P ---
History of Present Illness Admission Date/PCP: 05/16/19 23:17 KIRK BEAULIEU Patient complains of: Shortness of the breath History of Present Illness: DAVID PHILLIPS is a 54 year old male This is a 54-year-old male patient of Dr. Beaulieu came to the emergency de partment with a respiratory distressed Patient was recently diagnosed with atrial fibrillation with rapid ventricular rate on April 2019 he was admitting in the ICU and discharged on Patient was placed on Eliquis Cardizem and Spironolactone upon discharge Patient stated he was unable to get his Spironolactone filled but recently got it filled and started taking on Saturday. He take 1 dose Saturday and 1 dose Saturday at patient is status continues to be generalized respiratory distress since his discharge it got more worse on exertion's when he tried to talk a long sentence. Patient's denied any chest pain Patient was put on 2 L nasal cannula in the ER and patient's overall feels better and patient's was put on BiPAP Chest x-ray shows left pleural effusion and pulmonary edema and giving IV Lasix When I saw the patient on the floor in IMCU patient is feeling much better Is denied any chest pain to than any shortness of the breath Patient also having some positive urine giving Rocephin IV in the ER Past Medical History Cardiac Medical History: Reports: Atrial Fibrillation, Congestive Heart Failure, Coronary Artery Disease, Myocardial Infarction - x1 2008 or 2009, Hyperlipidema, Hypertension Pulmonary Medical History: Reports: Chronic Obstructive Pulmonary Disease (COPD), Sleep Apnea Endocrine Medical History: Reports: Diabetes Mellitus Type 2 - insulin-dependent GI Medical History: Reports: Gastroesophageal Reflux Disease Musculoskeltal Medical History: Reports: Arthritis Psychiatric Medical History: Reports: Depression Past Surgical History Past Surgical History: Reports: Cardiac Catheterization - w/ stent x1 (2008 or 2009) Social History Information Source: Patient Smoking Status: Never Smoker Frequency of Alcohol Use: Occasional Hx Recreational Drug Use: No Drugs: None Hx Prescription Drug Abuse: No - Advance Directive Resuscitation Status: Full Code Family History Family History: None, Reviewed & Not Pertinent Parental Family History Reviewed: No Children Family History Reviewed: Unknown Sibling(s) Family History Reviewed.: Unknown Medication/Allergy Home Medications: Allopurinol [Zyloprim 300 mg Tablet] 300 mg PO DAILY 04/29/19 Aspirin [Ecotrin 81 mg EC Tablet] 81 mg PO DAILY 04/29/19 Colchicine [Colchicine 0.6 mg Tablet] 0.6 mg PO Q12 04/29/19 Dulaglutide [Trulicity] 1.5 mg SQ MO@1000 04/29/19 Insulin Detemir [Levemir] 60 unit SQ DAILY@1500 04/29/19 Irbesartan 150 mg PO DAILY 04/29/19 Levalbuterol Tartrate [Levalbuterol Tartrate Hfa] 1 puff IH Q6HP PRN 04/29/19 Metoprolol Tartrate [Lopressor 25 mg Tablet] 25 mg PO Q12 04/29/19 Nitroglycerin [Nitrostat 0.4 mg (1/150 Gr) Tabs 25/Bottle] 1 tab SL Q5MP PRN MDD 3 tabs 04/29/19 Pregabalin [Lyrica 100 mg Capsule] 100 mg PO Q12 04/29/19 Spironolactone [Aldactone 25 mg Tablet] 25 mg PO DAILY 04/29/19 Umeclidinium Brm/Vilanterol Tr [Anoro Ellipta 62.5-25 Mcg INH] 1 puff IH DAILY 04/29/19 Apixaban [Eliquis 5 mg Tablet] 5 mg PO BID #60 tablet 05/01/19 Diltiazem HCl [Diltiazem 24Hr ER] 240 mg PO DAILY #30 cap.er.24h 05/01/19 Insulin Aspart [Novolog Flexpen] 50 units SQ DAILY 05/17/19 Allergies/Adverse Reactions: fluoxetine [From Prozac] Allergy (Verified 04/28/19 14:33) Review of Systems Constitutional: PRESENT: fatigue. ABSENT: chills, fever(s), headache(s), weight gain, weight loss Eyes: ABSENT: visual disturbances Ears: ABSENT: hearing changes Cardiovascular: PRESENT: dyspnea on exertion. ABSENT: chest pain, edema, orthropnea, palpitations Respiratory: ABSENT: cough, hemoptysis Gastrointestinal: ABSENT: abdominal pain, constipation, diarrhea, hematemesis, hematochezia, nausea, vomiting Genitourinary: ABSENT: dysuria, hematuria Musculoskeletal: ABSENT: joint swelling Integumentary: ABSENT: rash, wounds Neurological: ABSENT: abnormal gait, abnormal speech, confusion, dizziness, focal weakness, syncope Psychiatric: ABSENT: anxiety, depression, homidical ideation, suicidal ideation Endocrine: ABSENT: cold intolerance, heat intolerance, menstrual abnormalities, polydipsia, polyuria Hematologic/Lymphatic: ABSENT: easy bleeding, easy bruising, lymphadenopathy Physical Exam Vital Signs: Temp Pulse Resp BP Pulse Ox 97.8 F 123 H 24 H 132/85 H 98 05/17/19 01:39 05/17/19 01:39 05/17/19 02:47 05/17/19 01:39 05/17/19 02:47 Intake & Output 05/15/19 05/16/19 05/17/19 06:59 06:59 06:59 Intake Total 50 Balance 50 Weight 166.922 kg General appearance: PRESENT: mild distress, well-developed, well-nourished Head exam: PRESENT: atraumatic, normocephalic Eye exam: PRESENT: conjunctiva pink, EOMI, PERRLA. ABSENT: scleral icterus Ear exam: PRESENT: normal external ear exam Mouth exam: PRESENT: moist, tongue midline Neck exam: PRESENT: full ROM. ABSENT: carotid bruit, JVD, lymphadenopathy, thyromegaly Respiratory exam: PRESENT: decreased breath sounds Cardiovascular exam: PRESENT: RRR. ABSENT: diastolic murmur, rubs, systolic murmur Pulses: PRESENT: normal dorsalis pedis pul, +2 pedal pulses bilateral Vascular exam: PRESENT: normal capillary refill GI/Abdominal exam: PRESENT: normal bowel sounds, soft. ABSENT: distended, guarding, mass, organolmegaly, rebound, tenderness Rectal exam: PRESENT: deferred Extremities exam: PRESENT: pedal edema Musculoskeletal exam: PRESENT: ambulatory Neurological exam: PRESENT: alert, awake, oriented to person, oriented to place, oriented to time, oriented to situation, CN II-XII grossly intact. ABSENT: motor sensory deficit Psychiatric exam: PRESENT: appropriate affect, normal mood. ABSENT: homicidal ideation, suicidal ideation Skin exam: PRESENT: dry, intact, warm. ABSENT: cyanosis, rash Results Laboratory Results: 05/16/19 20:53 05/16/19 20:53 05/16/19 05/16/19 05/16/19 20:20 20:53 20:53 WBC 6.3 RBC 4.22 L Hgb 12.9 L Hct 39.0 MCV 93 MCH 30.6 MCHC 33.1 RDW 13.8 Plt Count 143 L Seg Neutrophils % 71.8 Lymphocytes % 17.9 Monocytes % 6.5 Eosinophils % 2.9 Basophils % 0.9 Absolute Neutrophils 4.5 Absolute Lymphocytes 1.1 Absolute Monocytes 0.4 Absolute Eosinophils 0.2 Absolute Basophils 0.1 Sodium 138.9 Potassium 4.4 Chloride 104 Carbon Dioxide 25 Anion Gap 10 BUN 21 H Creatinine 1.17 Est GFR ( Amer) > 60 Est GFR (Non-Af Amer) > 60 Glucose 167 H Lactic Acid Calcium 9.0 Total Bilirubin 0.6 AST 30 Alkaline Phosphatase 108 Total Protein 7.4 Albumin 4.1 Urine Color YELLOW Urine Appearance CLOUDY Urine pH 5.0 Ur Specific [place] 1.021 Urine Protein 30 H Urine Glucose (UA) NEGATIVE Urine Ketones NEGATIVE Urine Blood MODERATE H Urine Nitrite NEGATIVE Ur Leukocyte Esterase LARGE H Urine WBC (Auto) >182 Urine RBC (Auto) 22 05/16/19 21:46 WBC RBC Hgb Hct MCV MCH MCHC RDW Plt Count Seg Neutrophils % Lymphocytes % Monocytes % Eosinophils % Basophils % Absolute Neutrophils Absolute Lymphocytes Absolute Monocytes Absolute Eosinophils Absolute Basophils Sodium Potassium Chloride Carbon Dioxide Anion Gap BUN Creatinine Est GFR ( Amer) Est GFR (Non-Af Amer) Glucose Lactic Acid 1.1 Calcium Total Bilirubin AST Alkaline Phosphatase Total Protein Albumin Urine Color Urine Appearance Urine pH Ur Specific [place] Urine Protein Urine Glucose (UA) Urine Ketones Urine Blood Urine Nitrite Ur Leukocyte Esterase Urine WBC (Auto) Urine RBC (Auto) 05/16/19 05/16/19 05/17/19 20:53 20:53 00:04 Creatine Kinase 274 H CK-MB (CK-2) 6.65 H Troponin I < 0.012 < 0.012 NT-Pro-B Natriuret Pep 1750 H Impressions: Chest X-Ray 05/16/19 20:13 IMPRESSION: Cardiomegaly, pleural effusions and pulmonary edema. Assessment & Plan - Diagnosis (1) Congestive heart failure (CHF) Qualifiers: Heart failure type: unspecified Heart failure chronicity: acute on chronic Qualified Code(s): I50.9 - Heart failure, unspecified Is this a current diagnosis for this admission?: Yes Plan: Start the patient on IV Lasix consult the cardiology with this pulmonary edema (2) Pleural effusion due to CHF (congestive heart failure) Is this a current diagnosis for this admission?: Yes Plan: Start the patient on IV Lasix patient already feel better (3) Atrial fibrillation with RVR Is this a current diagnosis for this admission?: Yes Plan: Continues to beta-kay and Cardizem and continues to Eliquis (4) CAD S/P percutaneous coronary angioplasty Is this a current diagnosis for this admission?: Yes Plan: We will do the serial cardiac enzymes to rule out any acute coronary syndromes (5) HLD (hyperlipidemia) Qualifiers: Hyperlipidemia type: unspecified Is this a current diagnosis for this admission?: Yes (6) HTN (hypertension) Qualifiers: Qualified Code(s): I10 - Essential (primary) hypertension Is this a current diagnosis for this admission?: Yes (7) Morbid obesity Is this a current diagnosis for this admission?: Yes (8) SAMY on CPAP Is this a current diagnosis for this admission?: Yes Plan: put on a CPAP (9) Type 2 diabetes mellitus with obesity Is this a current diagnosis for this admission?: Yes Plan: Sliding scale's - Time Time Spent: 30 to 50 Minutes Medications reviewed and adjusted accordingly: Yes Anticipated discharge: Home, Other Within: Other - Inpatient Certification Based on my medical assessment, after consideration of the patient's comorbidities, presenting symptoms, or acuity I expect that the services needed warrant INPATIENT care.: Yes I certify that my determination is in accordance with my understanding of Medicare's requirements for reasonable and necessary INPATIENT services [42 CFR 412.3e].: Yes Medical Necessity: Significant Comorbidiites Make Outpatient Treatment Too Risky Post Hospital Care: D/C Bulk Receiver Documentation - Plan Summary Plan Summary: See other MD orders Patients does not have any immediate close family member have some friends will inform friends
[2019-05-17] MEDS ORDERED: FUROSEMIDE INJ/PF 20 MG/2 ML SDV IV SCH (06:00)
[2019-05-17 06:49] LABS: ABSOLUTE EOSINOPHILS # (AUTO) 0.3 10^3/uL (0.0-0.6); ABSOLUTE MONOCYTES (AUTO) 0.4 10^3/uL (0.1-1.4); ABSOLUTE NEUT (AUTO) 3.4 10^3/uL (1.7-8.2); BASOPHILS % (AUTO) 0.3 % (0-2); EOSINOPHILS % (AUTO) 4.2 % (0-6); HEMATOCRIT 38.8 % (37.9-51.0); LYMPHOCYTES % (AUTO) 32.9 % (13-45); MEAN CORPUSCULAR HEMOGLOBIN 30.7 pg (27.0-33.4); MEAN CORPUSCULAR HGB CONC 33.5 g/dL (32.0-36.0); MEAN CORPUSCULAR VOLUME 92 fl (80-97); MONOCYTES % (AUTO) 6.3 % (3-13); PLATELET COUNT 134 10^3/uL (150-450); RED BLOOD COUNT 4.23 10^6/uL (4.35-5.55); RED CELL DISTRIBUTION WIDTH 13.6 % (11.5-14.0); SEGMENTED NEUTROPHILS % (AUTO) 56.3 % (42-78); TOTAL CELLS COUNTED % (AUTO) 100 %; WHITE BLOOD COUNT 6.1 10^3/uL (4.0-10.5)
[2019-05-17 07:08] LABS: ANION GAP 10 (5-19); BLOOD UREA NITROGEN 19 mg/dL (7-20); CALCIUM 9.1 mg/dL (8.4-10.2); CARBON DIOXIDE 26 mmol/L (22-30); CHLORIDE 103 mmol/L (98-107); CREATINE KINASE 270 U/L (55-170); GLUCOSE 148 mg/dL (75-110); POTASSIUM 4.1 mmol/L (3.6-5.0)
[2019-05-17 07:17] LABS: CREATINE KINASE MB 7.42 ng/mL (<4.55); NT PRO BNP 1740 pg/mL (5-900)
[2019-05-17 07:21] LABS: TROPONIN I < 0.012 ng/mL
[2019-05-17] MEDS: INSULIN LISPRO 100 UNIT/ML 3 ML VIAL SUBCUT SCH ×4 (08:31→22:59)
--- NOTE | 2019-05-17 09:27 | EKG REPORT ---
SEVERITY:- ABNORMAL ECG - A FIB WITH CVR. ANTERIOR INFARCT, AGE INDETERMINATE LOW VOLTAGE EKG : Confirmed by: Hipolito Wells MD 17-May-2019 09:27:05
[2019-05-17] MEDS ORDERED: (PENDING PHARMACY ID) (Umeclidinium Brm/Vilanterol Tr [Anoro Ellipta 62.5-25 Mcg Inh] 1 PU IH SCH (10:00)
[2019-05-17] MEDS ORDERED: DILTIAZEM HCL 240 MG CAPSULE.CR PO SCH (10:00)
[2019-05-17] MEDS ORDERED: LOSARTAN POTASSIUM 50 MG TABLET PO SCH (10:00)
[2019-05-17] MEDS ORDERED: CEFTRIAXONE 1 GM/D5W RTU 1 GM/50 ML RTUPB IV SCH (10:00)
[2019-05-17] MEDS ORDERED: METOPROLOL TARTRATE 25 MG TABLET PO SCH (10:00)
[2019-05-17] MEDS ORDERED: ENOXAPARIN SODIUM INJ 40 MG/0.4 ML DISP.SYRIN SUBCUT SCH (10:00)
[2019-05-17] MEDS: SPIRONOLACTONE 25 MG TABLET PO SCH (10:22)
[2019-05-17] MEDS: ASPIRIN 81 MG TABLET, ENT COATED PO SCH (10:23)
[2019-05-17] MEDS: ALLOPURINOL 300 MG TABLET PO SCH (10:23)
[2019-05-17] MEDS: COLCHICINE 0.6 MG TABLET PO SCH ×2 (10:23→21:24)
[2019-05-17] MEDS: PREGABALIN 100 MG CAPSULE PO SCH ×2 (10:23→21:24)
[2019-05-17] MEDS: APIXABAN 5 MG TABLET PO SCH ×2 (10:23→17:38)
[2019-05-17] MEDS: CEFTRIAXONE SODIUM 1,000 MG in DEXTROSE 5%-WATER 50 ML IV SCH (12:35)
[2019-05-17] MEDS ORDERED: INSULIN DETEMIR 60 UNIT SQ SCH (15:00)
[2019-05-17] MEDS ORDERED: INSULIN LISPRO 100 UNIT/ML 3 ML VIAL SUBCUT SCH (15:00)
[2019-05-17] MEDS: INSULIN GLARGINE,HUM.REC.ANLOG 1,000 UNIT/10 ML VIAL SUBCUT SCH (15:50)
[2019-05-17] MEDS: FUROSEMIDE 20 MG TABLET PO SCH (17:38)
--- NOTE | 2019-05-17 20:27 | PDOC CONSULTATION ---
Consultation-Blank Consultation: CARDIOLOGY CONSULTATION by Dr. clark S1 on 05/17/2019. Patient seen at 9:30 AM on . REASON FOR CONSULTATION: Congestive heart failure. CONSULT REQUESTING PHYSICIAN: Dr. Manju Hayes. HISTORY PRESENT ILLNESS: Patient is a morbidly obese, 54-year-old male with known history of hypertension, congestive heart failure, sleep apnea on BiPAP, coronary artery disease and history of myocardial infarction in the past, and diabetes mellitus type 2 insulin-dependent, admitted with 2 weeks history of increasing shortness of breath at rest shortness of breath. PND and orthopnea. He also has been having increasing leg edema. He came to the emergency room was found to be in congestive heart failure. He states he has been compliant with medication although he states that he did not have spironolactone to take until recently. The patient was admitted in April 2019 with heart failure, and atrial fibrillation and was placed on Eliquis and CARMEN inhibitor. He was seen in the office by me and I ordered records from [facility] and also the patient to get an echocardiogram, but the patient missed his appointment, and I did not get his cardiac catheterization report. The patient since his admission to the ER and to the floor he is feeling much better after he received IV Lasix. His leg edema is also improved. But he continues to have orthopnea. There is no chest pain or discomfort. There is no palpitations. Past Medical History Cardiac Medical History: Reports: Atrial Fibrillation, Congestive Heart Failure, Coronary Artery Disease, Myocardial Infarction - x1 2008 or 2009, Hyperlipidema, Hypertension Pulmonary Medical History: Reports: Chronic Obstructive Pulmonary Disease (COPD), Sleep Apnea, on CPAP. Endocrine Medical History: Reports: Diabetes Mellitus Type 2 - insulin- dependent. No thyroid disease. GI Medical History: Reports: Gastroesophageal Reflux Disease. No history of GI bleed. Musculoskeltal Medical History: Reports: Arthritis Psychiatric Medical History: Reports: Depression. Genitourinary: Denies history of chronic kidney disease. REGIONAL COORDINATOR: No history of TIA CVA. Past Surgical History Past Surgical History: Reports: Cardiac Catheterization - w/ stent x1 (2008 or 2009) Social History Information Source: Patient Smoking Status: Never Smoker Frequency of Alcohol Use: Occasional Hx Recreational Drug Use: No Drugs: None Hx Prescription Drug Abuse: No - Advance Directive Resuscitation Status: Full Code the patient states his friend "Bill" is a surrogate healthcare decision maker. Family History Family History: Positive for coronary artery disease, diabetes mellitus, and hypertension. Medication/Allergy Home Medications: Allopurinol [Zyloprim 300 mg Tablet] 300 mg PO DAILY 04/29/19 Aspirin [Ecotrin 81 mg EC Tablet] 81 mg PO DAILY 04/29/19 Colchicine [Colchicine 0.6 mg Tablet] 0.6 mg PO Q12 04/29/19 Dulaglutide [Trulicity] 1.5 mg SQ MO@1000 04/29/19 Insulin Detemir [Levemir] 60 unit SQ DAILY@1500 04/29/19 Irbesartan 150 mg PO DAILY 04/29/19 Levalbuterol Tartrate [Levalbuterol Tartrate Hfa] 1 puff IH Q6HP PRN 04/29/19 Metoprolol Tartrate [Lopressor 25 mg Tablet] 25 mg PO Q12 04/29/19 Nitroglycerin [Nitrostat 0.4 mg (1/150 Gr) Tabs 25/Bottle] 1 tab SL Q5MP PRN MDD 3 tabs 04/29/19 Pregabalin [Lyrica 100 mg Capsule] 100 mg PO Q12 04/29/19 Spironolactone [Aldactone 25 mg Tablet] 25 mg PO DAILY 04/29/19 Umeclidinium Brm/Vilanterol Tr [Anoro Ellipta 62.5-25 Mcg INH] 1 puff IH DAILY 04/29/19 Apixaban [Eliquis 5 mg Tablet] 5 mg PO BID #60 tablet 05/01/19 Diltiazem HCl [Diltiazem 24Hr ER] 240 mg PO DAILY #30 cap.er.24h 05/01/19 Insulin Aspart [Novolog Flexpen] 50 units SQ DAILY 05/17/19 Allergies/Adverse Reactions: fluoxetine [From Prozac] Review of Systems Constitutional: PRESENT: fatigue. ABSENT: chills, fever(s), headache(s), weight gain, weight loss Eyes: ABSENT: visual disturbances Ears: ABSENT: hearing changes Cardiovascular: PRESENT: dyspnea on exertion. ABSENT: chest pain, edema, orthropnea, palpitations Respiratory: ABSENT: cough, hemoptysis Gastrointestinal: ABSENT: abdominal pain, constipation, diarrhea, hematemesis, hematochezia, nausea, vomiting Genitourinary: ABSENT: dysuria, hematuria Musculoskeletal: ABSENT: joint swelling Integumentary: ABSENT: rash, wounds Neurological: ABSENT: abnormal gait, abnormal speech, confusion, dizziness, focal weakness, syncope Psychiatric: ABSENT: anxiety, depression, homidical ideation, suicidal ideation Endocrine: ABSENT: cold intolerance, heat intolerance, menstrual abnormalities, polydipsia, polyuria Hematologic/Lymphatic: ABSENT: easy bleeding, easy bruising, lymphadenopathy. PHYSICAL EXAMINATION: The patient is morbidly obese. In no acute distress he is well-groomed. 05/17/19 08:09 Temperature 97.4 F Temperature Oral Source Pulse Rate 115 H Respiratory 10 L Rate Blood Pressure 124/85 Blood Pressure 98 Mean BP Location Right Arm BP Position Sitting O2 Sat by Pulse 97 Oximetry Oxygen Delivery Bipap Method Percent of 40 Oxygen HEAD: Is atraumatic normocephalic. EYES: Equal round regular reactive to light and accommodation. Extraocular movements are normal. There is no conjunctival pallor. There is no scleral icterus. EARS: Tympanic membranes are intact. External auditory canals are clear.. NOSE: There is no deviated nasal septum. There is no inflammation nasal mucous membrane MOUTH: Mucous membranes of the mouth are moist. There is no ulcers. THROAT: There is no redness of the oropharynx. There is no exudates. NECK: Is supple. There is no JVD. Carotids equal there is no bruit. There is no lymphadenopathy there is no goiter. There is no accessory muscle respiration use. Trachea central there is no goiter. LUNGS: Shows diminished air entry prolonged expiration with no rhonchi or wheezing. There is few bibasilar rales of CHF. Heart S1-S2 is heard. S1 is of variable intensity. There is no S3 gallop. There is no S4 gallop. There is systolic murmur left sternal border and the apex there is no rub. ABDOMEN: Is morbidly obese. There is no hepatosplenomegaly. Bowel sounds are well heard. EXTREMITIES: Femorals are very deep. Femorals are diminished. There is no femoral bruits. Leg pulses are difficult to palpate. There is 1+ pedal edema bilaterally. There is no DVT or cellulitis. There is no calf tenderness. There is no cyanosis or clubbing. REGIONAL COORDINATOR: The patient is conscious awake alert oriented x3 with no focal deficits. PSYCHIATRIC: The patient judgment insight are intact his affect is normal. He does not appear to be depressed at present. Current Medications Generic Name Dose Route Start Last Admin Trade Name Freq PRN Reason Stop Dose Admin Acetaminophen 650 mg 05/16/19 22:56 Tylenol 325 Mg Tablet PO 06/15/19 22:55 Q4HP PRN FOR PAIN OR TEMP Albuterol/Ipratropium 3 ml 05/16/19 22:56 05/17/19 08:30 Duoneb 3 Ml Ampul NEB 06/15/19 22:55 3 ml RTQ6HP PRN Administration SHORTNESS OF BREATH Allopurinol 300 mg 05/17/19 10:00 05/17/19 10:23 Zyloprim 300 Mg Tablet PO 06/16/19 09:59 300 mg DAILY ALEKSANDRA Administration Apixaban 5 mg 05/17/19 10:00 05/17/19 17:38 Eliquis 5 Mg Tablet PO 06/16/19 09:59 5 mg BID ALEKSANDRA Administration Aspirin 81 mg 05/17/19 10:00 05/17/19 10:23 Ecotrin 81 Mg Ec Tablet PO 06/16/19 09:59 81 mg DAILY ALEKSANDRA Administration Colchicine 0.6 mg 05/17/19 10:00 05/17/19 10:23 Colcrys 0.6 Mg Tablet PO 06/16/19 09:59 0.6 mg Q12 ALEKSANDRA Administration Dextrose 12.5 gm 05/16/19 23:05 Dextrose Inj 50% Syringe (25 Gm/50 Ml) IV 06/15/19 23:04 PRN PRN FOR BG 50-69 IN ALERT PATIENT Protocol Dextrose 25 gm 05/16/19 23:05 Dextrose Inj 50% Syringe (25 Gm/50 Ml) IV 06/15/19 23:04 PRN PRN PER PROTOCOL Protocol Diltiazem HCl 240 mg 05/17/19 10:00 05/17/19 10:23 Cardizem Cd 240 Mg Capsule.Cr PO 06/16/19 09:59 240 mg DAILY ALEKSANDRA Administration Diltiazem HCl 240 mg 05/17/19 02:47 Cardizem Cd 120 Mg Capsule PO 06/16/19 02:46 ONCEP PRN INEFFECTIVE HR REDUCTION Furosemide 20 mg 05/17/19 18:00 05/17/19 17:38 Lasix 20 Mg Tablet PO 06/16/19 17:59 20 mg BID ALEKSANDRA Administration Glucagon 1 mg 05/16/19 23:05 Glucagen Inj 1 Mg Vial IM 06/15/19 23:04 PRN PRN Evaluate for BG < 70 Protocol Glucose 15 gm 05/16/19 23:05 Glutose 40% Gel 15 Gm Tube PO 06/15/19 23:04 PRN PRN FOR BG 50-69 IN ALERT PATIENT Protocol Glucose 30 gm 05/16/19 23:05 Glutose 40% Gel 15 Gm Tube PO 06/15/19 23:04 PRN PRN FOR BG < 50 IN ALERT PATIENT Protocol Ceftriaxone Sodium 1,000 mg/ 50 mls @ 100 mls/hr 05/17/19 12:00 05/17/19 13:05 Dextrose IV 05/24/19 11:59 Infused DAILY ALEKSANDRA Infusion Insulin Glargine 60 unit 05/17/19 15:00 05/17/19 15:50 Lantus Insulin 100 Unit/1 Ml 10 Ml SUBCUT 06/16/19 14:59 60 unit DAILY@1500 ALEKSANDRA Administration Insulin Human Lispro 0 - 12 unit 05/17/19 08:00 05/17/19 19:36 Humalog Insulin 100 Unit/1 Ml 3 Ml Vial SUBCUT 06/16/19 07:59 Not Given ACHS [facility] Protocol Losartan Potassium 50 mg 05/17/19 10:00 05/17/19 10:23 Cozaar 50 Mg Tablet PO 06/16/19 09:59 50 mg DAILY ALEKSANDRA Administration Metoprolol Tartrate 25 mg 05/17/19 10:00 05/17/19 10:22 Lopressor 25 Mg Tablet PO 06/16/19 09:59 25 mg Q12 ALEKSANDRA Administration Nitroglycerin 1 tab 05/17/19 02:18 Nitrostat 0.4 Mg (1/150 Gr) Tabs 25/Bottle SL 06/16/19 02:17 Q5MP PRN chest pain Patient Own Medication 1.5 mg 05/18/19 10:00 Dulaglutide [Trulicity] SQ 06/17/19 09:59 MO@1000 [facility] Patient Own Medication 1 puff 05/17/19 10:00 Umeclidinium Brm/Vilanterol Tr [Anoro Ellipta 62.5-25 Mcg Inh] IH 06/16/19 09:59 DAILY ALEKSANDRA Pregabalin 100 mg 05/17/19 10:00 05/17/19 10:23 Lyrica 100 Mg Capsule PO 06/16/19 09:59 100 mg Q12 ALEKSANRDA Administration Spironolactone 25 mg 05/17/19 10:00 05/17/19 10:22 Aldactone 25 Mg Tablet PO 06/16/19 09:59 25 mg DAILY ALEKSANDRA Administration Discontinued Medications Generic Name Dose Route Start Last Admin Trade Name [place] PRN Reason Stop Dose Admin Aspirin 324 mg 05/16/19 20:13 05/16/19 20:38 Aspirin 81 Mg Chewable Tablet PO 05/16/19 20:14 Not Given NOW ONE Enoxaparin Sodium 40 mg 05/17/19 10:00 Lovenox Inj 40 Mg/0.4 Ml Disp.Syrin SUBCUT 06/16/19 09:59 DAILY ALEKSANDRA Furosemide 40 mg 05/16/19 21:30 05/16/19 21:56 Lasix Inj/Pf 40 Mg/4 Ml Sdv IV 05/16/19 21:31 40 mg NOW ONE Administration Furosemide 20 mg 05/16/19 23:00 05/16/19 23:56 Lasix Inj/Pf 40 Mg/4 Ml Sdv IV 05/16/19 23:01 20 mg NOW ONE Administration Furosemide 20 mg 05/17/19 06:00 05/17/19 05:33 Lasix Inj/Pf 20 Mg/2 Ml Sdv IV 06/16/19 05:59 20 mg Q8 ALEKSANDRA Administration Ceftriaxone Sodium/Dextrose 1 gm in 50 mls @ 100 mls/hr 05/16/19 21:31 05/16/19 23:47 Rocephin Rtu 1 Gm/D5w 50 Ml Premix IV 05/16/19 22:00 Infused NOW ONE Infusion Ceftriaxone Sodium/Dextrose Confirm 05/16/19 22:04 05/16/19 22:19 Rocephin Rtu 1 Gm/D5w 50 Ml Premix Administered 05/16/19 22:05 Not Given Dose 1 gm in 50 mls @ ud IV .STK-MED ONE Ceftriaxone Sodium/Dextrose 1 gm in 50 mls @ 100 mls/hr 05/17/19 10:00 Rocephin Rtu 1 Gm/D5w 50 Ml Premix IV 05/24/19 09:59 DAILY ALEKSANDRA Metoprolol Tartrate 50 mg 05/17/19 03:00 05/17/19 03:09 Lopressor 50 Mg Tablet PO 05/17/19 03:01 50 mg NOW ONE Administration Nitroglycerin 1 tab 05/16/19 22:45 05/16/19 23:55 Nitrostat 0.4 Mg (1/150 Gr) Tabs 25/Bottle SL 05/16/19 22:46 Not Given NOW ONE Labs- Entire Visit 05/16/19 05/16/19 05/16/19 20:20 20:53 20:53 WBC 6.3 RBC 4.22 L Hgb 12.9 L Hct 39.0 MCV 93 MCH 30.6 MCHC 33.1 RDW 13.8 Plt Count 143 L Seg Neutrophils % 71.8 Lymphocytes % 17.9 Monocytes % 6.5 Eosinophils % 2.9 Basophils % 0.9 Absolute Neutrophils 4.5 Absolute Lymphocytes 1.1 Absolute Monocytes 0.4 Absolute Eosinophils 0.2 Absolute Basophils 0.1 PT 16.4 H INR 1.32 Sodium Potassium Chloride Carbon Dioxide Anion Gap BUN Creatinine Est GFR ( Amer) Est GFR (Non-Af Amer) Glucose POC Glucose Lactic Acid Calcium Magnesium Total Bilirubin Direct Bilirubin Neonat Total Bilirubin Neonat Direct Bilirubin Neonat Indirect Bili AST ALT Alkaline Phosphatase Creatine Kinase CK-MB (CK-2) Troponin I NT-Pro-B Natriuret Pep Total Protein Albumin Urine Color YELLOW Urine Appearance CLOUDY Urine pH 5.0 Ur Specific [place] 1.021 Urine Protein 30 H Urine Glucose (UA) NEGATIVE Urine Ketones NEGATIVE Urine Blood MODERATE H Urine Nitrite NEGATIVE Urine Bilirubin NEGATIVE Urine Urobilinogen NEGATIVE Ur Leukocyte Esterase LARGE H Urine WBC (Auto) >182 Urine RBC (Auto) 22 Urine WBC Clumps FEW Squamous Epi Cells Auto 1 Urine Mucus (Auto) RARE Urine Ascorbic Acid NEGATIVE 05/16/19 05/16/19 05/16/19 20:53 20:53 21:46 WBC RBC Hgb Hct MCV MCH MCHC RDW Plt Count Seg Neutrophils % Lymphocytes % Monocytes % Eosinophils % Basophils % Absolute Neutrophils Absolute Lymphocytes Absolute Monocytes Absolute Eosinophils Absolute Basophils PT INR Sodium 138.9 Potassium 4.4 Chloride 104 Carbon Dioxide 25 Anion Gap 10 BUN 21 H Creatinine 1.17 Est GFR ( Amer) > 60 Est GFR (Non-Af Amer) > 60 Glucose 167 H POC Glucose Lactic Acid 1.1 Calcium 9.0 Magnesium Total Bilirubin 0.6 Direct Bilirubin 0.3 Neonat Total Bilirubin Not Reportable Neonat Direct Bilirubin Not Reportable Neonat Indirect Bili Not Reportable AST 30 ALT 24 Alkaline Phosphatase 108 Creatine Kinase 274 H CK-MB (CK-2) 6.65 H Troponin I < 0.012 NT-Pro-B Natriuret Pep 1750 H Total Protein 7.4 Albumin 4.1 Urine Color Urine Appearance Urine pH Ur Specific [place] Urine Protein Urine Glucose (UA) Urine Ketones Urine Blood Urine Nitrite Urine Bilirubin Urine Urobilinogen Ur Leukocyte Esterase Urine WBC (Auto) Urine RBC (Auto) Urine WBC Clumps Squamous Epi Cells Auto Urine Mucus (Auto) Urine Ascorbic Acid 05/17/19 05/17/19 05/17/19 00:04 06:36 06:36 WBC 6.1 RBC 4.23 L Hgb 13.0 L Hct 38.8 MCV 92 MCH 30.7 MCHC 33.5 RDW 13.6 Plt Count 134 L Seg Neutrophils % 56.3 Lymphocytes % 32.9 Monocytes % 6.3 Eosinophils % 4.2 Basophils % 0.3 Absolute Neutrophils 3.4 Absolute Lymphocytes 2.0 Absolute Monocytes 0.4 Absolute Eosinophils 0.3 Absolute Basophils 0.0 PT INR Sodium 139.3 Potassium 4.1 Chloride 103 Carbon Dioxide 26 Anion Gap 10 BUN 19 Creatinine 1.23 Est GFR ( Amer) > 60 Est GFR (Non-Af Amer) > 60 Glucose 148 H POC Glucose Lactic Acid Calcium 9.1 Magnesium 2.0 Total Bilirubin Direct Bilirubin Neonat Total Bilirubin Neonat Direct Bilirubin Neonat Indirect Bili AST ALT Alkaline Phosphatase Creatine Kinase 270 H CK-MB (CK-2) Troponin I < 0.012 NT-Pro-B Natriuret Pep Total Protein Albumin Urine Color Urine Appearance Urine pH Ur Specific [place] Urine Protein Urine Glucose (UA) Urine Ketones Urine Blood Urine Nitrite Urine Bilirubin Urine Urobilinogen Ur Leukocyte Esterase Urine WBC (Auto) Urine RBC (Auto) Urine WBC Clumps Squamous Epi Cells Auto Urine Mucus (Auto) Urine Ascorbic Acid 05/17/19 05/17/19 05/17/19 06:36 08:12 11:43 WBC RBC Hgb Hct MCV MCH MCHC RDW Plt Count Seg Neutrophils % Lymphocytes % Monocytes % Eosinophils % Basophils % Absolute Neutrophils Absolute Lymphocytes Absolute Monocytes Absolute Eosinophils Absolute Basophils PT INR Sodium Potassium Chloride Carbon Dioxide Anion Gap BUN Creatinine Est GFR ( Amer) Est GFR (Non-Af Amer) Glucose POC Glucose 177 H 136 H Lactic Acid Calcium Magnesium Total Bilirubin Direct Bilirubin Neonat Total Bilirubin Neonat Direct Bilirubin Neonat Indirect Bili AST ALT Alkaline Phosphatase Creatine Kinase CK-MB (CK-2) 7.42 H Troponin I < 0.012 NT-Pro-B Natriuret Pep 1740 H Total Protein Albumin Urine Color Urine Appearance Urine pH Ur Specific [place] Urine Protein Urine Glucose (UA) Urine Ketones Urine Blood Urine Nitrite Urine Bilirubin Urine Urobilinogen Ur Leukocyte Esterase Urine WBC (Auto) Urine RBC (Auto) Urine WBC Clumps Squamous Epi Cells Auto Urine Mucus (Auto) Urine Ascorbic Acid 05/17/19 15:34 WBC RBC Hgb Hct MCV MCH MCHC RDW Plt Count Seg Neutrophils % Lymphocytes % Monocytes % Eosinophils % Basophils % Absolute Neutrophils Absolute Lymphocytes Absolute Monocytes Absolute Eosinophils Absolute Basophils PT INR Sodium Potassium Chloride Carbon Dioxide Anion Gap BUN Creatinine Est GFR ( Amer) Est GFR (Non-Af Amer) Glucose POC Glucose 157 H Lactic Acid Calcium Magnesium Total Bilirubin Direct Bilirubin Neonat Total Bilirubin Neonat Direct Bilirubin Neonat Indirect Bili AST ALT Alkaline Phosphatase Creatine Kinase CK-MB (CK-2) Troponin I NT-Pro-B Natriuret Pep Total Protein Albumin Urine Color Urine Appearance Urine pH Ur Specific [place] Urine Protein Urine Glucose (UA) Urine Ketones Urine Blood Urine Nitrite Urine Bilirubin Urine Urobilinogen Ur Leukocyte Esterase Urine WBC (Auto) Urine RBC (Auto) Urine WBC Clumps Squamous Epi Cells Auto Urine Mucus (Auto) Urine Ascorbic Acid Chest X-Ray 05/16/19 20:13 IMPRESSION: Cardiomegaly, pleural effusions and pulmonary edema. EKG: Shows atrial fibrillation with a fast ventricular response. Low voltage throughout. Probable old anteroseptal KS. IMPRESSION/RECOMMENDATION: 1. 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 Continue diuretics. Continue CARMEN inhibitors and since I suspect that there is left ventricle systolic heart failure and presence of coronary artery disease, would recommend stopping the patient's Cardizem and place the patient on a beta-kay.. 2. Atrial Fibrillation: The patient is currently on Cardizem. Would recommend discontinue the patient's Cardizem place the patient on a beta-kay. We will start the patient on beta-kay 50 mg p.o. of Toprol-XL p.o. every 12 hours. Continue Eliquis. 3. Hypertension: Blood pressure well controlled. 4. Diabetes mellitus: Continue his antidiabetic medication and Accu-Cheks. 5. Chronic obstructive pulmonary disease: At present stable at baseline with no evidence of acute exacerbation. 6. Sleep apnea: Continue CPAP/BiPAP. 7. Coronary artery disease: At present no anginal symptoms continue current medications we will get the patient's records from [facility]. 8. Old myocardial infarction: In view of this will recommend stopping the patient's Cardizem and place the patient on beta-kay. 9. Morbid obesity: Later would recommend the patient have a weight loss program. 10. Suspect cardiomyopathy. Will check an echo. Medications reviewed medication adjusted management plan discussed with Dr. Hayes. Medical decision making is of high complexity. 60 minutes spent on this patient, with more than 50% time spent in direct patient care. Will follow.
[2019-05-18] MEDS ORDERED: METOPROLOL SUCCINATE 50 MG TAB.SR.24H PO ONE (01:30)
[2019-05-18 06:35] LABS: ABSOLUTE BASOPHILS # (AUTO) 0.1 10^3/uL (0.0-0.2); ABSOLUTE EOSINOPHILS # (AUTO) 0.3 10^3/uL (0.0-0.6); ABSOLUTE LYMPHOCYTES (AUTO) 2.1 10^3/uL (0.5-4.7); ABSOLUTE MONOCYTES (AUTO) 0.4 10^3/uL (0.1-1.4); ABSOLUTE NEUT (AUTO) 2.7 10^3/uL (1.7-8.2); BASOPHILS % (AUTO) 1.3 % (0-2); HEMATOCRIT 39.3 % (37.9-51.0); HEMOGLOBIN 13.1 g/dL (13.5-17.0); MEAN CORPUSCULAR HEMOGLOBIN 30.6 pg (27.0-33.4); MEAN CORPUSCULAR HGB CONC 33.5 g/dL (32.0-36.0); MEAN CORPUSCULAR VOLUME 92 fl (80-97); MONOCYTES % (AUTO) 7.5 % (3-13); PLATELET COUNT 144 10^3/uL (150-450); RED BLOOD COUNT 4.29 10^6/uL (4.35-5.55); RED CELL DISTRIBUTION WIDTH 13.9 % (11.5-14.0); SEGMENTED NEUTROPHILS % (AUTO) 48.2 % (42-78); TOTAL CELLS COUNTED % (AUTO) 100 %; WHITE BLOOD COUNT 5.6 10^3/uL (4.0-10.5)
[2019-05-18 07:02] LABS: ANION GAP 9 (5-19); BLOOD UREA NITROGEN 22 mg/dL (7-20); CALCIUM 9.1 mg/dL (8.4-10.2); CARBON DIOXIDE 28 mmol/L (22-30); CHLORIDE 103 mmol/L (98-107); GLUCOSE 116 mg/dL (75-110); POTASSIUM 4.3 mmol/L (3.6-5.0)
[2019-05-18] MEDS: INSULIN LISPRO 100 UNIT/ML 3 ML VIAL SUBCUT SCH ×3 (07:56→16:08)
[2019-05-18] MEDS: CEFTRIAXONE SODIUM 1,000 MG in DEXTROSE 5%-WATER 50 ML IV SCH (09:33)
[2019-05-18] MEDS: ALLOPURINOL 300 MG TABLET PO SCH (09:34)
[2019-05-18] MEDS: PREGABALIN 100 MG CAPSULE PO SCH (09:34)
[2019-05-18] MEDS: ASPIRIN 81 MG TABLET, ENT COATED PO SCH (09:34)
[2019-05-18] MEDS: APIXABAN 5 MG TABLET PO SCH ×2 (09:34→17:03)
[2019-05-18] MEDS: SPIRONOLACTONE 25 MG TABLET PO SCH (09:34)
[2019-05-18] MEDS: FUROSEMIDE 20 MG TABLET PO SCH ×2 (09:34→17:03)
[2019-05-18] MEDS: COLCHICINE 0.6 MG TABLET PO SCH (09:34)
[2019-05-18] MEDS ORDERED: LOSARTAN POTASSIUM 50 MG TABLET PO SCH (10:00)
[2019-05-18] MEDS ORDERED: (PENDING PHARMACY ID) (Dulaglutide [Trulicity] 1.5 MG) SQ SCH (10:00)
[2019-05-18] MEDS ORDERED: METOPROLOL SUCCINATE 50 MG TAB.SR.24H PO SCH (10:00)
[2019-05-18] MEDS: INSULIN GLARGINE,HUM.REC.ANLOG 1,000 UNIT/10 ML VIAL SUBCUT SCH (15:59)
[2019-05-18] MEDS ORDERED: INSULIN GLARGINE,HUM.REC.ANLOG 1,000 UNIT/10 ML VIAL (PYX) SUBCUT ONE (16:30)
[2019-05-18 18:20] VITALS: BP 132/85
--- NOTE | 2019-05-18 18:20 | PDOC DISCHARGE SUMMARY ---
General - Admit/Disc Date/PCP Admission Date/Primary Care Provider: 05/16/19 23:17 KIRK GILLESA Discharge Date: 05/18/19 - Additional Information Resuscitation Status: Full Code Discharge Diet: Cardiac, Diabetic Discharge Activity: Activity As Tolerated, Balance Activity w/Rest, Weigh Daily Prescriptions: Furosemide [Lasix 20 mg Tablet] 20 mg PO BID #60 tablet Metoprolol Succinate [Toprol Xl 50 mg Tab.sr] 50 mg PO Q12 #60 tab.sr.24h Home Medications: Allopurinol [Zyloprim 300 mg Tablet] 300 mg PO DAILY 04/29/19 Colchicine [Colchicine 0.6 mg Tablet] 0.6 mg PO Q12 04/29/19 Dulaglutide [Trulicity] 1.5 mg SQ MO@1000 04/29/19 Insulin Detemir [Levemir] 60 unit SQ DAILY@1500 04/29/19 Irbesartan 150 mg PO DAILY 04/29/19 Levalbuterol Tartrate [Levalbuterol Tartrate Hfa] 1 puff IH Q6HP PRN 04/29/19 Nitroglycerin [Nitrostat 0.4 mg (1/150 Gr) Tabs 25/Bottle] 1 tab SL Q5MP PRN MDD 3 tabs 04/29/19 Pregabalin [Lyrica 100 mg Capsule] 100 mg PO Q12 04/29/19 Spironolactone [Aldactone 25 mg Tablet] 25 mg PO DAILY 04/29/19 Umeclidinium Brm/Vilanterol Tr [Anoro Ellipta 62.5-25 Mcg INH] 1 puff IH DAILY 04/29/19 Apixaban [Eliquis 5 mg Tablet] 5 mg PO BID #60 tablet 05/01/19 Diltiazem HCl [Diltiazem 24Hr ER (Cd)] 240 mg PO DAILY #30 cap.er.24h 05/01/19 Insulin Aspart [Novolog Flexpen] 50 units SQ DAILY@1500 05/17/19 Furosemide [Lasix 20 mg Tablet] 20 mg PO BID #60 tablet 05/18/19 Metoprolol Succinate [Toprol Xl 50 mg Tab.sr] 50 mg PO Q12 #60 tab.sr.24h 05/18/19 History of Present Illness Patient complains of: Shortness of breath History of Present Illness: DAVID PHILLIPS is a 54 year old male This is a 54-year-old male patient of Dr. Dennis came to the emergency department with a respiratory distressed Patient was recently diagnosed with atrial fibrillation with rapid ventricular rate on April 2019 he was admitting in the ICU and discharged on Patient was placed on Eliquis Cardizem and Spironolactone upon discharge Patient stated he was unable to get his Spironolactone filled but recently got it filled and started taking on Saturday. He take 1 dose Saturday and 1 dose Saturday at patient is status continues to be generalized respiratory distress since his discharge it got more worse on exertion's when he tried to talk a long sentence. Patient's denied any chest pain Patient was put on 2 L nasal cannula in the ER and patient's overall feels better and patient's was put on BiPAP Chest x-ray shows left pleural effusion and pulmonary edema and giving IV Lasix When I saw the patient on the floor in IMCU patient is feeling much better Is denied any chest pain to than any shortness of the breath Patient also having some positive urine giving Rocephin IV in the ER Hospital Course Hospital Course: Patient was admitted as case of acute congestive heart failure with chronic atr ial fibrillation with rapid ventricular rate. He was managed with IV furosemide and improvement in his presenting symptoms. He was seen in consultation by Dr. Guzman, pass worker, with adjustment of his medication and advised to maintain head of his bed at above 30 degree due to his CHF, Obstructive Sleep Apnea, and morbid obesity with hypoventilation syndrome. Also, there is continue need for change in body position due to his morbidities and excess weight. His urine culture id not show any clinically significant infectious process. He had two doses of IV Rocephin while on admission. He requested to be discharged home today. He will follow up in the office as instructed upon discharge. Physical Exam Vital Signs: Temp Pulse Resp BP Pulse Ox 98.1 F 63 18 101/65 97 05/18/19 15:13 05/18/19 15:13 05/18/19 15:13 05/18/19 15:13 05/18/19 15:13 Intake & Output 05/17/19 05/18/19 05/19/19 06:59 06:59 06:59 Intake Total 170 1364 752 Output Total 1550 1600 300 Balance -1380 -236 452 Weight 189.2 kg General appearance: PRESENT: morbidly obese Head exam: PRESENT: atraumatic, normocephalic Eye exam: PRESENT: conjunctiva pink. ABSENT: scleral icterus Ear exam: PRESENT: normal external ear exam Mouth exam: PRESENT: moist Teeth exam: PRESENT: poor dentation Respiratory exam: PRESENT: clear to auscultation laura, decreased breath sounds - at lung bases Cardiovascular exam: PRESENT: irregular rhythm, +S1, +S2. ABSENT: diastolic murmur, systolic murmur Vascular exam: ABSENT: pallor GI/Abdominal exam: PRESENT: normal bowel sounds, soft. ABSENT: distended, guarding, mass, organolmegaly, rebound, tenderness Extremities exam: ABSENT: pedal edema Musculoskeletal exam: PRESENT: ambulatory Neurological exam: PRESENT: alert, awake, oriented to person, oriented to place, oriented to time, oriented to situation, CN II-XII grossly intact. ABSENT: motor sensory deficit Psychiatric exam: PRESENT: appropriate affect, normal mood. ABSENT: homicidal ideation, suicidal ideation Skin exam: PRESENT: dry, warm Results Laboratory Results: 05/18/19 06:08 05/18/19 06:08 05/18/19 05/18/19 06:08 06:08 WBC 5.6 RBC 4.29 L Hgb 13.1 L Hct 39.3 MCV 92 MCH 30.6 MCHC 33.5 RDW 13.9 Plt Count 144 L Seg Neutrophils % 48.2 Lymphocytes % 37.0 Monocytes % 7.5 Eosinophils % 6.0 Basophils % 1.3 Absolute Neutrophils 2.7 Absolute Lymphocytes 2.1 Absolute Monocytes 0.4 Absolute Eosinophils 0.3 Absolute Basophils 0.1 Sodium 140.3 Potassium 4.3 Chloride 103 Carbon Dioxide 28 Anion Gap 9 BUN 22 H Creatinine 1.32 H Est GFR ( Amer) > 60 Est GFR (Non-Af Amer) 56 L Glucose 116 H Calcium 9.1 05/16/19 20:20 Clean Catch Midstream Urine Culture - Final Mixed Urogenital Petra 05/16/19 05/16/19 05/17/19 20:53 20:53 00:04 Creatine Kinase 274 H CK-MB (CK-2) 6.65 H Troponin I < 0.012 < 0.012 NT-Pro-B Natriuret Pep 1750 H 05/17/19 05/17/19 06:36 06:36 Creatine Kinase 270 H CK-MB (CK-2) 7.42 H Troponin I < 0.012 NT-Pro-B Natriuret Pep 1740 H Impressions: Chest X-Ray 05/16/19 20:13 IMPRESSION: Cardiomegaly, pleural effusions and pulmonary edema. Qualifiers - * PATIENT BEING DISCHARGED WITH ANY OF THE FOLLOWING DIAGNOSIS: No Acute Heart Failure - Is this a Heart Failure Patient?: Yes Documentation of LVEF assessment?: Planned for after discharge LVEF < 40%?: No- if no continue to question #3 a) Discharged on ACEI?: N/A Discharged on ARB b) Discharges on ARB?: Yes d) Discharged on evidence-based Beta kay(carvedilol, sustained release metoprolol succinate, or bisoprolol)?: Yes e) For LVEF <35%, discharged on Aldosterone antagonist?: Yes 3. Anticoagulant therapy for permanect/persistent/paraoxysmal Afib or Aflutter: Yes Follow-up Appointment scheduled within 7 days?: Yes Plan Discharge Plan: D/C home today. Follow up in the office as instructed upon discharge.
--- NOTE | 2019-05-18 19:08 | Progress Note ---
Provider Note Provider Note: Cardiology PROGRESS NOTE by Dr. Nandini Smith on 05/18/2019. Subjective: The patient states he feels much better. He has chronic orthopnea but no PND or shortness of breath at rest. There is no chest pain or anginal symptoms. His leg edema is almost improved and there is only trace edema. The patient continues to be in atrial fibrillation at present with controlled ventricular response. There is no TIA CVA symptoms there is no bleeding on Eliquis. PHYSICAL EXAMINATION: The patient is morbidly obese. In no acute distress. Selected Entries 05/18/19 11:14 Temperature 98.1 F Temperature Oral Source Pulse Rate 89 Respiratory 17 Rate Blood Pressure 97/59 L Blood Pressure 71 Mean BP Location Left Arm BP Position Sitting O2 Sat by Pulse 96 Oximetry Oxygen Delivery Room Air Method HEAD: Is atraumatic normocephalic. EYES: Equal round regular reactive to light and accommodation. Extraocular movements are normal. There is no conjunctival pallor. There is no scleral icterus. EARS: Tympanic membranes are intact. External auditory canals are clear.. NOSE: There is no deviated nasal septum. There is no inflammation nasal mucous membrane MOUTH: Mucous membranes of the mouth are moist. There is no ulcers. THROAT: There is no redness of the oropharynx. There is no exudates. NECK: Is supple. There is no JVD. Carotids equal there is no bruit. There is no lymphadenopathy there is no goiter. There is no accessory muscle respiration use. Trachea central there is no goiter. LUNGS: Shows diminished air entry prolonged expiration with no rhonchi or wheezing. There is few bibasilar rales of CHF. Heart S1-S2 is heard. S1 is of variable intensity. There is no S3 gallop. There is no S4 gallop. There is systolic murmur left sternal border and the apex there is no rub. ABDOMEN: Is morbidly obese. There is no hepatosplenomegaly. Bowel sounds are well heard. EXTREMITIES: Femorals are very deep. Femorals are diminished. There is no femoral bruits. Leg pulses are difficult to palpate. There is 1+ pedal edema bilaterally. There is no DVT or cellulitis. There is no calf tenderness. There is no cyanosis or clubbing. LICENSED OCCUPATIONAL THERAPY ASSISTANT: The patient is conscious awake alert oriented x3 with no focal deficits. PSYCHIATRIC: The patient judgment insight are intact his affect is normal. He does not appear to be depressed at present. Labs- All tests 24 hr 05/17/19 05/18/19 05/18/19 21:42 06:08 06:08 WBC 5.6 RBC 4.29 L Hgb 13.1 L Hct 39.3 MCV 92 MCH 30.6 MCHC 33.5 RDW 13.9 Plt Count 144 L Seg Neutrophils % 48.2 Lymphocytes % 37.0 Monocytes % 7.5 Eosinophils % 6.0 Basophils % 1.3 Absolute Neutrophils 2.7 Absolute Lymphocytes 2.1 Absolute Monocytes 0.4 Absolute Eosinophils 0.3 Absolute Basophils 0.1 Sodium 140.3 Potassium 4.3 Chloride 103 Carbon Dioxide 28 Anion Gap 9 BUN 22 H Creatinine 1.32 H Est GFR ( Amer) > 60 Est GFR (Non-Af Amer) 56 L Glucose 116 H POC Glucose 140 H Calcium 9.1 05/18/19 05/18/19 05/18/19 07:17 11:12 16:00 WBC RBC Hgb Hct MCV MCH MCHC RDW Plt Count Seg Neutrophils % Lymphocytes % Monocytes % Eosinophils % Basophils % Absolute Neutrophils Absolute Lymphocytes Absolute Monocytes Absolute Eosinophils Absolute Basophils Sodium Potassium Chloride Carbon Dioxide Anion Gap BUN Creatinine Est GFR ( Amer) Est GFR (Non-Af Amer) Glucose POC Glucose 106 114 H 106 Calcium Chest X-Ray 05/16/19 20:13 IMPRESSION: Cardiomegaly, pleural effusions and pulmonary edema. Note the patient's cardiac catheterization report from [facility] was obtained. The patient had a cardiac catheterization in 2013. He had right heart catheterization which showed a pulmonary artery pressure of 70/41 with a mean of 54 mmHg. Hence the patient had severe pulmonary hypertension at that time. He also had a left heart catheterization with coronary angiography which showed that the left main was normal and there was less than 30% proximal stenosis. The left anterior descending artery gives rise to a large first branching first diagonal branch and a small second diagonal branch there is 85% stenosis in the proximal first diagonal branch which was stented with a drug-eluting stent. Left circumflex is a large-caliber vessel and the dominant giving off obtuse marginal 1 and obtuse marginal 2 and a left PDA and there is a 40% stenosis in the mid vessel. The right coronary artery was nondominant. The left ventricular end-diastolic pressure was significantly elevated at 36. IMPRESSION/RECOMMENDATION: 1. 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 Continue diuretics. Continue CARMEN inhibitors and since I suspect that there is left ventricle systolic heart failure and presence of coronary artery disease, would recommend stopping the patient's Cardizem and place the patient on a beta-kay.. 2. Atrial Fibrillation: The patient is currently on Cardizem. Would recommend discontinue the patient's Cardizem place the patient on a beta-kay. We will start the patient on beta-kay 50 mg p.o. of Toprol-XL p.o. every 12 hours. Continue Eliquis. 3. Hypertension: Blood pressure well controlled. 4. Diabetes mellitus: Continue his antidiabetic medication and Accu-Cheks. 5. Chronic obstructive pulmonary disease: At present stable at baseline with no evidence of acute exacerbation. 6. Sleep apnea: Continue CPAP/BiPAP. 7. Coronary artery disease: At present no anginal symptoms continue current medications we will get the patient's records from [facility]. 8. Old myocardial infarction: In view of this will recommend stopping the patient's Cardizem and place the patient on beta-kay. 9. Morbid obesity: Later would recommend the patient have a weight loss program. 10. Suspect cardiomyopathy. Will check an echo as an outpatient. Medications reviewed. Medications adjusted would recommend stopping the patient's Plavix and aspirin. This has been discussed with Dr. Dennis the attending physician. Medical management plan was discussed with him in detail. Patient cardiac status stable. Can discharge the patient home. Medical decision making is now of moderate complexity. The patient is a patient of mine and hence will follow up with me in the office. We will get him an appointment as soon as possible after an echocardiogram. Note I agree with the patient's request for a hospital bed, since the patient has chronic orthopnea and with the severe morbid obesity, a hospital will be very beneficial for the patient. Will sign off
[2019-05-19] MEDS ORDERED: INSULIN GLARGINE,HUM.REC.ANLOG 1,000 UNIT/10 ML VIAL SUBCUT SCH (15:00)
== END 2019-05-18 18:53 | disposition home health service (06) | DRG 292 ==
LOC: ER 19:48 → EH 23:17 → 3W 05-17 01:34
PROVIDERS: ADMIT Internal Medicine Geriatric Medicine; ATTEND Internal Medicine Geriatric Medicine
PROC: 5A09357 Assistance with Respiratory Ventilation, Less than 24 Consecutive Hours, Continuous Positive Airway Pressure (ICD-10-PCS; principal; 2019-05-17)
DX: I11.0 Hypertensive heart disease with heart failure (principal); E66.2 Morbid (severe) obesity with alveolar hypoventilation; Z68.43 Body mass index [BMI] 50.0-59.9, adult; I48.2 Chronic atrial fibrillation; I50.23 Acute on chronic systolic (congestive) heart failure; I25.10 Atherosclerotic heart disease of native coronary artery without angina pectoris; J44.9 Chronic obstructive pulmonary disease, unspecified; E11.9 Type 2 diabetes mellitus without complications; E78.5 Hyperlipidemia, unspecified; K21.9 Gastro-esophageal reflux disease without esophagitis; M19.90 Unspecified osteoarthritis, unspecified site; F32.9 Major depressive disorder, single episode, unspecified; I25.2 Old myocardial infarction; Z79.4 Long term (current) use of insulin; Z79.02 Long term (current) use of antithrombotics/antiplatelets; Z82.49 Family history of ischemic heart disease and other diseases of the circulatory system; Z83.3 Family history of diabetes mellitus; Z79.82 Long term (current) use of aspirin; Z79.899 Other long term (current) drug therapy; Z88.8 Allergy status to other drugs, medicaments and biological substances
CPT/HCPCS: 36415; 71045; 80048; 80053; 81001; 82550; 82553; 82962; 83605; 83735; 83880; 84484; 85025; 85610; 87040; 87086; 93005; 93010; 94640; 94660; 96365; 96375; 99285; J0696; J1815; J1940; J7060; J7620

== ENCOUNTER 2019-06-15 20:37 | Inpatient (IN) | payer MEDICARE, MEDICAID ==
--- NOTE | 2019-06-15 20:59 | ER Document Report ---
ED Respiratory Problem - General Chief Complaint: Shortness Of Breath Stated Complaint: DYSPNEA X 2 WEEKS Time Seen by Provider: 06/15/19 20:59 Primary Care Provider: KIRK BEAULIEU MD [Primary Care Provider] - Follow up as needed Mode of Arrival: Ambulatory Information source: Patient Notes: HISTORY OF PRESENT ILLNESS: Patient is a 54-year-old male with a past medical history of coronary artery disease, diabetes, hypertension, CHF, and intermittent atrial for ablation who presents with palpitations and shortness of breath worse with exertion. Patient reports that he has had similar symptoms in the past that occurred when he had "bouts of atrial fibrillation." He currently denies chest pain but did state that when he was having palpitations earlier he felt slight tightness in his chest. He reports taking both diltiazem and metoprolol. Location: Chest Onset: Yesterday Alleviation: None Provocation: Exertion Quality: Tightness, palpitations Radiation: None Severity: Moderate Timing: Intermittent, "never goes away" History of CAD: Yes Associated symptoms: Reports mild chest tightness, also dyspnea on exertion, denies cough or fever REVIEW OF SYSTEMS: CONSTITUTIONAL : Denies fever or chills, no sweats. Denies recent illness. EENT: Denies eye, ear, throat, or mouth pain or symptoms. Denies nasal or sinus congestion. CARDIOVASCULAR: Positive for chest pain. Denies swelling of the legs. RESPIRATORY: Positive for shortness of breath and dyspnea on exertion. Denies cough, cold, or chest congestion. Denies wheezing. GASTROINTESTINAL: Denies abdominal pain. Denies nausea, vomiting, or diarrhea. Denies constipation. GENITOURINARY: Denies difficulty urinating, painful urination, burning, frequency, or blood in urine. MUSCULOSKELETAL: Denies neck or back pain or joint pain or swelling. SKIN: Denies rash or skin lesions. HEMATOLOGIC : Denies easy bruising or bleeding. LYMPHATIC: Denies swollen, enlarged glands. NEUROLOGICAL: Denies altered mental status or loss of consciousness. Denies headache. Denies weakness or paralysis or loss of use of either side. Denies problems with gait or speech. Denies sensory or motor loss. PSYCHIATRIC: Denies anxiety or stress or depression. All other systems reviewed and negative. PHYSICAL EXAMINATION: GENERAL: Morbidly obese but well-appearing, well-nourished and in mild acute distress. HEAD: Atraumatic, normocephalic. No scalp deformity, depression, or crepitance. EYES: Pupils are 3 mm and equal/round/reactive to light, extraocular movements intact, sclera anicteric, conjunctiva are normal. ENT: Nares patent bilaterally, oropharynx. Moist mucous membranes. No tonsil hypertrophy. NECK: Normal range of motion, supple without lymphadenopathy. LUNGS: Breath sounds present, equal, and clear to auscultation bilaterally. No wheezes, rales, or rhonchi. HEART: Irregularly irregular rate and rhythm without murmurs, rubs, or gallops. 2+ peripheral pulses. Normal capillary refill. ABDOMEN: Soft, nontender, nondistended. Normoactive bowel sounds. No guarding, no rebound. No masses appreciated. BACK: Normal contour, no midline tenderness. Rectal exam deferred. GENITAL/PELVIC: Deferred. EXTREMITIES: Normal range of motion, 2+ edema. No cyanosis. NEUROLOGICAL: No focal neurological deficits. Moves all extremities spontaneously and on command. PSYCH: Normal mood, normal affect. No suicidal thoughts/ideations. No homicidal thoughts/ideations. No hallucinations. SKIN: Warm, dry, normal turgor, no rashes or lesions noted. ASSESSMENT AND PLAN: This patient is a 54-year-old male who presents with dyspnea on exertion coinciding with recurrent episode of atrial fibrillation. 1. Will obtain labs, urine, troponin, BNP, and chest x-ray. 2. Will give IV diltiazem for rate control and admit to the hospital. TRAVEL OUTSIDE OF THE [place] IN LAST 30 DAYS: No - HPI Patient complains to provider of: Short of breath Onset: This morning Duration: Continuous, Worse/persistent Initiating Event: Other - Atrial fibrillation Quality of pain: No pain Severity: Moderate Pain Level: Denies Context: Other - History of atrial fibrillation Short of Breath: Moderate Associated symptoms: Difficulty breathing, Extertional dyspnea, Heart racing, Sweaty Similar symptoms previously: Yes Recently seen / treated by doctor: Yes - Related Data Allergies/Adverse Reactions: fluoxetine [From Prozac] Allergy (Verified 04/28/19 14:33) Past Medical History - General Information source: Patient - Social History Smoking Status: Never Smoker Chew tobacco use (# tins/day): No Frequency of alcohol use: None Drug Abuse: None Lives with: Alone Family History: None, Reviewed & Not Pertinent Patient has suicidal ideation: No Patient has homicidal ideation: No - Past Medical History Cardiac Medical History: Reports: Hx Atrial Fibrillation, Hx Congestive Heart Failure, Hx Coronary Artery Disease, Hx Heart Attack - x1 2008 or 2010, Hx Hypercholesterolemia, Hx Hypertension Pulmonary Medical History: Reports: Hx COPD, Hx Sleep Apnea EENT Medical History: Reports: None Neurological Medical History: Reports: None Endocrine Medical History: Reports: 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 Denies: Hx Peritoneal Dialysis Malignancy Medical History: Reports None GI Medical History: Reports: None, Hx Gastroesophageal Reflux Disease Musculoskeletal Medical History: Reports Hx Arthritis Skin Medical History: Reports None Psychiatric Medical History: Reports: Hx Depression Traumatic Medical History: Reports: None Infectious Medical History: Reports: None Past Surgical History: Reports: Hx Cardiac Catheterization - w/ stent x1 (2008 or 2009) - Immunizations Immunizations up to date: Yes Hx Diphtheria, Pertussis, Tetanus Vaccination: Yes Review of Systems - Review of Systems Constitutional: No symptoms reported EENT: No symptoms reported Cardiovascular: See HPI, Chest pain, Palpitations, Dyspnea Respiratory: See HPI, Short of breath Gastrointestinal: No symptoms reported Genitourinary: No symptoms reported Male Genitourinary: No symptoms reported Musculoskeletal: No symptoms reported Skin: No symptoms reported Hematologic/Lymphatic: No symptoms reported Neurological/Psychological: No symptoms reported -: Yes All other systems reviewed and negative Physical Exam - Vital signs Vitals: Resp Pulse Ox 32 H 95 06/15/19 20:43 06/15/19 20:43 Interpretation: Normal - General General appearance: Appears well, Alert - HEENT Head: Normocephalic, Atraumatic Eyes: Normal Pupils: PERRL - Respiratory Respiratory status: No respiratory distress Chest status: Nontender Breath sounds: Normal Chest palpation: Normal - Cardiovascular Rhythm: Regular Heart sounds: Normal auscultation Murmur: No - Abdominal Inspection: Normal Distension: No distension Bowel sounds: Normal Tenderness: Nontender Organomegaly: No organomegaly - Back Back: Normal, Nontender - Extremities General upper extremity: Normal inspection, Nontender, Normal color, Normal ROM, Normal temperature General lower extremity: Normal inspection, Nontender, Normal color, Normal ROM, Normal temperature, Normal weight bearing. No: Tabitha's sign - Neurological Neuro grossly intact: Yes Cognition: Normal Orientation: AAOx4 [place] Coma Scale Eye Opening: Spontaneous Ariel Coma Scale Verbal: Oriented [place] Coma Scale Motor: Obeys Commands [place] Coma Scale Total: 15 Speech: Normal Motor strength normal: LUE, RUE, LLE, RLE Sensory: Normal - Psychological Associated symptoms: Normal affect, Normal mood - Skin Skin Temperature: Warm Skin Moisture: Dry Skin Color: Normal Course - Re-evaluation Re-evalutation: 06/16/19 01:20 Cardiac enzymes are negative. Chest x-ray shows likely moderate pleural effusion on the right. Patient has been given 20 mg IV diltiazem bolus and is now on diltiazem drip. He is admitted to the hospital. - Vital Signs Vital signs: Temp Pulse Resp BP Pulse Ox 98.1 F 96 18 123/94 H 95 06/15/19 20:48 06/16/19 01:02 06/16/19 01:02 06/16/19 01:02 06/16/19 01:02 - Laboratory Result Diagrams: 06/15/19 21:00 06/15/19 21:00 Laboratory results interpreted by me: 06/15/19 06/15/19 06/15/19 21:00 21:00 21:00 RDW 14.4 H Plt Count 137 L PT 17.8 H Glucose 189 H Urine Blood Urine Urobilinogen Ur Leukocyte Esterase 06/15/19 21:50 RDW Plt Count PT Glucose Urine Blood SMALL H Urine Urobilinogen 2.0 H Ur Leukocyte Esterase LARGE H - Diagnostic Test Radiology reviewed: Image reviewed, Reports reviewed - EKG Interpretation by Me EKG shows normal: Sinus rhythm Rate: Tachycardia Rhythm: A.Fib [place]/QRS: No: Right axis deviation, Left axis deviation, RBBB, LBBB, IVCD, LAHB/LAFB, LPHB/LPFB, Bifasicular block Voltage: No: Increased voltage, Consistant with LVH, Decreased voltage, Throughout, Limb leads P Waves: No: KELLY, LAE, Absent, AV Dissociation, Other Heart block present: No: 1st Degree, Mobitz 1, Mobitz 2, CHB (3rd degree block) When compared to previous EKG there are: No significant change - Consults Dr. Beaulieu Time consulted: 01:05 - will admit Consulted provider: will come to ER Discharge - Discharge Clinical Impression: Atrial fibrillation with RVR Congestive heart failure (CHF) Qualifiers: Heart failure type: unspecified Heart failure chronicity: unspecified Qualified Code(s): I50.9 - Heart failure, unspecified Condition: Stable Disposition: ADMITTED INPATIENT Admitting Provider: Sonny Unit Admitted: [facility] Referrals: KIRK BEAULIEU MD [Primary Care Provider] - Follow up as needed
[2019-06-15] MEDS ORDERED: DILTIAZEM HCL INJ 25 MG/5 ML VIAL IV ONE (21:17)
[2019-06-15 21:30] LABS: ABSOLUTE BASOPHILS # (AUTO) 0.1 10^3/uL (0.0-0.2); ABSOLUTE EOSINOPHILS # (AUTO) 0.2 10^3/uL (0.0-0.6); ABSOLUTE LYMPHOCYTES (AUTO) 1.8 10^3/uL (0.5-4.7); ABSOLUTE MONOCYTES (AUTO) 0.4 10^3/uL (0.1-1.4); ABSOLUTE NEUT (AUTO) 3.6 10^3/uL (1.7-8.2); BASOPHILS % (AUTO) 1.1 % (0-2); EOSINOPHILS % (AUTO) 3.1 % (0-6); HEMATOCRIT 40.9 % (37.9-51.0); HEMOGLOBIN 13.6 g/dL (13.5-17.0); LYMPHOCYTES % (AUTO) 29.9 % (13-45); MEAN CORPUSCULAR HEMOGLOBIN 29.7 pg (27.0-33.4); MEAN CORPUSCULAR HGB CONC 33.2 g/dL (32.0-36.0); MEAN CORPUSCULAR VOLUME 89 fl (80-97); MONOCYTES % (AUTO) 6.9 % (3-13); PLATELET COUNT 137 10^3/uL (150-450); RED BLOOD COUNT 4.58 10^6/uL (4.35-5.55); RED CELL DISTRIBUTION WIDTH 14.4 % (11.5-14.0); TOTAL CELLS COUNTED % (AUTO) 100 %; WHITE BLOOD COUNT 6.1 10^3/uL (4.0-10.5)
[2019-06-15 21:34] LABS: INTERNATIONAL RATION (INR) 1.45; PROTHROMBIN TIME 17.8 SEC (11.4-15.4)
[2019-06-15 21:35] LABS: PARTIAL THROMBOPLASTIN TIME 32.6 SEC (23.5-35.8)
[2019-06-15 21:49] LABS: ALBUMIN 4.2 g/dL (3.5-5.0); ALKALINE PHOSPHATASE 120 U/L (38-126); ANION GAP 13 (5-19); ASPARTATE AMINO TRANSFERASE 26 U/L (17-59); BILIRUBIN,DIRECT 0.2 mg/dL (0.0-0.4); BILIRUBIN,TOTAL 0.5 mg/dL (0.2-1.3); BLOOD UREA NITROGEN 17 mg/dL (7-20); CARBON DIOXIDE 22 mmol/L (22-30); CHLORIDE 104 mmol/L (98-107); GLUCOSE 189 mg/dL (75-110); POTASSIUM 3.8 mmol/L (3.6-5.0); TOTAL PROTEIN 7.6 g/dL (6.3-8.2)
--- NOTE | 2019-06-15 22:48 | RADIOLOGY REPORT (SQ) ---
EXAM DESCRIPTION: Portable chest x-ray CLINICAL HISTORY: 54 years Male, Shortness of breath COMPARISON: 05/16/2019. FINDINGS: Moderate cardiomegaly probably exaggerated by fat. Rotated film. No obvious acute mediastinal widening. Moderate size right pleural parenchymal processes similar to chest x-ray from 05/16/2019. No overt acute abnormality in the left lung. IMPRESSION: Moderate size pleural-parenchymal abnormality in the right lower chest. Similar to 05/16/2019. New since 02/22/2019.
[2019-06-15 22:51] LABS: APPEARANCE,URINE SLIGHTLY-CLOUDY; BILIRUBIN,URINE NEGATIVE (NEGATIVE); COLOR,URINE YELLOW; GLUCOSE, URINE NEGATIVE (NEGATIVE); KETONES,URINE NEGATIVE (NEGATIVE); LEUKOCYTE ESTERASE,URINE LARGE (NEGATIVE); NITRITE,URINE NEGATIVE (NEGATIVE); PROTEIN,URINE NEGATIVE (NEGATIVE); URINE SPECIFIC GRAVITY 1.023
[2019-06-15 23:04] LABS: URINE AMPHETAMINES SCREEN NEGATIVE; URINE BARBITURATES SCREEN NEGATIVE; URINE BENZODIAZEPINES SCREEN NEGATIVE; URINE COCAINE SCREEN NEGATIVE; URINE MARIJUANA (THC) SCREEN NEGATIVE; URINE METHADONE SCREEN NEGATIVE; URINE PHENCYCLIDINE SCREEN NEGATIVE
[2019-06-16] MEDS ORDERED: DILTIAZEM HCL/D5W 125 MG/125 ML RTUINJ IV PRN (00:16)
[2019-06-16] MEDS ORDERED: DILTIAZEM HCL INJ 25 MG/5 ML VIAL IV ONE (00:16)
[2019-06-16] MEDS ORDERED: DEXTROSE 50%-WATER 25 GM/50 ML DISP.SYRIN IV PRN ×2 (08:14)
[2019-06-16] MEDS ORDERED: DEXTROSE 40% GEL 15 GM TUBE PO PRN ×2 (08:14)
[2019-06-16] MEDS ORDERED: GLUCAGON,HUMAN RECOMB 1 MG INJ IM PRN (08:14)
--- NOTE | 2019-06-16 08:14 | EKG REPORT ---
SEVERITY:- ABNORMAL ECG - ATRIAL FIBRILLATION ANTERIOR INFARCT, AGE INDETERMINATE : Confirmed by: Nandini Smith MD 16-Jun-2019 08:14:19
[2019-06-16] MEDS: DILTIAZEM HCL 30 MG TABLET PO SCH ×4 (08:34→23:33)
[2019-06-16] MEDS: INSULIN LISPRO 100 UNIT/ML 3 ML VIAL SUBCUT SCH ×3 (13:06→23:33)
[2019-06-16] MEDS ORDERED: (PENDING PHARMACY ID) (Levalbuterol Tartrate [Xopenex Hfa] 1 PUFF) IH PRN (18:18)
[2019-06-16] MEDS ORDERED: NITROGLYCERIN 0.4 MG/TAB 25 TAB/BOTTLE SL PRN (18:18)
[2019-06-16] MEDS: METOPROLOL SUCCINATE 50 MG TAB.SR.24H PO SCH (19:25)
--- NOTE | 2019-06-16 20:15 | PDOC H&P ---
History of Present Illness Admission Date/PCP: 06/16/19 01:33 KIRK BRITTNEE Patient complains of: Palpitation; Shortness of breath History of Present Illness: DAVID PHILLIPS is a 54 year old male patient known to my practice who presented to the ED with complaint of worsening shortness of breath and palpitation with exertion. Patient reported that his symptoms have been ongoing for several days. Patient reported that his remote monitoring device indicated persistent tachycardia and he was advised to seek medical attention immediately. He denied any chest pain or dizziness but admitted to persistent tightness feeling in his chest. He admitted to medication compliance and denied alcohol or illicit drug usage. He was recently discharged from this hospital with similar presentation with diagnosis of atrial fibrillation and diastolic congestive heart failure. His morbidities include HTN, HLD, CAD and diastolic congestive heart failure. 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, Diabetes Mellitus Type 2 - insulin-dependent Renal/ Medical History: Reports: None Malignancy Medical History: Reports: None GI Medical History: Reports: None, Gastroesophageal Reflux Disease Musculoskeltal Medical History: Reports: Arthritis Skin Medical History: Reports: None Psychiatric Medical History: Reports: Depression Traumatic Medical History: Reports: None Infectious Medical History: Reports: None Past Surgical History Past Surgical History: Reports: Cardiac Catheterization - w/ stent x1 (2008 or 2009) Social History Lives with: Alone Smoking Status: Never Smoker Frequency of Alcohol Use: Occasional Hx Recreational Drug Use: No Drugs: None Hx Prescription Drug Abuse: No - Advance Directive Resuscitation Status: Full Code Family History Family History: None, Reviewed & Not Pertinent Parental Family History Reviewed: Yes Children Family History Reviewed: Yes Sibling(s) Family History Reviewed.: Yes Medication/Allergy Home Medications: Allopurinol [Zyloprim 300 mg Tablet] 300 mg PO DAILY 06/16/19 Apixaban [Eliquis 5 mg Tablet] 5 mg PO Q12 06/16/19 Colchicine [Colcrys 0.6 mg Tablet] 0.6 mg PO BID 06/16/19 Diltiazem HCl [Cardizem Cd 120 mg Capsule] 120 mg PO DAILY 06/16/19 Furosemide [Lasix 20 mg Tablet] 20 mg PO BID 06/16/19 Hydrocodone/Acetaminophen [[place] 5-325 mg Tablet] 1 tab PO BIDP PRN 06/16/19 Irbesartan [Avapro] 150 mg PO DAILY 06/16/19 Levalbuterol Tartrate [Xopenex Hfa] 1 puff IH Q6HP PRN 06/16/19 Metoprolol Succinate [Toprol Xl 50 mg Tab.sr] 50 mg PO BID 06/16/19 Nitroglycerin [Nitrostat 0.4 mg (1/150 Gr) Tabs 25/Bottle] 0.4 mg SL Q5MP PRN 06/16/19 Pregabalin [Lyrica 100 mg Capsule] 100 mg PO Q12 06/16/19 Spironolactone [Aldactone 25 mg Tablet] 25 mg PO DAILY 06/16/19 Umeclidinium Brm/Vilanterol Tr [Anoro Ellipta 62.5-25 Mcg INH] 1 puff IH DAILY 06/16/19 Allergies/Adverse Reactions: fluoxetine [From Prozac] Allergy (Verified 04/28/19 14:33) Review of Systems Constitutional: ABSENT: chills, fever(s), headache(s), weight gain, weight loss Eyes: ABSENT: visual disturbances Ears: ABSENT: hearing changes Nose, Mouth, and Throat: ABSENT: as per HPI, headache(s), mouth pain, sore throat, vertigo, other Cardiovascular: PRESENT: dyspnea on exertion, palpitations Respiratory: PRESENT: dyspnea Gastrointestinal: ABSENT: abdominal pain, constipation, diarrhea, hematemesis, hematochezia, nausea, vomiting Musculoskeletal: ABSENT: joint swelling Integumentary: ABSENT: rash, wounds Neurological: ABSENT: abnormal gait, abnormal speech, confusion, dizziness, focal weakness, syncope Psychiatric: ABSENT: anxiety, depression, homidical ideation, suicidal ideation Hematologic/Lymphatic: ABSENT: easy bleeding, easy bruising, lymphadenopathy Allergic/Immunologic: ABSENT: seasonal rhinorrhea Physical Exam Vital Signs: Temp Pulse Resp BP Pulse Ox 97.4 F 98 22 H 127/81 H 99 06/16/19 03:01 06/16/19 07:00 06/16/19 03:49 06/16/19 06:30 06/16/19 03:01 Intake & Output 06/15/19 06/16/19 06/17/19 06:59 06:59 06:59 Intake Total 68 Output Total 200 Balance -132 Weight 183.5 kg General appearance: PRESENT: morbidly obese Head exam: PRESENT: atraumatic, normocephalic Eye exam: PRESENT: conjunctiva pink, EOMI, PERRLA. ABSENT: scleral icterus Ear exam: PRESENT: normal external ear exam Mouth exam: PRESENT: moist Throat exam: ABSENT: post pharyngeal erythema, tonsillar erythema, tonsillar exudate, tonsillogmegaly Neck exam: PRESENT: full ROM. ABSENT: carotid bruit, JVD, lymphadenopathy, thyromegaly Respiratory exam: PRESENT: clear to auscultation laura, decreased breath sounds - at lung bases Cardiovascular exam: PRESENT: irregular rhythm, +S1, +S2. ABSENT: diastolic murmur, systolic murmur Vascular exam: ABSENT: pallor GI/Abdominal exam: PRESENT: normal bowel sounds, soft. ABSENT: distended, gu arding, mass, organolmegaly, rebound, tenderness Rectal exam: PRESENT: deferred Extremities exam: ABSENT: pedal edema Musculoskeletal exam: PRESENT: normal inspection Neurological exam: PRESENT: alert, awake, oriented to person, oriented to place, oriented to time, oriented to situation, CN II-XII grossly intact. ABSENT: motor sensory deficit Psychiatric exam: PRESENT: appropriate affect, normal mood. ABSENT: homicidal ideation, suicidal ideation Skin exam: PRESENT: dry, warm Results Laboratory Results: 06/15/19 21:00 06/15/19 21:00 06/15/19 06/15/19 06/15/19 21:00 21:00 21:50 WBC 6.1 RBC 4.58 Hgb 13.6 Hct 40.9 MCV 89 MCH 29.7 MCHC 33.2 RDW 14.4 H Plt Count 137 L Seg Neutrophils % 59.0 Sodium 138.6 Potassium 3.8 Chloride 104 Carbon Dioxide 22 Anion Gap 13 BUN 17 Creatinine 1.14 Est GFR ( Amer) > 60 Glucose 189 H Calcium 9.0 Total Bilirubin 0.5 AST 26 Alkaline Phosphatase 120 Total Protein 7.6 Albumin 4.2 Urine Color YELLOW Urine Appearance SLIGHTLY-CLOUDY Urine pH 5.0 Ur Specific [place] 1.023 Urine Protein NEGATIVE Urine Glucose (UA) NEGATIVE Urine Ketones NEGATIVE Urine Blood SMALL H Urine Nitrite NEGATIVE Ur Leukocyte Esterase LARGE H Urine WBC (Auto) 43 Urine RBC (Auto) 4 06/15/19 21:00 Troponin I < 0.012 Impressions: Chest X-Ray 06/15/19 21:15 IMPRESSION: Moderate size pleural-parenchymal abnormality in the right lower chest. Similar to 05/16/2019. New since 02/22/2019. Assessment & Plan - Diagnosis (1) Chronic atrial fibrillation with RVR Is this a current diagnosis for this admission?: Yes Plan: See admitting physician orders about details of care plan. (2) Diastolic CHF with preserved left ventricular function, NYHA class 2 Plan: See admitting physician orders about details of care plan. (3) Type 2 diabetes mellitus with obesity Is this a current diagnosis for this admission?: Yes Plan: See admitting physician orders about details of care plan. (4) CAD S/P percutaneous coronary angioplasty Is this a current diagnosis for this admission?: Yes Plan: See admitting physician orders about details of care plan. (5) HTN (hypertension) Qualifiers: Hypertension type: essential hypertension Is this a current diagnosis for this admission?: Yes Plan: See admitting physician orders about details of care plan. (6) HLD (hyperlipidemia) Qualifiers: Hyperlipidemia type: unspecified Is this a current diagnosis for this admission?: Yes Plan: See admitting physician orders about details of care plan. (7) SAMY and COPD overlap syndrome Is this a current diagnosis for this admission?: Yes Plan: See admitting physician orders about details of care plan. 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 (9) Osteoarthritis involving multiple joints on both sides of body Is this a current diagnosis for this admission?: Yes Plan: See admitting physician orders about details of care plan. (10) Morbid obesity with BMI of 50.0-59.9, adult Is this a current diagnosis for this admission?: Yes Plan: See admitting physician orders about details of care plan. - Time Time Spent: 50 to 70 Minutes Medications reviewed and adjusted accordingly: Yes Anticipated discharge: Home with Homehealth Within: Other - Inpatient Certification Based on my medical assessment, after consideration of the patient's comorbidities, presenting symptoms, or acuity I expect that the services needed warrant INPATIENT care.: Yes I certify that my determination is in accordance with my understanding of Medicare's requirements for reasonable and necessary INPATIENT services [42 CFR 412.3e].: Yes Medical Necessity: Significant Comorbidiites Make Outpatient Treatment Too Risky, Need Close Monitoring Due to Risk of Patient Decompensation, Need For Continuous Telemetry Monitoring, Need for Nebulizer Therapy and Monitoring of Response, Risk of Complication if Not Cared For in Hospital, Risk of Diagnosis Which Will Require Inpatient Eval/Care/Monitoring Post Hospital Care: D/C Resident Manager Documentation - Plan Summary Plan Summary: See admitting physician orders about details of care plan.
[2019-06-16] MEDS: APIXABAN 5 MG TABLET PO SCH (23:32)
[2019-06-16] MEDS: PREGABALIN 100 MG CAPSULE PO SCH (23:32)
[2019-06-17] MEDS: PANTOPRAZOLE SODIUM 40 MG TABLET.DR PO SCH (06:07)
[2019-06-17] MEDS: DILTIAZEM HCL 30 MG TABLET PO SCH ×3 (06:07→17:17)
[2019-06-17 07:16] LABS: ANION GAP 10 (5-19); BLOOD UREA NITROGEN 15 mg/dL (7-20); CALCIUM 9.2 mg/dL (8.4-10.2); CARBON DIOXIDE 24 mmol/L (22-30); CHLORIDE 105 mmol/L (98-107); GLUCOSE 149 mg/dL (75-110)
[2019-06-17 07:23] LABS: ABSOLUTE EOSINOPHILS # (AUTO) 0.2 10^3/uL (0.0-0.6); ABSOLUTE LYMPHOCYTES (AUTO) 1.9 10^3/uL (0.5-4.7); ABSOLUTE MONOCYTES (AUTO) 0.4 10^3/uL (0.1-1.4); ABSOLUTE NEUT (AUTO) 2.7 10^3/uL (1.7-8.2); BASOPHILS % (AUTO) 0.9 % (0-2); EOSINOPHILS % (AUTO) 3.9 % (0-6); HEMATOCRIT 42.2 % (37.9-51.0); HEMOGLOBIN 13.8 g/dL (13.5-17.0); LYMPHOCYTES % (AUTO) 35.5 % (13-45); MEAN CORPUSCULAR HEMOGLOBIN 29.1 pg (27.0-33.4); MEAN CORPUSCULAR HGB CONC 32.7 g/dL (32.0-36.0); MEAN CORPUSCULAR VOLUME 89 fl (80-97); MONOCYTES % (AUTO) 8.3 % (3-13); PLATELET COUNT 117 10^3/uL (150-450); RED BLOOD COUNT 4.74 10^6/uL (4.35-5.55); RED CELL DISTRIBUTION WIDTH 14.5 % (11.5-14.0); SEGMENTED NEUTROPHILS % (AUTO) 51.4 % (42-78); TOTAL CELLS COUNTED % (AUTO) 100 %; WHITE BLOOD COUNT 5.3 10^3/uL (4.0-10.5)
[2019-06-17] MEDS ORDERED: METOPROLOL SUCCINATE 50 MG TAB.SR.24H PO ONE (08:00)
[2019-06-17] MEDS: INSULIN LISPRO 100 UNIT/ML 3 ML VIAL SUBCUT SCH ×4 (08:16→21:45)
[2019-06-17] MEDS: METOPROLOL SUCCINATE 50 MG TAB.SR.24H PO SCH ×2 (09:22→21:52)
[2019-06-17] MEDS: PREGABALIN 100 MG CAPSULE PO SCH ×2 (09:26→21:52)
[2019-06-17] MEDS: APIXABAN 5 MG TABLET PO SCH ×2 (09:26→21:52)
[2019-06-17] MEDS: SPIRONOLACTONE 25 MG TABLET PO SCH (09:27)
[2019-06-17] MEDS: ALLOPURINOL 300 MG TABLET PO SCH (09:30)
[2019-06-17] MEDS: FUROSEMIDE 20 MG TABLET PO SCH ×2 (09:32→17:17)
[2019-06-17] MEDS ORDERED: (PENDING PHARMACY ID) (Umeclidinium Brm/Vilanterol Tr [Anoro Ellipta 62.5-25 Mcg Inh] 1 PU IH SCH (10:00)
--- NOTE | 2019-06-17 19:02 | PDOC PROGRESS REPORT ---
Subjective Progress Note for:: 06/17/19 Subjective:: Patient reported nasal and sinus congestion with running nose. He denied ant associated pain, headache, or visual component. No chest pain or difficulty with breathing. His monitoring coordinator continue to demonstrated atrial fibrillation with RVR. Reason For Visit: CHRONIC ATRIAL FIBRILLATION WITH RVR Physical Exam Vital Signs: Temp Pulse Resp BP Pulse Ox 97.7 F 136 H 17 98/54 L 95 06/17/19 15:19 06/17/19 15:19 06/17/19 15:19 06/17/19 15:19 06/17/19 15:19 Intake & Output 06/16/19 06/17/19 06/18/19 06:59 06:59 06:59 Intake Total 68 385 680 Output Total 200 700 Balance -132 -315 680 Weight 183.5 kg 182.7 kg General appearance: PRESENT: no acute distress, morbidly obese Head exam: PRESENT: atraumatic, normocephalic Eye exam: PRESENT: conjunctiva pink. ABSENT: scleral icterus Ear exam: PRESENT: normal external ear exam Mouth exam: PRESENT: moist Respiratory exam: PRESENT: clear to auscultation laura, decreased breath sounds - at lung bases Cardiovascular exam: PRESENT: irregular rhythm, +S1, +S2. ABSENT: diastolic murmur, systolic murmur Vascular exam: ABSENT: pallor GI/Abdominal exam: PRESENT: normal bowel sounds, soft. ABSENT: distended, guarding, mass, organolmegaly, rebound, tenderness Musculoskeletal exam: PRESENT: normal inspection Neurological exam: PRESENT: alert, awake, oriented to person, oriented to place, oriented to time, oriented to situation, CN II-XII grossly intact. ABSENT: motor sensory deficit Psychiatric exam: PRESENT: appropriate affect, normal mood. ABSENT: homicidal ideation, suicidal ideation Skin exam: PRESENT: dry, warm Results Laboratory Results: 06/17/19 06:40 06/17/19 06:40 06/17/19 06/17/19 06:40 06:40 WBC 5.3 RBC 4.74 Hgb 13.8 Hct 42.2 MCV 89 MCH 29.1 MCHC 32.7 RDW 14.5 H Plt Count 117 L Seg Neutrophils % 51.4 Sodium 139.4 Potassium 4.0 Chloride 105 Carbon Dioxide 24 Anion Gap 10 BUN 15 Creatinine 1.01 Est GFR ( Amer) > 60 Glucose 149 H Calcium 9.2 Magnesium 2.0 06/15/19 21:00 Troponin I < 0.012 Impressions: Chest X-Ray 06/15/19 21:15 IMPRESSION: Moderate size pleural-parenchymal abnormality in the right lower chest. Similar to 05/16/2019. New since 02/22/2019. Assessment & Plan - Diagnosis (1) Chronic atrial fibrillation with RVR Is this a current diagnosis for this admission?: Yes (3) Type 2 diabetes mellitus with obesity Is this a current diagnosis for this admission?: Yes (4) CAD S/P percutaneous coronary angioplasty Is this a current diagnosis for this admission?: Yes (5) HTN (hypertension) Qualifiers: Hypertension type: essential hypertension Is this a current diagnosis for this admission?: Yes (6) HLD (hyperlipidemia) Qualifiers: Hyperlipidemia type: unspecified Is this a current diagnosis for this admission?: Yes (7) SAMY and COPD overlap syndrome Is this a current diagnosis for this admission?: Yes (8) 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 Is this a current diagnosis for this admission?: Yes (9) Osteoarthritis involving multiple joints on both sides of body Is this a current diagnosis for this admission?: Yes (10) Morbid obesity with BMI of 50.0-59.9, adult Is this a current diagnosis for this admission?: Yes (11) Seasonal allergic rhinitis Qualifiers: Allergic rhinitis trigger: unspecified Qualified Code(s): J30.2 - Other seasonal allergic rhinitis Is this a current diagnosis for this admission?: Yes Plan: Start on Claritin 10 mg o daily - Time Time Spent with patient: 25-34 minutes Medications reviewed and adjusted accordingly: Yes Anticipated discharge: Home with Homehealth Within: Other - Inpatient Certification Based on my medical assessment, after consideration of the patient's comorbidities, presenting symptoms, or acuity I expect that the services needed warrant INPATIENT care.: Yes I certify that my determination is in accordance with my understanding of Medicare's requirements for reasonable and necessary INPATIENT services [42 CFR 412.3e].: Yes Medical Necessity: Significant Comorbidiites Make Outpatient Treatment Too Risky, Need Close Monitoring Due to Risk of Patient Decompensation, Need For Continuous Telemetry Monitoring, Risk of Complication if Not Cared For in Hospital, Risk of Diagnosis Which Will Require Inpatient Eval/Care/Monitoring Post Hospital Care: D/C Registered Respiratory Technician Documentation - Plan Summary Plan Summary: Start on Claritin 10 mg p.o daily, first dose tonight. Administer IV Digoxin 0.2 5 mg x 1 dose now. Continue with all other current medication management.
[2019-06-17] MEDS ORDERED: DIGOXIN INJ 0.5 MG/2 ML AMPULE IV ONE (19:30)
[2019-06-17] MEDS: LORATADINE 10 MG TABLET PO SCH (19:35)
[2019-06-18] MEDS: DILTIAZEM HCL 30 MG TABLET PO SCH ×4 (00:19→17:11)
[2019-06-18] MEDS: PANTOPRAZOLE SODIUM 40 MG TABLET.DR PO SCH (05:29)
[2019-06-18] MEDS: INSULIN LISPRO 100 UNIT/ML 3 ML VIAL SUBCUT SCH ×4 (09:23→21:35)
[2019-06-18] MEDS: SPIRONOLACTONE 25 MG TABLET PO SCH (10:28)
[2019-06-18] MEDS: ALLOPURINOL 300 MG TABLET PO SCH (10:28)
[2019-06-18] MEDS: PREGABALIN 100 MG CAPSULE PO SCH ×2 (10:28→21:35)
[2019-06-18] MEDS: LORATADINE 10 MG TABLET PO SCH (10:28)
[2019-06-18] MEDS: FUROSEMIDE 20 MG TABLET PO SCH ×2 (10:28→17:10)
[2019-06-18] MEDS: APIXABAN 5 MG TABLET PO SCH ×2 (10:28→21:34)
[2019-06-18] MEDS: METOPROLOL SUCCINATE 50 MG TAB.SR.24H PO SCH ×2 (10:29→21:35)
[2019-06-18] MEDS ORDERED: DIGOXIN INJ 0.5 MG/2 ML AMPULE IV ONE ×2 (18:24→20:45)
--- NOTE | 2019-06-18 18:39 | PDOC PROGRESS REPORT ---
Subjective Progress Note for:: 06/18/19 Subjective:: Patient denied chest pain or difficulty with breathing. He reported not feeling comfortable laying in his bed. His surveillance monitor continue to demonstrated atrial fibrillation with RVR. No nausea, vomiting,or abdominal pain. Reason For Visit: CHRONIC ATRIAL FIBRILLATION WITH RVR Physical Exam Vital Signs: Temp Pulse Resp BP Pulse Ox 97.3 F 82 18 107/71 97 06/18/19 14:34 06/18/19 14:34 06/18/19 14:34 06/18/19 14:34 06/18/19 14:34 Intake & Output 06/17/19 06/18/19 06/19/19 06:59 06:59 06:59 Intake Total 385 680 240 Output Total 700 Balance -315 680 240 Weight 182.7 kg 170.8 kg Physical Exam: General appearance: PRESENT: no acute distress, morbidly obese Head exam: PRESENT: atraumatic, normocephalic Eye exam: PRESENT: conjunctiva pink. ABSENT: pallor, scleral icterus Ear exam: PRESENT: normal external ear exam Mouth exam: PRESENT: moist Respiratory exam: PRESENT: clear to auscultation laura, decreased breath sounds - at lung bases Cardiovascular exam: PRESENT: irregular rhythm, +S1, +S2. ABSENT: diastolic murmur, systolic murmur GI/Abdominal exam: PRESENT: normal bowel sounds, soft. ABSENT: distended, guarding, mass, organomegaly, rebound, tenderness Musculoskeletal exam: PRESENT: normal inspection Neurological exam: PRESENT: alert, awake, oriented to person, oriented to place, oriented to time, oriented to situation, CN II-XII grossly intact. ABSENT: motor sensory deficit Psychiatric exam: PRESENT: appropriate affect, normal mood. ABSENT: homicidal ideation, suicidal ideation Skin exam: PRESENT: dry, warm Results Laboratory Results: 06/17/19 06:40 06/17/19 06:40 06/15/19 21:00 Troponin I < 0.012 Impressions: Chest X-Ray 06/15/19 21:15 IMPRESSION: Moderate size pleural-parenchymal abnormality in the right lower chest. Similar to 05/16/2019. New since 02/22/2019. Assessment & Plan - Diagnosis (1) Chronic atrial fibrillation with RVR Is this a current diagnosis for this admission?: Yes (3) Type 2 diabetes mellitus with obesity Is this a current diagnosis for this admission?: Yes (4) CAD S/P percutaneous coronary angioplasty Is this a current diagnosis for this admission?: Yes (5) HTN (hypertension) Qualifiers: Hypertension type: essential hypertension Qualified Code(s): I10 - Essential (primary) hypertension Is this a current diagnosis for this admission?: Yes (6) HLD (hyperlipidemia) Qualifiers: Hyperlipidemia type: unspecified Qualified Code(s): E78.5 - Hyperlipidemia, unspecified Is this a current diagnosis for this admission?: Yes (7) SAMY and COPD overlap syndrome Is this a current diagnosis for this admission?: Yes (8) 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 Is this a current diagnosis for this admission?: Yes (9) Osteoarthritis involving multiple joints on both sides of body Is this a current diagnosis for this admission?: Yes (10) Morbid obesity with BMI of 50.0-59.9, adult Is this a current diagnosis for this admission?: Yes (11) Seasonal allergic rhinitis Qualifiers: Allergic rhinitis trigger: unspecified Qualified Code(s): J30.2 - Other seasonal allergic rhinitis Is this a current diagnosis for this admission?: Yes - Time Time Spent with patient: 25-34 minutes Medications reviewed and adjusted accordingly: Yes Anticipated discharge: Home with Homehealth Within: Other - Inpatient Certification Based on my medical assessment, after consideration of the patient's comorbidities, presenting symptoms, or acuity I expect that the services needed warrant INPATIENT care.: Yes I certify that my determination is in accordance with my understanding of [facility]'s requirements for reasonable and necessary INPATIENT services [42 CFR 412.3e].: Yes Medical Necessity: Significant Comorbidiites Make Outpatient Treatment Too Risky, Need Close Monitoring Due to Risk of Patient Decompensation, Need For Continuous Telemetry Monitoring, Risk of Complication if Not Cared For in Hospital, Risk of Diagnosis Which Will Require Inpatient Eval/Care/Monitoring Post Hospital Care: D/C Behavioral Medical Director Documentation - Plan Summary Plan Summary: Repeat Digoxin 0.25 mg IV x 1 dose. Continue all other current medication management. Obtain cardiac consultation with Dr. Guzman for further input. Obtain CBC with Diff, CMP in AM.
[2019-06-19] MEDS: DILTIAZEM HCL 30 MG TABLET PO SCH ×4 (00:08→17:08)
[2019-06-19] MEDS: PANTOPRAZOLE SODIUM 40 MG TABLET.DR PO SCH (05:09)
[2019-06-19] MEDS: INSULIN LISPRO 100 UNIT/ML 3 ML VIAL SUBCUT SCH ×4 (07:44→21:24)
[2019-06-19] MEDS: METOPROLOL SUCCINATE 50 MG TAB.SR.24H PO SCH ×2 (09:19→21:24)
[2019-06-19] MEDS: PREGABALIN 100 MG CAPSULE PO SCH ×2 (09:19→21:24)
[2019-06-19] MEDS: SPIRONOLACTONE 25 MG TABLET PO SCH (09:19)
[2019-06-19] MEDS: FUROSEMIDE 20 MG TABLET PO SCH ×2 (09:19→17:08)
[2019-06-19] MEDS: APIXABAN 5 MG TABLET PO SCH ×2 (09:20→21:24)
[2019-06-19] MEDS: ALLOPURINOL 300 MG TABLET PO SCH (09:20)
[2019-06-19] MEDS: LORATADINE 10 MG TABLET PO SCH (09:20)
--- NOTE | 2019-06-19 17:56 | PDOC PROGRESS REPORT ---
Subjective Progress Note for:: 06/19/19 Subjective:: Patient denied chest pain or difficulty with breathing. His cardiac cath lab radiology technologist continue to demonstrated atrial fibrillation with RVR. He had cardiac consultation by Dr. Guzman earlier today. No nausea, vomiting,or abdominal pain. Reason For Visit: CHRONIC ATRIAL FIBRILLATION WITH RVR Physical Exam Vital Signs: Temp Pulse Resp BP Pulse Ox 97.4 F 42 L 17 129/76 H 97 06/19/19 15:06 06/19/19 15:06 06/19/19 15:06 06/19/19 15:06 06/19/19 15:06 Intake & Output 06/18/19 06/19/19 06/20/19 06:59 06:59 06:59 Intake Total 680 740 360 Balance 680 740 360 Weight 170.8 kg 173.3 kg Physical Exam: General appearance: PRESENT: no acute distress, morbidly obese Head exam: PRESENT: atraumatic, normocephalic Eye exam: PRESENT: conjunctiva pink. ABSENT: pallor, scleral icterus Ear exam: PRESENT: normal external ear exam Mouth exam: PRESENT: moist Respiratory exam: PRESENT: clear to auscultation laura, decreased breath sounds - at lung bases Cardiovascular exam: PRESENT: irregular rhythm, +S1, +S2. ABSENT: diastolic mur mur, systolic murmur GI/Abdominal exam: PRESENT: normal bowel sounds, soft. ABSENT: distended, guar ding, mass, organomegaly, rebound, tenderness Musculoskeletal exam: PRESENT: normal inspection Neurological exam: PRESENT: alert, awake, oriented to person, oriented to place, oriented to time, oriented to situation, CN II-XII grossly intact. ABSENT: motor sensory deficit Psychiatric exam: PRESENT: appropriate affect, normal mood. ABSENT: homicidal ideation, suicidal ideation Skin exam: PRESENT: dry, warm Results Laboratory Results: 06/17/19 06:40 06/17/19 06:40 06/15/19 21:00 Troponin I < 0.012 Impressions: Chest X-Ray 06/15/19 21:15 IMPRESSION: Moderate size pleural-parenchymal abnormality in the right lower chest. Similar to 05/16/2019. New since 02/22/2019. Assessment & Plan - Diagnosis (1) Chronic atrial fibrillation with RVR Is this a current diagnosis for this admission?: Yes (3) Type 2 diabetes mellitus with obesity Is this a current diagnosis for this admission?: Yes (4) CAD S/P percutaneous coronary angioplasty Is this a current diagnosis for this admission?: Yes (5) HTN (hypertension) Qualifiers: Hypertension type: essential hypertension Qualified Code(s): I10 - Essential (primary) hypertension Is this a current diagnosis for this admission?: Yes (6) HLD (hyperlipidemia) Qualifiers: Hyperlipidemia type: unspecified Qualified Code(s): E78.5 - Hyperlipidemia, unspecified Is this a current diagnosis for this admission?: Yes (7) SAMY and COPD overlap syndrome Is this a current diagnosis for this admission?: Yes (8) 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 Is this a current diagnosis for this admission?: Yes (9) Osteoarthritis involving multiple joints on both sides of body Is this a current diagnosis for this admission?: Yes (10) Morbid obesity with BMI of 50.0-59.9, adult Is this a current diagnosis for this admission?: Yes (11) Seasonal allergic rhinitis Qualifiers: Allergic rhinitis trigger: unspecified Qualified Code(s): J30.2 - Other seasonal allergic rhinitis Is this a current diagnosis for this admission?: Yes - Time Time Spent with patient: 25-34 minutes Medications reviewed and adjusted accordingly: Yes Anticipated discharge: Home with Homehealth Within: Other - Inpatient Certification Based on my medical assessment, after consideration of the patient's comorbidities, presenting symptoms, or acuity I expect that the services needed warrant INPATIENT care.: Yes I certify that my determination is in accordance with my understanding of Medicare's requirements for reasonable and necessary INPATIENT services [42 CFR 412.3e].: Yes Medical Necessity: Significant Comorbidiites Make Outpatient Treatment Too Risky, Need Close Monitoring Due to Risk of Patient Decompensation, Need For Continuous Telemetry Monitoring, Risk of Complication if Not Cared For in Hospital, Risk of Diagnosis Which Will Require Inpatient Eval/Care/Monitoring Post Hospital Care: D/C Verification Engineer Documentation - Plan Summary Plan Summary: Stat on Digoxin 0.25 mg po daily, 1st dose now. I discussed case with Dr Guzman. We will keep him over the weekend to improve his rate control since he is high risk for readmission for persistent elevated heart rate on remote patient monitoring program through home health agency.
[2019-06-19] MEDS: DIGOXIN 0.25 MG TABLET PO SCH (18:25)
--- NOTE | 2019-06-19 22:22 | PDOC CONSULTATION ---
Consultation-Blank Consultation: CARDIOLOGY CONSULTATION by Dr. Nandini Robertson on 06/19/2019. The patient is seen in 1500. 60 minutes spent on this patient with more than 50% of time spent in direct patient care REASON FOR CONSULTATION: Patient with atrial fibrillation with fast ventricular response and heart failure. CONSULT REQUESTING PHYSICIAN: Dr. Dennis. HISTORYOF PRESENT ILLNESS: Patient is a 54-year-old male who is morbidly obese, with a history of heart failure, coronary artery disease, chronic atrial fibrillation on chronic anticoagulation admitted with a few days of increasing shortness of breath and PND and orthopnea. Also mild increase in his leg swelling. He also noticed rapid palpitations off and on especially with exertion. Initially the symptoms of shortness of breath or with exertion and subsequently was even at rest. His heart failure monitoring device suggested that the patient's heart rate was elevated and also the patient had fluid retention and was in heart failure. Hence the patient admitted and since the patient received treatment is feeling slightly better. He continues to have chronic orthopnea which is slightly improved. He denies any chest pain or discomfort. There is no bleeding problems or TIA or CVA symptoms. There is no fever chills or rigors. There is no cough or sputum production. There is no the patient although did not have wheezing had generalized chest tightness. No clear-cut anginal symptoms. He in February 2019 and had a IV Lexiscan Cardiolite stress test which showed mild reversible ischemia in the left ventricle apex. His LV ejection fraction was 42%. The patient did not keep appointments in the office, and hence has not had an echocardiogram. Past Medical History Cardiac Medical History: Reports: Atrial Fibrillation, Congestive Heart Failure, Coronary Artery Disease, Myocardial Infarction - x1 2008 or 2009, Hyperlipidema, Hypertension Pulmonary Medical History: Reports: Chronic Obstructive Pulmonary Disease (COPD), Sleep Apnea, on CPAP. Endocrine Medical History: Reports: Diabetes Mellitus Type 2 - insulin- dependent. No thyroid disease. GI Medical History: Reports: Gastroesophageal Reflux Disease. No history of GI bleed. Musculoskeltal Medical History: Reports: Arthritis Psychiatric Medical History: Reports: Depression. Genitourinary: Denies history of chronic kidney disease. STORE STOCK HELP: No history of TIA CVA. Past Surgical History Past Surgical History: Reports: Cardiac Catheterization - w/ stent x1 (2008 or 2009) Social History Information Source: Patient Smoking Status: Never Smoker Frequency of Alcohol Use: Occasional Hx Recreational Drug Use: No Drugs: None Hx Prescription Drug Abuse: No - Advance Directive Resuscitation Status: Full Code the patient states his friend "Bill" is a surrogate healthcare decision maker. Family History Family History: Positive for coronary artery disease, diabetes mellitus, and hypertension. Medication/Allergy Home Medications: Allopurinol [Zyloprim 300 mg Tablet] 300 mg PO DAILY 06/16/19 Apixaban [Eliquis 5 mg Tablet] 5 mg PO Q12 06/16/19 Colchicine [Colcrys 0.6 mg Tablet] 0.6 mg PO BID 06/16/19 Diltiazem HCl [Cardizem Cd 120 mg Capsule] 120 mg PO DAILY 06/16/19 Furosemide [Lasix 20 mg Tablet] 20 mg PO BID 06/16/19 Hydrocodone/Acetaminophen [[place] 5-325 mg Tablet] 1 tab PO BIDP PRN 06/16/19 Irbesartan [Avapro] 150 mg PO DAILY 06/16/19 Levalbuterol Tartrate [Xopenex Hfa] 1 puff IH Q6HP PRN 06/16/19 Metoprolol Succinate [Toprol Xl 50 mg Tab.sr] 50 mg PO BID 06/16/19 Nitroglycerin [Nitrostat 0.4 mg (1/150 Gr) Tabs 25/Bottle] 0.4 mg SL Q5MP PRN 06/16/19 Pregabalin [Lyrica 100 mg Capsule] 100 mg PO Q12 06/16/19 Spironolactone [Aldactone 25 mg Tablet] 25 mg PO DAILY 06/16/19 Umeclidinium Brm/Vilanterol Tr [Anoro Ellipta 62.5-25 Mcg INH] 1 puff IH DAILY 06/16/19 Allergies/Adverse Reactions: fluoxetine [From Prozac] Review of Systems Constitutional: PRESENT: fatigue. ABSENT: chills, fever(s), headache(s), weight gain, weight loss Eyes: ABSENT: visual disturbances Ears: ABSENT: hearing changes Cardiovascular: PRESENT: dyspnea on exertion. ABSENT: chest pain, edema, orthropnea, palpitations Respiratory: ABSENT: cough, hemoptysis Gastrointestinal: ABSENT: abdominal pain, constipation, diarrhea, hematemesis, hematochezia, nausea, vomiting Genitourinary: ABSENT: dysuria, hematuria Musculoskeletal: ABSENT: joint swelling Integumentary: ABSENT: rash, wounds Neurological: ABSENT: abnormal gait, abnormal speech, confusion, dizziness, focal weakness, syncope Psychiatric: ABSENT: anxiety, depression, homidical ideation, suicidal ideation Endocrine: ABSENT: cold intolerance, heat intolerance, menstrual abnormalities, polydipsia, polyuria Hematologic/Lymphatic: ABSENT: easy bleeding, easy bruising, lymphadenopathy. PHYSICAL EXAMINATION: The patient is morbidly obese. In no acute distress he is well-groomed. Selected Entries 06/19/19 06/19/19 06/19/19 15:06 16:00 16:15 Temperature 97.4 F Temperature Oral Source Heart Rate ( 92 Monitors) Respiratory 17 Rate Blood Pressure 129/76 H Blood Pressure 93 Mean BP Location Right Arm BP Position Supine O2 Sat by Pulse 97 Oximetry Fraction of 21 Inspired Oxygen (FIO2) Oxygen Flow 2.00 Rate Oxygen Delivery Room Air Method HEAD: Is atraumatic normocephalic. EYES: Equal round regular reactive to light and accommodation. Extraocular movements are normal. There is no conjunctival pallor. There is no scleral icterus. EARS: Tympanic membranes are intact. External auditory canals are clear.. NOSE: There is no deviated nasal septum. There is no inflammation nasal mucous membrane MOUTH: Mucous membranes of the mouth are moist. There is no ulcers. THROAT: There is no redness of the oropharynx. There is no exudates. NECK: Is supple. There is no JVD. Carotids equal there is no bruit. There is no lymphadenopathy there is no goiter. There is no accessory muscle respiration use. Trachea central there is no goiter. LUNGS: Shows diminished air entry prolonged expiration with no rhonchi or wheezing. There is few bibasilar rales of CHF. Heart S1-S2 is heard. S1 is of variable intensity. There is no S3 gallop. There is no S4 gallop. There is systolic murmur left sternal border and the apex there is no rub. ABDOMEN: Is morbidly obese. There is no hepatosplenomegaly. Bowel sounds are well heard. EXTREMITIES: Femorals are very deep. Femorals are diminished. There is no femoral bruits. Leg pulses are difficult to palpate. There is 1+ pedal edema bilaterally. There is no DVT or cellulitis. There is no calf tenderness. There is no cyanosis or clubbing. STORE STOCK HELP: The patient is conscious awake alert oriented x3 with no focal deficits. PSYCHIATRIC: The patient judgment insight are intact his affect is normal. He does not appear to be depressed at present. Current Medications Generic Name Dose Route Start Last Admin Trade Name Freobed PRN Reason Stop Dose Admin Allopurinol 300 mg 06/17/19 10:00 06/19/19 09:20 Zyloprim 300 Mg Tablet PO 07/17/19 09:59 300 mg DAILY ALEKSANDRA Administration Apixaban 5 mg 06/16/19 22:00 06/19/19 21:24 Eliquis 5 Mg Tablet PO 07/16/19 21:59 5 mg Q12 ALEKSANDRA Administration Dextrose 12.5 gm 06/16/19 08:14 Dextrose Inj 50% Syringe (25 Gm/50 Ml) IV 07/16/19 08:13 PRN PRN FOR BG 50-69 IN ALERT PATIENT Protocol Dextrose 25 gm 06/16/19 08:14 Dextrose Inj 50% Syringe (25 Gm/50 Ml) IV 07/16/19 08:13 PRN PRN PER PROTOCOL Protocol Digoxin 0.25 mg 06/19/19 18:30 06/19/19 18:25 Lanoxin 0.25 Mg Tablet PO 07/19/19 18:29 0.25 mg DAILY ALEKSANDRA Administration Diltiazem HCl 30 mg 06/16/19 08:15 06/19/19 17:08 Cardizem 30 Mg Tablet PO 07/16/19 08:14 30 mg Q6 ALEKSANDRA Administration Furosemide 20 mg 06/17/19 10:00 06/19/19 17:08 Lasix 20 Mg Tablet PO 07/17/19 09:59 20 mg BID ALEKSANDRA Administration Glucagon 1 mg 06/16/19 08:14 Glucagen Inj 1 Mg Vial IM 07/16/19 08:13 PRN PRN Evaluate for BG < 70 Protocol Glucose 15 gm 06/16/19 08:14 Glutose 40% Gel 15 Gm Tube PO 07/16/19 08:13 PRN PRN FOR BG 50-69 IN ALERT PATIENT Protocol Glucose 30 gm 06/16/19 08:14 Glutose 40% Gel 15 Gm Tube PO 07/16/19 08:13 PRN PRN FOR BG < 50 IN ALERT PATIENT Protocol Insulin Human Lispro 0 - 12 unit 06/16/19 11:00 06/19/19 21:24 Humalog Insulin 100 Unit/1 Ml 3 Ml Vial SUBCUT 07/16/19 10:59 Not Given ACHS ALEKSANDRA Protocol Loratadine 10 mg 06/17/19 19:30 06/19/19 09:20 Claritin 10 Mg Tablet PO 07/17/19 19:29 10 mg DAILY ALEKSANDRA Administration Metoprolol Succinate 50 mg 06/16/19 20:00 06/19/19 21:24 Toprol Xl 50 Mg Tab.Sr PO 07/16/19 19:59 50 mg Q12 ALEKSANDRA Administration Nitroglycerin 1 tab 06/16/19 18:18 Nitrostat 0.4 Mg (1/150 Gr) Tabs 25/Bottle SL 07/16/19 18:17 Q5MP PRN FOR CHEST PAIN Pantoprazole Sodium 40 mg 06/17/19 06:00 06/19/19 05:[address] Tablet PO 07/17/19 05:59 40 mg Q6AM ALEKSANDRA Administration Patient Own Medication 1 puff 06/16/19 18:18 Levalbuterol Tartrate [Xopenex Hfa] IH 07/16/19 18:17 .Q6HP PRN SHORTNESS OF BREATH Patient Own Medication 1 puff 06/17/19 10:00 Umeclidinium Brm/Vilanterol Tr [Anoro Ellipta 62.5-25 Mcg Inh] IH 07/17/19 09:59 .DAILY ALEKSANDRA Pregabalin 100 mg 06/16/19 22:00 06/19/19 21:24 Lyrica 100 Mg Capsule PO 07/16/19 21:59 100 mg Q12 ALEKSANDRA Administration Spironolactone 25 mg 06/17/19 10:00 06/19/19 09:19 Aldactone 25 Mg Tablet PO 07/17/19 09:59 25 mg DAILY ALEKSANDRA Administration Discontinued Medications Generic Name Dose Route Start Last Admin Trade Name Freq PRN Reason Stop Dose Admin Digoxin 0.25 mg 06/17/19 19:30 06/17/19 19:35 Lanoxin Inj 0.5 Mg/2 Ml Ampule IV 06/17/19 19:31 0.25 mg NOW ONE Administration Digoxin 0.25 mg 06/18/19 18:24 06/18/19 20:55 Lanoxin Inj 0.5 Mg/2 Ml Ampule IV 06/18/19 18:25 Not Given NOW ONE Digoxin 0.25 mg 06/18/19 20:45 06/18/19 21:35 Lanoxin Inj 0.5 Mg/2 Ml Ampule IV 06/18/19 20:46 0.25 mg NOW ONE Administration Diltiazem HCl 10 mg 06/15/19 21:17 06/15/19 21:32 Cardizem Inj 25 Mg/5 Ml Vial IV 06/15/19 21:18 10 mg NOW ONE Administration Diltiazem HCl 10 mg 06/16/19 00:16 06/16/19 00:33 Cardizem Inj 25 Mg/5 Ml Vial IV 06/16/19 00:17 10 mg NOW ONE Administration Diltiazem HCl 125 mg in 125 mls @ 0 mls/hr 06/16/19 00:16 06/16/19 09:33 Cardizem Rtu Inj 125 Mg-D5w 125 Ml Premix IV 07/16/19 00:15 0 mls/hr CONTINUOUS PRN 0 mls/hr THIS MED IS NOT "PRN" Titration Protocol Titrate Metoprolol Succinate 50 mg 06/17/19 08:00 06/17/19 08:26 Toprol Xl 50 Mg Tab.Sr PO 06/17/19 08:01 50 mg NOW ONE Administration Labs- Entire Visit 06/15/19 06/15/19 06/15/19 21:00 21:00 21:00 WBC 6.1 RBC 4.58 Hgb 13.6 Hct 40.9 MCV 89 MCH 29.7 MCHC 33.2 RDW 14.4 H Plt Count 137 L Lymph % (Auto) 29.9 [place] % (Auto) 6.9 Eos % (Auto) 3.1 Baso % (Auto) 1.1 Absolute Neuts (auto) 3.6 Absolute Lymphs (auto) 1.8 Absolute Monos (auto) 0.4 Absolute Eos (auto) 0.2 Absolute Basos (auto) 0.1 Seg Neutrophils % 59.0 PT 17.8 H INR 1.45 APTT 32.6 Sodium 138.6 Potassium 3.8 Chloride 104 Carbon Dioxide 22 Anion Gap 13 BUN 17 Creatinine 1.14 Est GFR ( Amer) > 60 Est GFR (MDRD) Non-Af > 60 Glucose 189 H POC Glucose Calcium 9.0 Magnesium Total Bilirubin 0.5 Direct Bilirubin 0.2 Neonat Total Bilirubin Not Reportable Neonat Direct Bilirubin Not Reportable Neonat Indirect Bili Not Reportable AST 26 ALT 24 Alkaline Phosphatase 120 Troponin I Total Protein 7.6 Albumin 4.2 Urine Color Urine Appearance Urine pH Ur Specific [place] Urine Protein Urine Glucose (UA) Urine Ketones Urine Blood Urine Nitrite Urine Bilirubin Urine Urobilinogen Ur Leukocyte Esterase Urine WBC (Auto) Urine RBC (Auto) U Hyaline Cast (Auto) Squamous Epi Cells Auto Urine Mucus (Auto) Urine Ascorbic Acid Urine Opiates Screen Urine Methadone Screen Ur Barbiturates Screen Ur Phencyclidine Scrn Ur Amphetamines Screen U Benzodiazepines Scrn Urine Cocaine Screen U Marijuana (THC) Screen 06/15/19 06/15/19 06/15/19 21:00 21:50 21:50 WBC RBC Hgb Hct MCV MCH MCHC RDW Plt Count Lymph % (Auto) [place] % (Auto) Eos % (Auto) Baso % (Auto) Absolute Neuts (auto) Absolute Lymphs (auto) Absolute Monos (auto) Absolute Eos (auto) Absolute Basos (auto) Seg Neutrophils % PT INR APTT Sodium Potassium Chloride Carbon Dioxide Anion Gap BUN Creatinine Est GFR ( Amer) Est GFR (MDRD) Non-Af Glucose POC Glucose Calcium Magnesium Total Bilirubin Direct Bilirubin Neonat Total Bilirubin Neonat Direct Bilirubin Neonat Indirect Bili AST ALT Alkaline Phosphatase Troponin I < 0.012 Total Protein Albumin Urine Color YELLOW Urine Appearance SLIGHTLY-CLOUDY Urine pH 5.0 Ur Specific [place] 1.023 Urine Protein NEGATIVE Urine Glucose (UA) NEGATIVE Urine Ketones NEGATIVE Urine Blood SMALL H Urine Nitrite NEGATIVE Urine Bilirubin NEGATIVE Urine Urobilinogen 2.0 H Ur Leukocyte Esterase LARGE H Urine WBC (Auto) 43 Urine RBC (Auto) 4 U Hyaline Cast (Auto) 10 Squamous Epi Cells Auto 1 Urine Mucus (Auto) RARE Urine Ascorbic Acid NEGATIVE Urine Opiates Screen NEGATIVE Urine Methadone Screen NEGATIVE Ur Barbiturates Screen NEGATIVE Ur Phencyclidine Scrn NEGATIVE Ur Amphetamines Screen NEGATIVE U Benzodiazepines Scrn NEGATIVE Urine Cocaine Screen NEGATIVE U Marijuana (THC) Screen NEGATIVE 06/16/19 06/16/19 06/16/19 08:31 11:52 16:26 WBC RBC Hgb Hct MCV MCH MCHC RDW Plt Count Lymph % (Auto) [place] % (Auto) Eos % (Auto) Baso % (Auto) Absolute Neuts (auto) Absolute Lymphs (auto) Absolute Monos (auto) Absolute Eos (auto) Absolute Basos (auto) Seg Neutrophils % PT INR APTT Sodium Potassium Chloride Carbon Dioxide Anion Gap BUN Creatinine Est GFR ( Amer) Est GFR (MDRD) Non-Af Glucose POC Glucose 145 H 137 H 147 H Calcium Magnesium Total Bilirubin Direct Bilirubin Neonat Total Bilirubin Neonat Direct Bilirubin Neonat Indirect Bili AST ALT Alkaline Phosphatase Troponin I Total Protein Albumin Urine Color Urine Appearance Urine pH Ur Specific [place] Urine Protein Urine Glucose (UA) Urine Ketones Urine Blood Urine Nitrite Urine Bilirubin Urine Urobilinogen Ur Leukocyte Esterase Urine WBC (Auto) Urine RBC (Auto) U Hyaline Cast (Auto) Squamous Epi Cells Auto Urine Mucus (Auto) Urine Ascorbic Acid Urine Opiates Screen Urine Methadone Screen Ur Barbiturates Screen Ur Phencyclidine Scrn Ur Amphetamines Screen U Benzodiazepines Scrn Urine Cocaine Screen U Marijuana (THC) Screen 06/16/19 06/17/19 06/17/19 20:59 06:40 06:40 WBC 5.3 RBC 4.74 Hgb 13.8 Hct 42.2 MCV 89 MCH 29.1 MCHC 32.7 RDW 14.5 H Plt Count 117 L Lymph % (Auto) 35.5 [place] % (Auto) 8.3 Eos % (Auto) 3.9 Baso % (Auto) 0.9 Absolute Neuts (auto) 2.7 Absolute Lymphs (auto) 1.9 Absolute Monos (auto) 0.4 Absolute Eos (auto) 0.2 Absolute Basos (auto) 0.0 Seg Neutrophils % 51.4 PT INR APTT Sodium 139.4 Potassium 4.0 Chloride 105 Carbon Dioxide 24 Anion Gap 10 BUN 15 Creatinine 1.01 Est GFR ( Amer) > 60 Est GFR (MDRD) Non-Af > 60 Glucose 149 H POC Glucose 157 H Calcium 9.2 Magnesium 2.0 Total Bilirubin Direct Bilirubin Neonat Total Bilirubin Neonat Direct Bilirubin Neonat Indirect Bili AST ALT Alkaline Phosphatase Troponin I Total Protein Albumin Urine Color Urine Appearance Urine pH Ur Specific [place] Urine Protein Urine Glucose (UA) Urine Ketones Urine Blood Urine Nitrite Urine Bilirubin Urine Urobilinogen Ur Leukocyte Esterase Urine WBC (Auto) Urine RBC (Auto) U Hyaline Cast (Auto) Squamous Epi Cells Auto Urine Mucus (Auto) Urine Ascorbic Acid Urine Opiates Screen Urine Methadone Screen Ur Barbiturates Screen Ur Phencyclidine Scrn Ur Amphetamines Screen U Benzodiazepines Scrn Urine Cocaine Screen U Marijuana (THC) Screen 06/17/19 06/17/19 06/17/19 07:50 11:39 15:22 WBC RBC Hgb Hct MCV MCH MCHC RDW Plt Count Lymph % (Auto) [place] % (Auto) Eos % (Auto) Baso % (Auto) Absolute Neuts (auto) Absolute Lymphs (auto) Absolute Monos (auto) Absolute Eos (auto) Absolute Basos (auto) Seg Neutrophils % PT INR APTT Sodium Potassium Chloride Carbon Dioxide Anion Gap BUN Creatinine Est GFR ( Amer) Est GFR (MDRD) Non-Af Glucose POC Glucose 142 H 142 H 154 H Calcium Magnesium Total Bilirubin Direct Bilirubin Neonat Total Bilirubin Neonat Direct Bilirubin Neonat Indirect Bili AST ALT Alkaline Phosphatase Troponin I Total Protein Albumin Urine Color Urine Appearance Urine pH Ur Specific [place] Urine Protein Urine Glucose (UA) Urine Ketones Urine Blood Urine Nitrite Urine Bilirubin Urine Urobilinogen Ur Leukocyte Esterase Urine WBC (Auto) Urine RBC (Auto) U Hyaline Cast (Auto) Squamous Epi Cells Auto Urine Mucus (Auto) Urine Ascorbic Acid Urine Opiates Screen Urine Methadone Screen Ur Barbiturates Screen Ur Phencyclidine Scrn Ur Amphetamines Screen U Benzodiazepines Scrn Urine Cocaine Screen U Marijuana (THC) Screen 06/17/19 06/18/19 06/18/19 21:13 08:18 10:51 WBC RBC Hgb Hct MCV MCH MCHC RDW Plt Count Lymph % (Auto) [place] % (Auto) Eos % (Auto) Baso % (Auto) Absolute Neuts (auto) Absolute Lymphs (auto) Absolute Monos (auto) Absolute Eos (auto) Absolute Basos (auto) Seg Neutrophils % PT INR APTT Sodium Potassium Chloride Carbon Dioxide Anion Gap BUN Creatinine Est GFR ( Amer) Est GFR (MDRD) Non-Af Glucose POC Glucose 159 H 148 H 144 H Calcium Magnesium Total Bilirubin Direct Bilirubin Neonat Total Bilirubin Neonat Direct Bilirubin Neonat Indirect Bili AST ALT Alkaline Phosphatase Troponin I Total Protein Albumin Urine Color Urine Appearance Urine pH Ur Specific [place] Urine Protein Urine Glucose (UA) Urine Ketones Urine Blood Urine Nitrite Urine Bilirubin Urine Urobilinogen Ur Leukocyte Esterase Urine WBC (Auto) Urine RBC (Auto) U Hyaline Cast (Auto) Squamous Epi Cells Auto Urine Mucus (Auto) Urine Ascorbic Acid Urine Opiates Screen Urine Methadone Screen Ur Barbiturates Screen Ur Phencyclidine Scrn Ur Amphetamines Screen U Benzodiazepines Scrn Urine Cocaine Screen U Marijuana (THC) Screen 06/18/19 06/18/1906/19/19 15:26 21:16 07:25 WBC RBC Hgb Hct MCV MCH MCHC RDW Plt Count Lymph % (Auto) [place] % (Auto) Eos % (Auto) Baso % (Auto) Absolute Neuts (auto) Absolute Lymphs (auto) Absolute Monos (auto) Absolute Eos (auto) Absolute Basos (auto) Seg Neutrophils % PT INR APTT Sodium Potassium Chloride Carbon Dioxide Anion Gap BUN Creatinine Est GFR ( Amer) Est GFR (MDRD) Non-Af Glucose POC Glucose 167 H 139 H 106 Calcium Magnesium Total Bilirubin Direct Bilirubin Neonat Total Bilirubin Neonat Direct Bilirubin Neonat Indirect Bili AST ALT Alkaline Phosphatase Troponin I Total Protein Albumin Urine Color Urine Appearance Urine pH Ur Specific [place] Urine Protein Urine Glucose (UA) Urine Ketones Urine Blood Urine Nitrite Urine Bilirubin Urine Urobilinogen Ur Leukocyte Esterase Urine WBC (Auto) Urine RBC (Auto) U Hyaline Cast (Auto) Squamous Epi Cells Auto Urine Mucus (Auto) Urine Ascorbic Acid Urine Opiates Screen Urine Methadone Screen Ur Barbiturates Screen Ur Phencyclidine Scrn Ur Amphetamines Screen U Benzodiazepines Scrn Urine Cocaine Screen U Marijuana (THC) Screen 06/19/19 06/19/19 06/19/19 11:21 15:33 21:16 WBC RBC Hgb Hct MCV MCH MCHC RDW Plt Count Lymph % (Auto) [place] % (Auto) Eos % (Auto) Baso % (Auto) Absolute Neuts (auto) Absolute Lymphs (auto) Absolute Monos (auto) Absolute Eos (auto) Absolute Basos (auto) Seg Neutrophils % PT INR APTT Sodium Potassium Chloride Carbon Dioxide Anion Gap BUN Creatinine Est GFR ( Amer) Est GFR (MDRD) Non-Af Glucose POC Glucose 171 H 174 H 162 H Calcium Magnesium Total Bilirubin Direct Bilirubin Neonat Total Bilirubin Neonat Direct Bilirubin Neonat Indirect Bili AST ALT Alkaline Phosphatase Troponin I Total Protein Albumin Urine Color Urine Appearance Urine pH Ur Specific [place] Urine Protein Urine Glucose (UA) Urine Ketones Urine Blood Urine Nitrite Urine Bilirubin Urine Urobilinogen Ur Leukocyte Esterase Urine WBC (Auto) Urine RBC (Auto) U Hyaline Cast (Auto) Squamous Epi Cells Auto Urine Mucus (Auto) Urine Ascorbic Acid Urine Opiates Screen Urine Methadone Screen Ur Barbiturates Screen Ur Phencyclidine Scrn Ur Amphetamines Screen U Benzodiazepines Scrn Urine Cocaine Screen U Marijuana (THC) Screen Chest X-Ray 06/15/19 21:15 IMPRESSION: Moderate size pleural-parenchymal abnormality in the right lower chest. Similar to 05/16/2019. New since 02/22/2019. AFIB0] . ATRIAL FIBRILLATION [MVSPC] . MULTIPLE PREMATURE COMPLEXES, VENT [[id number]] . ANTERIOR INFARCT, AGE INDETERMINATE IMPRESSION/RECOMMENDATION: 1. 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 Continue diuretics. Continue CARMEN inhibitors and when increasing the patient's Toprol-XL. Continue spironolactone. 2. Atrial Fibrillation: The patient is currently on Cardizem. Would recommend discontinue the patient's Cardizem place the patient on a beta-kay. Currently the patient is on Cardizem drip. We will wean this off and increase the patient's beta-kay. Continue Eliquis. 3. Hypertension: Blood pressure well controlled. 4. Diabetes mellitus: Continue his antidiabetic medication and Accu-Cheks. 5. Chronic obstructive pulmonary disease: At present stable at baseline with no evidence of acute exacerbation. 6. Sleep apnea: Continue CPAP/BiPAP. 7. Coronary artery disease: At present no anginal symptoms continue current medications we will get the patient's records from [facility]. 8. Old myocardial infarction: In view of this will recommend stopping the patient's Cardizem and place the patient on beta-kay. 9. Morbid obesity: Later would recommend the patient have a weight loss program. 10. Cardiomyopathy Medications reviewed medication adjusted management plan discussed with Dr. Hayes. Medical decision making is of high complexity. 60 minutes spent on this patient, with more than 50% time spent in direct patient care. Will follow.
[2019-06-20] MEDS: DILTIAZEM HCL 30 MG TABLET PO SCH ×5 (00:27→23:57)
[2019-06-20] MEDS: PANTOPRAZOLE SODIUM 40 MG TABLET.DR PO SCH (05:28)
[2019-06-20] MEDS: INSULIN LISPRO 100 UNIT/ML 3 ML VIAL SUBCUT SCH ×4 (08:58→21:23)
[2019-06-20] MEDS: FUROSEMIDE 20 MG TABLET PO SCH ×2 (09:25→17:07)
[2019-06-20] MEDS: SPIRONOLACTONE 25 MG TABLET PO SCH (09:25)
[2019-06-20] MEDS: PREGABALIN 100 MG CAPSULE PO SCH ×2 (09:28→21:24)
[2019-06-20] MEDS: METOPROLOL SUCCINATE 50 MG TAB.SR.24H PO SCH ×2 (09:28→21:24)
[2019-06-20] MEDS: ALLOPURINOL 300 MG TABLET PO SCH (09:28)
[2019-06-20] MEDS: APIXABAN 5 MG TABLET PO SCH ×2 (09:28→21:24)
[2019-06-20] MEDS: DIGOXIN 0.25 MG TABLET PO SCH (09:28)
[2019-06-20] MEDS: LORATADINE 10 MG TABLET PO SCH (09:28)
--- NOTE | 2019-06-20 17:55 | PDOC PROGRESS REPORT ---
Subjective Progress Note for:: 06/20/19 Subjective:: Patient was admitted for the management of atrial fibrillation with rapid ventricular response,, the medication has been adjusted Reason For Visit: CHRONIC ATRIAL FIBRILLATION WITH RVR Physical Exam Vital Signs: Temp Pulse Resp BP Pulse Ox 97.9 F 87 16 105/52 L 98 06/20/19 15:39 06/20/19 15:39 06/20/19 15:39 06/20/19 15:39 06/20/19 15:39 Intake & Output 06/19/19 06/20/19 06/21/19 06:59 06:59 06:59 Intake Total 740 840 525 Output Total 1 Balance 740 839 525 Weight 173.3 kg General appearance: PRESENT: no acute distress Eye exam: PRESENT: PERRLA Respiratory exam: PRESENT: clear to auscultation laura Cardiovascular exam: PRESENT: +S1, +S2 Neurological exam: PRESENT: alert, CN II-XII grossly intact Results Laboratory Results: 06/17/19 06:40 06/17/19 06:40 06/15/19 21:00 Troponin I < 0.012 Impressions: Chest X-Ray 06/15/19 21:15 IMPRESSION: Moderate size pleural-parenchymal abnormality in the right lower chest. Similar to 05/16/2019. New since 02/22/2019. 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
[2019-06-20 18:49] LABS: ALBUMIN 4.1 g/dL (3.5-5.0); ALKALINE PHOSPHATASE 115 U/L (38-126); ANION GAP 11 (5-19); ASPARTATE AMINO TRANSFERASE 33 U/L (17-59); BILIRUBIN,DIRECT 0.2 mg/dL (0.0-0.4); BILIRUBIN,TOTAL 0.7 mg/dL (0.2-1.3); BLOOD UREA NITROGEN 16 mg/dL (7-20); CALCIUM 9.2 mg/dL (8.4-10.2); CARBON DIOXIDE 27 mmol/L (22-30); CHLORIDE 100 mmol/L (98-107); GLUCOSE 169 mg/dL (75-110); POTASSIUM 4.6 mmol/L (3.6-5.0); TOTAL PROTEIN 7.6 g/dL (6.3-8.2)
[2019-06-21] MEDS: DILTIAZEM HCL 30 MG TABLET PO SCH ×2 (05:32→12:52)
[2019-06-21] MEDS: PANTOPRAZOLE SODIUM 40 MG TABLET.DR PO SCH (05:32)
[2019-06-21] MEDS: INSULIN LISPRO 100 UNIT/ML 3 ML VIAL SUBCUT SCH ×3 (08:17→16:07)
[2019-06-21] MEDS: PREGABALIN 100 MG CAPSULE PO SCH (10:09)
[2019-06-21] MEDS: APIXABAN 5 MG TABLET PO SCH (10:09)
[2019-06-21] MEDS: LORATADINE 10 MG TABLET PO SCH (10:09)
[2019-06-21] MEDS: ALLOPURINOL 300 MG TABLET PO SCH (10:09)
[2019-06-21] MEDS: METOPROLOL SUCCINATE 50 MG TAB.SR.24H PO SCH (10:10)
[2019-06-21] MEDS: DIGOXIN 0.25 MG TABLET PO SCH (10:10)
[2019-06-21] MEDS: FUROSEMIDE 20 MG TABLET PO SCH (10:10)
[2019-06-21] MEDS: SPIRONOLACTONE 25 MG TABLET PO SCH (10:11)
--- NOTE | 2019-06-21 15:32 | PDOC DISCHARGE SUMMARY ---
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 Is this a current diagnosis for this admission?: Yes (5) HTN (hypertension) Is this a current diagnosis for this admission?: Yes (6) Morbid obesity Is this a current diagnosis for this admission?: Yes - Additional Information Resuscitation Status: Full Code Discharge Diet: Cardiac, Diabetic Discharge Activity: Activity As Tolerated, Balance Activity w/Rest, Weigh Daily Prescriptions: Digoxin [Lanoxin 0.25 mg Tablet] 0.25 mg PO DAILY #30 tablet Home Medications: Allopurinol [Zyloprim 300 mg Tablet] 300 mg PO DAILY 06/16/19 Apixaban [Eliquis 5 mg Tablet] 5 mg PO Q12 06/16/19 Colchicine [Colcrys 0.6 mg Tablet] 0.6 mg PO BID 06/16/19 Diltiazem HCl [Cardizem Cd 120 mg Capsule] 120 mg PO DAILY 06/16/19 Furosemide [Lasix 20 mg Tablet] 20 mg PO BID 06/16/19 Hydrocodone/Acetaminophen [Creole 5-325 mg Tablet] 1 tab PO BIDP PRN 06/16/19 Irbesartan [Avapro] 150 mg PO DAILY 06/16/19 Levalbuterol Tartrate [Xopenex Hfa] 1 puff IH Q6HP PRN 06/16/19 Metoprolol Succinate [Toprol Xl 50 mg Tab.sr] 50 mg PO BID 06/16/19 Nitroglycerin [Nitrostat 0.4 mg (1/150 Gr) Tabs 25/Bottle] 0.4 mg SL Q5MP PRN 06/16/19 Pregabalin [Lyrica 100 mg Capsule] 100 mg PO Q12 06/16/19 Spironolactone [Aldactone 25 mg Tablet] 25 mg PO DAILY 06/16/19 Umeclidinium Brm/Vilanterol Tr [Anoro Ellipta 62.5-25 Mcg INH] 1 puff IH DAILY 06/16/19 Digoxin [Lanoxin 0.25 mg Tablet] 0.25 mg PO DAILY #30 tablet 06/21/19 History of Present Illness History of Present Illness: DAVID PHILLIPS is a 54 year old maleHe presented to the emergency room on 06/16/2019 for evaluation of progressive worsening shortness of breath, palpitation. He stated that his symptoms have been ongoing for several days, he has a remote monitoring device which indicated that he has persistent tachyarrhythmias, he was advised that he needed to seek immediate medical attention. He had similar presentation in the past, he was recently hospitalized for the same problem, is comorbid conditions include hypertension, hyperlipidemia, CAD, diastolic congestive heart failure Hospital Course Hospital Course: Patient was admitted for the management of persistent rapid ventricular response in the setting of chronic atrial fibrillation. He was treated initially on Cardizem infusion, is medications was adjusted, presently on beta-kay metoprolol, the heart rate control was achieved with combination of beta-blocke r, calcium channel kay, and on this admission digoxin was added to the drug regimen. He was evaluated by the eap counselor Dr. Smith. Dr. Smith is of the opinion that patient could be discharged home today though patient also wants to go home today. He was particularly critical of the bed that he sleeps on. He is very obese patient, the body mass index is 53. Physical Exam Vital Signs: Temp Pulse Resp BP Pulse Ox 97.6 F 97 18 120/55 L 98 06/21/19 13:00 06/21/19 13:00 06/21/19 13:00 06/21/19 13:00 06/21/19 13:00 Intake & Output 06/20/19 06/21/19 06/22/19 06:59 06:59 06:59 Intake Total 840 1245 Output Total 1 Balance 839 1245 Weight 177.9 kg General appearance: PRESENT: no acute distress, well-developed, well-nourished Head exam: PRESENT: atraumatic, normocephalic Eye exam: PRESENT: conjunctiva pink, EOMI, PERRLA Ear exam: PRESENT: normal external ear exam Mouth exam: PRESENT: moist, tongue midline Neck exam: PRESENT: full ROM Respiratory exam: PRESENT: clear to auscultation laura Cardiovascular exam: PRESENT: RRR, +S1, +S2 Pulses: PRESENT: normal dorsalis pedis pul, +2 pedal pulses bilateral Vascular exam: PRESENT: normal capillary refill GI/Abdominal exam: PRESENT: normal bowel sounds, soft Rectal exam: PRESENT: deferred Neurological exam: PRESENT: alert, CN II-XII grossly intact Psychiatric exam: PRESENT: appropriate affect, normal mood Skin exam: PRESENT: dry, intact, warm. ABSENT: cyanosis, rash Results Laboratory Results: 06/17/19 06:40 06/20/19 18:05 06/20/19 18:05 Sodium 138.1 Potassium 4.6 Chloride 100 Carbon Dioxide 27 Anion Gap 11 BUN 16 Creatinine 1.08 Est GFR ( Amer) > 60 Glucose 169 H Calcium 9.2 Total Bilirubin 0.7 AST 33 Alkaline Phosphatase 115 Total Protein 7.6 Albumin 4.1 06/15/19 21:00 Troponin I < 0.012 Impressions: Chest X-Ray 06/15/19 21:15 IMPRESSION: Moderate size pleural-parenchymal abnormality in the right lower chest. Similar to 05/16/2019. New since 02/22/2019. Qualifiers - * PATIENT BEING DISCHARGED WITH ANY OF THE FOLLOWING DIAGNOSIS: No VTE patient discharged on overlapping Therapy?: No Reason(s) for not prescribing Overlap Therapy:: Not indicated Stroke Pt being discharged on Anti-thrombolytic therapy?: No Reason(s) for not prescribing Anti-thrombolytic therapy:: Not indicated Stroke Pt being discharged on Anti-coagulation therapy?: No Reason(s) for not prescribing Anti-coagulation therapy:: Not indicated Stroke Pt being discharged on Statins?: No Reason(s) for not prescribing Statins therapy:: Not indicated VT Pt being discharged on Aspirin therapy?: No Reason(s) for not prescribing Aspirin therapy:: Not indicated VT Pt being discharged on Statins?: No Reason(s) for not prescribing Statin therapy:: Not indicated VT Pt discharged ACEI/ARBS?: No Reason(s) for not prescribing ACEI/ARBS:: Not indicated Acute Heart Failure - Is this a Heart Failure Patient?: No Follow-up Appointment scheduled within 7 days?: Yes
[2019-06-21 15:36] VITALS: BP 138/99
== END 2019-06-21 16:29 | disposition home health service (06) | DRG 309 ==
LOC: ER 20:37 → EH 06-16 01:33 → 3S 06-16 02:49
PROVIDERS: ADMIT Internal Medicine Geriatric Medicine; ATTEND Internal Medicine Geriatric Medicine
DX: I48.2 Chronic atrial fibrillation (principal); Z68.43 Body mass index [BMI] 50.0-59.9, adult; I50.32 Chronic diastolic (congestive) heart failure; I25.10 Atherosclerotic heart disease of native coronary artery without angina pectoris; E11.9 Type 2 diabetes mellitus without complications; I11.0 Hypertensive heart disease with heart failure; Z88.8 Allergy status to other drugs, medicaments and biological substances; K21.9 Gastro-esophageal reflux disease without esophagitis; F32.9 Major depressive disorder, single episode, unspecified; Z79.4 Long term (current) use of insulin; M1A.9XX0 Chronic gout, unspecified, without tophus (tophi); J30.2 Other seasonal allergic rhinitis; E66.01 Morbid (severe) obesity due to excess calories; Z79.02 Long term (current) use of antithrombotics/antiplatelets; J44.9 Chronic obstructive pulmonary disease, unspecified; G47.30 Sleep apnea, unspecified; M19.90 Unspecified osteoarthritis, unspecified site; Z95.5 Presence of coronary angioplasty implant and graft; Z79.899 Other long term (current) drug therapy; Z95.818 Presence of other cardiac implants and grafts
CPT/HCPCS: 36415; 71045; 80048; 80053; 80307; 81001; 82962; 83735; 84484; 85025; 85610; 85730; 93005; 93010; 94660; 96365; 96376; 99285; J1160; J3490

== ENCOUNTER → 2019-07-08 | Outpatient (CLI) | payer MEDICARE, MEDICAID | LOC: OD 07:15 | PROVIDERS: ATTEND Internal Medicine Pulmonary Disease | DX: J90 Pleural effusion, not elsewhere classified (principal); E66.2 Morbid (severe) obesity with alveolar hypoventilation; Z53.8 Procedure and treatment not carried out for other reasons ==

== ENCOUNTER → 2019-07-13 | Outpatient (CLI) | payer MEDICARE, MEDICAID ==
[2019-07-13 05:55] LABS: ARTERIAL BLOOD FIO2 ROOM AIR; ARTERIAL BLOOD H2CO3 1.15 mmol/L (1.05-1.35); ARTERIAL BLOOD HCO3 22.6 mmol/L (20-24); ARTERIAL BLOOD O2 SATURATION 78.2 % (94-98); ARTERIAL BLOOD PCO2 38.3 mmHg (35-45); ARTERIAL BLOOD PH 7.39 (7.35-7.45); ARTERIAL BLOOD PO2 42.7 mmHg (80-100); ARTERIAL BLOOD TOTAL CO2 23.8 mmol/L (23-27)
== END ==
LOC: LAB 05:37
PROVIDERS: ATTEND Internal Medicine Pulmonary Disease
DX: J90 Pleural effusion, not elsewhere classified (principal); E66.2 Morbid (severe) obesity with alveolar hypoventilation
CPT/HCPCS: 36600; 82803

== ENCOUNTER → 2019-07-14 | Outpatient (CLI) | payer MEDICARE, MEDICAID ==
--- NOTE | 2019-07-14 09:22 | RADIOLOGY REPORT (SQ) ---
EXAM DESCRIPTION: CHEST PA/LATERAL COMPLETED DATE/TIME: 07/14/2019 7:46 am REASON FOR STUDY: PLEURAL EFFUSION, NOT ELSEWHERE CLASSIFIED COMPARISON: AP view of the chest from 06/15/2019 EXAM PARAMETERS: NUMBER OF VIEWS: two views TECHNIQUE: Digital Frontal and Lateral radiographic views of the chest acquired. RADIATION DOSE: NA LIMITATIONS: none FINDINGS: LUNGS AND PLEURA: No consolidation, sizeable pleural effusion or pneumothorax. MEDIASTINUM AND HILAR STRUCTURES: Stable mediastinal and hilar contours. HEART AND VASCULAR STRUCTURES: Stable cardiomegaly. The pulmonary vasculature is within normal limit s given the low inspiratory lung volumes. BONES: No acute findings. HARDWARE: None in the chest. OTHER: Eventration of the right hemidiaphragm. IMPRESSION: Cardiomegaly without a superimposed acute cardiopulmonary process. TECHNICAL DOCUMENTATION: JOB ID: [id number] [employer]- All Rights Reserved Reading location - IP/workstation name: [email or web address]
== END ==
LOC: OD 07:17
PROVIDERS: ATTEND Internal Medicine Pulmonary Disease
DX: J90 Pleural effusion, not elsewhere classified (principal); I51.7 Cardiomegaly
CPT/HCPCS: 71046

== ENCOUNTER 2019-07-31 05:40 | Emergency (ER) | payer MEDICARE, MEDICAID ==
[2019-07-31] MEDS ORDERED: LIDOCAINE 2% VISCOUS SOLN 20 ML UDCUP PO ONE (08:55)
[2019-07-31] MEDS ORDERED: CLINDAMYCIN 600 MG/D5W RTU 600 MG/50 ML RTUPB IV ONE (08:55)
[2019-07-31] MEDS ORDERED: DEXAMETHASONE SOD PHOS INJ 10 MG/1 ML VIAL IV ONE (08:55)
--- NOTE | 2019-07-31 08:57 | ER Document Report ---
ED ENT - General Chief Complaint: Sore Throat Stated Complaint: CONGESTED,SORE THROAT Time Seen by Provider: 07/31/19 08:19 Primary Care Provider: DELPHINE PARKER [Provider Group] - 08/03/19 KIRK BEAULIEU MD [ACTIVE STAFF] - 08/03/19 Mode of Arrival: Ambulatory Information source: Patient Notes: Patient presents complaining of sore throat for the past 2 days with sinus drainage. Patient reports subjective fever. No ear pain, no nausea or vomiting. Patient complains of pain with swallowing. TRAVEL OUTSIDE OF THE [place] IN LAST 30 DAYS: No - HPI Patient complains to provider of: Throat problem Onset: Other - 2 days Onset/Duration: Persistent Quality of pain: Achy Pain Level: 3 Location of pain: Throat Associated symptoms: Chills, Congestion, Sore throat. denies: Cough, Fever Similar symptoms previously: No Recently seen / treated by doctor: No - Related Data Allergies/Adverse Reactions: fluoxetine [From Prozac] Allergy (Verified 04/28/19 14:33) Home Medications: heart med. Eliquis. HTN med Past Medical History - General Information source: Patient - Social History Smoking Status: Never Smoker Chew tobacco use (# tins/day): No Frequency of alcohol use: None Drug Abuse: None Lives with: Spouse/Significant other Family History: None, Reviewed & Not Pertinent Patient has suicidal ideation: No Patient has homicidal ideation: No - Past Medical History Cardiac Medical History: Reports: Hx Atrial Fibrillation, Hx Congestive Heart Failure, Hx Coronary Artery Disease, Hx Heart Attack - x1 2008 or 2009, Hx Hypercholesterolemia, Hx Hypertension Pulmonary Medical History: Reports: Hx COPD, Hx Sleep Apnea Endocrine Medical History: Reports: 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, Hx Diabetes Mellitus Type 2 - insulin-dependent Renal/ Medical History: Denies: Hx Peritoneal Dialysis GI Medical History: Reports: Hx Gastroesophageal Reflux Disease Musculoskeletal Medical History: Reports Hx Arthritis Psychiatric Medical History: Reports: Hx Depression Past Surgical History: Reports: Hx Cardiac Catheterization - w/ stent x1 (2008 or 2009) - Immunizations Immunizations up to date: Yes Hx Diphtheria, Pertussis, Tetanus Vaccination: Yes Review of Systems - Review of Systems Constitutional: Chills, Fever - Subjective EENT: Nose congestion, Throat pain Cardiovascular: No symptoms reported. denies: Chest pain Respiratory: No symptoms reported. denies: Cough, Short of breath Gastrointestinal: No symptoms reported. denies: Diarrhea, Nausea, Vomiting Genitourinary: No symptoms reported Male Genitourinary: No symptoms reported Musculoskeletal: No symptoms reported Skin: No symptoms reported Hematologic/Lymphatic: No symptoms reported Neurological/Psychological: No symptoms reported Physical Exam - Vital signs Vitals: Temp Pulse Resp BP Pulse Ox 98.0 F 96 18 134/73 H 97 07/31/19 05:51 07/31/19 05:51 07/31/19 05:51 07/31/19 05:51 07/31/19 05:51 - General General appearance: Appears well, Alert In distress: None - HEENT Head: Normocephalic, Atraumatic Eyes: Normal Conjunctiva: Normal Ears: Normal External canal: Normal Mouth/Lips: Normal Mucous membranes: Normal Pharynx: Erythema, Tonsillar hypertrophy - left, Other - Patient with a muffled sounding voice. No: Exudate, Post nasal drainage Neck: Lymphadenopathy - Left-sided - Respiratory Respiratory status: No respiratory distress Chest status: Nontender Breath sounds: Normal Chest palpation: Normal - Cardiovascular Rhythm: Regular Heart sounds: S1 appreciated, S2 appreciated - Back Back: Normal, Nontender - Extremities General upper extremity: Normal inspection, Normal ROM General lower extremity: Normal inspection, Normal ROM - Neurological Neuro grossly intact: Yes Ariel Coma Scale Eye Opening: Spontaneous Ariel Coma Scale Verbal: Oriented Ariel Coma Scale Motor: Obeys Commands Ariel Coma Scale Total: 15 - Psychological Associated symptoms: Normal affect, Normal mood - Skin Skin Temperature: Warm Skin Moisture: Dry Skin Color: Normal Course - Re-evaluation Re-evalutation: 07/31/19 11:54 Dr Rosen received phone call from radiologist regarding patient's CT scan report. Dr. Rosen states that the radiologist reported that patient appeared to have an early developing abscess. Review of CT report dictation states that patient has peritonsillar abscess. Patient without any fever or leukocytosis. Serum glucose was 133. No concern for DKA. Patient able to tolerate fluids. 07/31/19 12:21 Consulted with patient's primary doctor regarding findings. Patient's primary care provider is requesting that patient be transferred to a facility that has ENT services on so that they can drain his abscess. Discussed with patient the concern about him having an abscess that will require drainage at this time. Patient advised that his primary doctor would like to have him transferred to another facility that has ENT services on staff. Patient states that he is feeling better and that he does not want to be transferred to any facility at this time. Patient states that he is too tired and hungry and just wants to go home sleep and eat. Patient states he will follow-up with his doctor first thing on Saturday as their office closes at noon today. Patient advised that he will need to see an ENT doctor for further evaluation. Patient advised that he would be leaving AGAINST MEDICAL ADVICE. Patient advised that his condition could be potentially life-threatening where his swelling and infection worsen causing him to have difficulty breathing. Patient acknowledges this risks and prefers to leave AGAINST MEDICAL ADVICE. Patient is willing to stay and wait for discharge paperwork and prescription for the antibiotics. 07/31/19 12:26 The patient has decided not to proceed with further recommended testing or treatment to determine the cause of her symptoms. The risk and alternatives to the recommendation were discussed the patient voiced understanding. The patient appears clinically to have the capacity to make this decision. The patient was instructed that they could return to the ER at any time to complete the testing or treatment. Attempted to contact patient's primary doctor to update them regarding patient's decision to leave AMA, offset second press operator left message for return call. - Vital Signs Vital signs: Temp Pulse Resp BP Pulse Ox 97.3 F 95 18 126/82 H 95 07/31/19 12:35 07/31/19 12:35 07/31/19 12:35 07/31/19 12:35 07/31/19 12:35 - Laboratory Result Diagrams: 07/31/19 09:10 07/31/19 09:10 Laboratory results interpreted by me: 07/31/19 07/31/19 09:10 09:10 RDW 16.9 H Plt Count 127 L Glucose 133 H Total Bilirubin 2.0 H Direct Bilirubin 0.5 H Labs- Entire Visit 07/31/19 07/31/19 07/31/19 09:10 09:10 09:10 WBC 9.4 RBC 5.11 Hgb 14.9 Hct 45.4 MCV 89 MCH 29.1 MCHC 32.8 RDW 16.9 H Plt Count 127 L Lymph % (Auto) 22.1 [place] % (Auto) 9.3 Eos % (Auto) 0.6 Baso % (Auto) 0.5 Absolute Neuts (auto) 6.4 Absolute Lymphs (auto) 2.1 Absolute Monos (auto) 0.9 Absolute Eos (auto) 0.1 Absolute Basos (auto) 0.1 Seg Neutrophils % 67.5 Sodium 142.1 Potassium 4.2 Chloride 104 Carbon Dioxide 26 Anion Gap 12 BUN 15 Creatinine 1.15 Est GFR ( Amer) > 60 Est GFR (MDRD) Non-Af > 60 Glucose 133 H Calcium 9.2 Total Bilirubin 2.0 H Direct Bilirubin 0.5 H Neonat Total Bilirubin Not Reportable Neonat Direct Bilirubin Not Reportable Neonat Indirect Bili Not Reportable AST 28 ALT 31 Alkaline Phosphatase 101 Total Protein 7.8 Albumin 4.0 Monotest NEGATIVE Group A Strep Rapid 07/31/19 09:10 WBC RBC Hgb Hct MCV MCH MCHC RDW Plt Count Lymph % (Auto) [place] % (Auto) Eos % (Auto) Baso % (Auto) Absolute Neuts (auto) Absolute Lymphs (auto) Absolute Monos (auto) Absolute Eos (auto) Absolute Basos (auto) Seg Neutrophils % Sodium Potassium Chloride Carbon Dioxide Anion Gap BUN Creatinine Est GFR ( Amer) Est GFR (MDRD) Non-Af Glucose Calcium Total Bilirubin Direct Bilirubin Neonat Total Bilirubin Neonat Direct Bilirubin Neonat Indirect Bili AST ALT Alkaline Phosphatase Total Protein Albumin Monotest Group A Strep Rapid NEGATIVE - Diagnostic Test Radiology reviewed: Reports reviewed Discharge - Discharge Clinical Impression: Sore throat, Peritonsillar abscess Condition: Fair Disposition: AGAINST MEDICAL ADVICE Instructions: Clindamycin ([facility]), Alice-Tonsillar Abscess ([facility]), Steroid Medication Additional Instructions: Return immediately for any new or worsening symptoms, or call 911 if symptoms become severe. Return immediately for any increased pain, fever, difficulty breathing, difficulty swallowing, any lack of improvement, or any concerning symptoms Followup with your primary care provider, call today to make a follow-up appointment. Your primary doctor will need to get an ENT (ear,nose and throat) referral for you. You will need to see an ENT doctor so that they can drain the infection in your throat. Prescriptions: Clindamycin HCl [Cleocin Hcl] 300 mg PO QID #28 capsule Referrals: KIRK BEAULIEU MD [ACTIVE STAFF] - 08/03/19 [facility] [Provider Group] - 08/03/19
[2019-07-31 09:38] LABS: ABSOLUTE BASOPHILS # (AUTO) 0.1 10^3/uL (0.0-0.2); ABSOLUTE EOSINOPHILS # (AUTO) 0.1 10^3/uL (0.0-0.6); ABSOLUTE LYMPHOCYTES (AUTO) 2.1 10^3/uL (0.5-4.7); ABSOLUTE MONOCYTES (AUTO) 0.9 10^3/uL (0.1-1.4); ABSOLUTE NEUT (AUTO) 6.4 10^3/uL (1.7-8.2); BASOPHILS % (AUTO) 0.5 % (0-2); EOSINOPHILS % (AUTO) 0.6 % (0-6); HEMATOCRIT 45.4 % (37.9-51.0); HEMOGLOBIN 14.9 g/dL (13.5-17.0); LYMPHOCYTES % (AUTO) 22.1 % (13-45); MEAN CORPUSCULAR HEMOGLOBIN 29.1 pg (27.0-33.4); MEAN CORPUSCULAR HGB CONC 32.8 g/dL (32.0-36.0); MEAN CORPUSCULAR VOLUME 89 fl (80-97); MONOCYTES % (AUTO) 9.3 % (3-13); PLATELET COUNT 127 10^3/uL (150-450); RED BLOOD COUNT 5.11 10^6/uL (4.35-5.55); RED CELL DISTRIBUTION WIDTH 16.9 % (11.5-14.0); SEGMENTED NEUTROPHILS % (AUTO) 67.5 % (42-78); TOTAL CELLS COUNTED % (AUTO) 100 %; WHITE BLOOD COUNT 9.4 10^3/uL (4.0-10.5)
[2019-07-31 10:00] LABS: ALKALINE PHOSPHATASE 101 U/L (38-126); ANION GAP 12 (5-19); ASPARTATE AMINO TRANSFERASE 28 U/L (17-59); BILIRUBIN,DIRECT 0.5 mg/dL (0.0-0.4); BLOOD UREA NITROGEN 15 mg/dL (7-20); CALCIUM 9.2 mg/dL (8.4-10.2); CARBON DIOXIDE 26 mmol/L (22-30); CHLORIDE 104 mmol/L (98-107); GLUCOSE 133 mg/dL (75-110); POTASSIUM 4.2 mmol/L (3.6-5.0); TOTAL PROTEIN 7.8 g/dL (6.3-8.2)
--- NOTE | 2019-07-31 11:52 | RADIOLOGY REPORT (SQ) ---
EXAM DESCRIPTION: CT SOFT TISSUE NECK WITH COMPLETED DATE/TIME: 07/31/2019 11:28 am REASON FOR STUDY: muffled voice, throat swelling COMPARISON: None. TECHNIQUE: Post IV contrasted scanning from skull base through lung apices with review of bone, soft tissue and lung windows. Reconstructed coronal and sagittal MPR images reviewed. All images stored on PACS. All CT scanners at this facility use dose modulation, iterative reconstruction, and/or weight based d osing when appropriate to reduce radiation dose to as low as reasonably achievable (ALARA). [facility]: Dose Right [facility]: CareDose [facility]: Dose Right [facility]: Teradose 4D [facility]: [employer] CONTRAST TYPE AND DOSE: 75 mL Omnipaque 350- low osmolar. RENAL FUNCTION: Creatinine 1.15 mg / dL RADIATION DOSE: . LIMITATIONS: None. FINDINGS: SKULL BASE: Intact. MAJOR SALIVARY GLANDS: No gross abnormality of the parotid and submandibular glands. LYMPHADENOPATHY: Prominent left-sided level II and III lymph nodes that measure up to 9 mm in short a xis diameter. MUCOSAL MASSES OR ASYMMETRY: Asymmetric enlargement of the left palate seen tonsil with a focal hypod ense collection that measures approximately 1.8 x 1.5 cm. The fat planes in the adjacent parapharyng eal space is preserved. There is no fluid in the retropharyngeal space. LARYNX/CORDS: No abnormal findings. VASCULAR STRUCTURES: Patent. LUNG APICES: Limited evaluation due to motion artifact. BONES: Intact. THYROID: The thyroid gland is heterogeneous. PARANASAL SINUSES: Clear. OTHER: No other finding. IMPRESSION: Findings as above consistent with a left-sided acute tonsillitis with an 1.8 x 1.5 cm pe ritonsillar abscess. COMMENT: This report was called to SAM ARTEAGA NP at11:46 on 07/31/2019. TECHNICAL DOCUMENTATION: JOB ID: [id number] Quality ID # [id number]: Final reports with documentation of one or more dose reduction techniques (e.g., Au tomated exposure control, adjustment of the mA and/or kV according to patient size, use of iterative reconstruction technique) 2010 [employer]- All Rights Reserved Reading location - IP/workstation name: [email or web address]
[2019-07-31 12:47] VITALS: BP 126/82
== END 2019-07-31 12:35 | disposition left against medical advice (07) ==
LOC: ER 05:40
DX: J36 Peritonsillar abscess (principal); R68.83 Chills (without fever); R09.81 Nasal congestion; J44.9 Chronic obstructive pulmonary disease, unspecified; E11.9 Type 2 diabetes mellitus without complications; I48.91 Unspecified atrial fibrillation; I25.10 Atherosclerotic heart disease of native coronary artery without angina pectoris; I10 Essential (primary) hypertension; Z79.899 Other long term (current) drug therapy; Z79.02 Long term (current) use of antithrombotics/antiplatelets; Z95.5 Presence of coronary angioplasty implant and graft; Z88.8 Allergy status to other drugs, medicaments and biological substances; Z53.29 Procedure and treatment not carried out because of patient's decision for other reasons
CPT/HCPCS: 99283; 96375; 96365; 96366; 36415; 87040; 87070; 87880; 85025; 86308; 80053; 70491; J3490; J1100

== ENCOUNTER 2019-08-03 08:33 | Emergency (ER) | payer MEDICARE, MEDICAID ==
[2019-08-03] MEDS ORDERED: NORMAL SALINE 500 ML IV ONE (09:44)
--- NOTE | 2019-08-03 10:04 | ER Document Report ---
ED General - General Chief Complaint: Abscess Stated Complaint: POSSIBLE ABSCESS Time Seen by Provider: 08/03/19 09:40 Primary Care Provider: KIRK BEAULIEU MD [Primary Care Provider] - Follow up as needed TRAVEL OUTSIDE OF THE [place] IN LAST 30 DAYS: No - HPI Notes: Patient presents for concern of peritonsillar abscess diagnosed 2 days ago. He states that he was not properly dressed and not taking a shower so he left AMA he comes today with a backpack stating he is ready be transferred to [place] for drainage. Patient denies any problems eating. He denies any worsening of symptoms. He was prescribed clindamycin and has been taking it 4 times a day as prescribed. No fevers or chills. He is on Eliquis for atrial fibrillation. - Related Data Allergies/Adverse Reactions: fluoxetine [From Prozac] Allergy (Verified 04/28/19 14:33) Home Medications: allopurinol. eliquis. metoprolol. 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, Hx Diabetes Mellitus Type 2 - insulin-dependent Renal/ Medical History: Denies: Hx Peritoneal Dialysis GI Medical History: Reports: Hx Gastroesophageal Reflux Disease Musculoskeletal Medical History: Reports Hx Arthritis Psychiatric Medical History: Reports: Hx Depression Past Surgical History: Reports: Hx Cardiac Catheterization - w/ stent x1 (2008 or 2009) - Immunizations Immunizations up to date: Yes Hx Diphtheria, Pertussis, Tetanus Vaccination: Yes Review of Systems - Review of Systems Constitutional: No symptoms reported EENT: See HPI Cardiovascular: No symptoms reported Respiratory: No symptoms reported Gastrointestinal: No symptoms reported Genitourinary: No symptoms reported Male Genitourinary: No symptoms reported Musculoskeletal: No symptoms reported Skin: No symptoms reported Hematologic/Lymphatic: No symptoms reported Neurological/Psychological: No symptoms reported Physical Exam - Vital signs Vitals: Temp Pulse Resp BP Pulse Ox 97.4 F 78 18 149/85 H 98 08/03/19 08:38 08/03/19 08:38 08/03/19 08:38 08/03/19 08:38 08/03/19 08:38 - General General appearance: Appears well, Alert - HEENT Head: Normocephalic, Atraumatic Eyes: Normal Conjunctiva: Normal Cornea: Normal Pupils: PERRL Pharynx: Other - Swelling of right tonsil with mild purulence. No Leonard angina no posterior pharynx bulging. Neck: Normal. No: Lymphadenopathy - Respiratory Respiratory status: No respiratory distress Chest status: Nontender Breath sounds: Normal - Cardiovascular Rhythm: Regular Heart sounds: Normal auscultation Course - Re-evaluation Re-evalutation: 08/03/19 10:03 Pleasant well-appearing patient in no acute distress not having any problems eating or drinking has been medically compliant with the clindamycin he was provided 2 days ago. Return to emergency department to have abscess drained. Will reimage patient to get serial exam on abscess to see if it is improving with oral antibiotic therapy. No signs of any respiratory compromise retrophar yngeal abscess at this time. He had negative strep test 2 days ago but is also on clindamycin for his peritonsillar abscess. 08/03/19 12:32 Attempted to drain peritonsillar abscess using 18-gauge needle and sheath it approximately 1 cm to avoid any carotid artery involvement. Tried in the anterior middle and posterior poles of peritonsillar abscess without any purulence drained. Attempting to contact ENT at this time 08/03/19 12:[address] Huerta (ENT). He advised to send patient to his clinic where he will perform peritonsillar abscess drain in his office. - Vital Signs Vital signs: Temp Pulse Resp BP Pulse Ox 97.4 F 78 18 149/85 H 98 08/03/19 08:38 08/03/19 08:38 08/03/19 08:38 08/03/19 08:38 08/03/19 08:38 - Laboratory Result Diagrams: 08/03/19 10:09 08/03/19 10:09 Laboratory results interpreted by me: 08/03/19 08/03/19 10:09 10:09 RDW 16.8 H BUN 22 H Glucose 116 H Discharge - Discharge Clinical Impression: Peritonsillar abscess Condition: Good Disposition: HOME, SELF-CARE Additional Instructions: Continue take your antibiotics as prescribed Referrals: MINNIE HUERTA MD [ACTIVE STAFF] - Follow up as needed (Please go to the ENT office today for drainage of your abscess)
[2019-08-03 10:17] LABS: ABSOLUTE BASOPHILS # (AUTO) 0.1 10^3/uL (0.0-0.2); ABSOLUTE EOSINOPHILS # (AUTO) 0.1 10^3/uL (0.0-0.6); ABSOLUTE LYMPHOCYTES (AUTO) 2.9 10^3/uL (0.5-4.7); ABSOLUTE MONOCYTES (AUTO) 0.8 10^3/uL (0.1-1.4); ABSOLUTE NEUT (AUTO) 4.6 10^3/uL (1.7-8.2); EOSINOPHILS % (AUTO) 1.2 % (0-6); HEMATOCRIT 46.9 % (37.9-51.0); HEMOGLOBIN 15.4 g/dL (13.5-17.0); LYMPHOCYTES % (AUTO) 34.2 % (13-45); MEAN CORPUSCULAR HGB CONC 32.9 g/dL (32.0-36.0); MEAN CORPUSCULAR VOLUME 88 fl (80-97); MONOCYTES % (AUTO) 8.9 % (3-13); PLATELET COUNT 173 10^3/uL (150-450); RED BLOOD COUNT 5.33 10^6/uL (4.35-5.55); RED CELL DISTRIBUTION WIDTH 16.8 % (11.5-14.0); SEGMENTED NEUTROPHILS % (AUTO) 54.7 % (42-78); TOTAL CELLS COUNTED % (AUTO) 100 %; WHITE BLOOD COUNT 8.5 10^3/uL (4.0-10.5)
[2019-08-03 10:32] LABS: ALBUMIN 3.7 g/dL (3.5-5.0); ALKALINE PHOSPHATASE 103 U/L (38-126); ANION GAP 10 (5-19); ASPARTATE AMINO TRANSFERASE 30 U/L (17-59); BILIRUBIN,DIRECT 0.1 mg/dL (0.0-0.4); BILIRUBIN,TOTAL 0.8 mg/dL (0.2-1.3); BLOOD UREA NITROGEN 22 mg/dL (7-20); CARBON DIOXIDE 26 mmol/L (22-30); CHLORIDE 104 mmol/L (98-107); GLUCOSE 116 mg/dL (75-110); TOTAL PROTEIN 7.6 g/dL (6.3-8.2)
[2019-08-03] MEDS ORDERED: BENZOCAINE 20% AEROSOL SPRAY 60 GM TP ONE (10:52)
[2019-08-03] MEDS ORDERED: LIDOCAINE 1% INJ (10 MG/ML) 10 ML MDV INJ ONE (10:53)
--- NOTE | 2019-08-03 11:01 | RADIOLOGY REPORT (SQ) ---
EXAM DESCRIPTION: CT SOFT TISSUE NECK WITH COMPLETED DATE/TIME: 08/03/2019 10:38 am REASON FOR STUDY: Peritonsillar abscess COMPARISON: CT soft tissue neck with contrast from 07/31/2019. TECHNIQUE: Post IV contrasted scanning from skull base through lung apices with review of bone, soft tissue and lung windows. Reconstructed coronal and sagittal MPR images reviewed. All images stored on PACS. All CT scanners at this facility use dose modulation, iterative reconstruction, and/or weight based d osing when appropriate to reduce radiation dose to as low as reasonably achievable (ALARA). [facility]: Dose Right [facility]: CareDose [facility]: Dose Right [facility]: Teradose 4D [facility]: Datamolino CONTRAST TYPE AND DOSE: 75 mL Omnipaque 350- low osmolar. RENAL FUNCTION: Creatinine 1.15 mg per dL. LIMITATIONS: None. FINDINGS: SKULL BASE: Intact. MAJOR SALIVARY GLANDS: No gross abnormality of the parotid and submandibular glands. LYMPHADENOPATHY: Prominent left-sided level II and III lymph nodes that measure up to 9 mm in short a xis diameter. MUCOSAL MASSES OR ASYMMETRY: Asymmetric enlargement of the left palatine tonsil with a focal hypodens e collection that measures 1.9 x 1.9 cm ; the collection has increased in size from the prior CT. Th e fat planes in the adjacent parapharyngeal space are preserved. There is no fluid in the retrophary ngeal space LARYNX/CORDS: No abnormal findings. VASCULAR STRUCTURES: Atherosclerotic calcification of the carotid bifurcations without a high-grade s tenosis. LUNG APICES: Clear. BONES: Intact. THYROID: The thyroid gland is heterogeneous. PARANASAL SINUSES: Clear. OTHER: No other findings. IMPRESSION: Enlarging left peritonsillar abscess that measures approximately 1.9 x 1.9 cm compared t o 1.8 x 1.5 cm on the prior CT. COMMENT: This report was called to JAMES PIERSON MD at10:55 on 08/03/2019. TECHNICAL DOCUMENTATION: JOB ID: [id number] Quality ID # [id number]: Final reports with documentation of one or more dose reduction techniques (e.g., Au tomated exposure control, adjustment of the mA and/or kV according to patient size, use of iterative reconstruction technique) 2010 [employer]- All Rights Reserved Reading location - IP[facility]workstation name: [email or web address]
[2019-08-03 13:21] VITALS: BP 121/65
== END 2019-08-03 13:24 | disposition home or self-care (01) ==
LOC: ER 08:33
DX: J36 Peritonsillar abscess (principal); I48.91 Unspecified atrial fibrillation; Z79.02 Long term (current) use of antithrombotics/antiplatelets; E11.9 Type 2 diabetes mellitus without complications; Z79.4 Long term (current) use of insulin; Z79.899 Other long term (current) drug therapy; Z88.8 Allergy status to other drugs, medicaments and biological substances; Z95.5 Presence of coronary angioplasty implant and graft
CPT/HCPCS: 99284; 36415; 85025; 80053; 70491; J3490; J7040; 87070; 87075; 87077; 87205